=== PATIENT | female | born 1945 | race Caucasian/White ===

== ENCOUNTER 2016-12-27 00:30 | Inpatient (IN) | payer MEDICARE ==
[2016-12-27] MEDS ORDERED: DILTIAZEM HCL/D5W 125 MG/125 ML RTUINJ IV ONE (01:09)
[2016-12-27] MEDS ORDERED: DILTIAZEM HCL/D5W 125 ML IV PRN ×2 (01:09→09:03)
[2016-12-27] MEDS ORDERED: DILTIAZEM HCL INJ 25 MG/5 ML VIAL IV ONE (01:09)
--- NOTE | 2016-12-27 01:09 | ER Document Report ---
ED Cardiac - General Chief Complaint: Chest Pain Stated Complaint: CHEST PAIN Notes: The patient is a 71-year-old female, past medical history A. fib (not on any meds or blood thinners), presents with substernal chest pressure that started 2 hours ago. She has had this in the past and says that it is when she goes into rapid A. fib. She denies shortness of breath, syncope, nausea, vomiting, back pain, fevers, urinary symptoms, leg swelling or cough. TRAVEL OUTSIDE OF THE [place] IN LAST 30 DAYS: No - Related Data Allergies/Adverse Reactions: Penicillins Allergy (Verified 09/09/16 03:37) Past Medical History - General Information source: Patient - Social History Smoking Status: Unknown if Ever Smoked Family History: Reviewed & Not Pertinent - Past Medical History Cardiac Medical History: Reports: Hx Atrial Fibrillation Denies: Hx Congestive Heart Failure, Hx DVT, Hx Heart Attack, Hx Hypercholesterolemia, Hx Pulmonary Embolism Pulmonary Medical History: Denies: Hx Asthma, Hx COPD Neurological Medical History: Denies: Hx Seizures Endocrine Medical History: Denies: Hx Diabetes Mellitus Type 1, Hx Diabetes Mellitus Type 2, Hx Hyperthyroidism, Hx Hypothyroidism GI Medical History: Denies: Hx Cirrhosis, Hx Hepatitis Musculoskeltal Medical History: Reports Hx Arthritis - Probable arthritis. Chronic back pain. Psychiatric Medical History: Denies: Hx Depression Infectious Medical History: Denies: Hx Hepatitis Review of Systems - Review of Systems Notes: REVIEW OF SYSTEMS: CONSTITUTIONAL: -fevers, -chills EENT: -eye pain, -difficulty swallowing, -nasal congestion CARDIOVASCULAR: +chest pain, -syncope. RESPIRATORY: -cough, -SOB GASTROINTESTINAL: -abdominal pain, -nausea, -vomiting, -diarrhea GENITOURINARY: -dysuria, -hematuria MUSCULOSKELETAL: -back pain, -neck pain SKIN: -rash or skin lesions. HEMATOLOGIC: -easy bruising or bleeding. LYMPHATIC: -swollen, enlarged glands. NEUROLOGICAL: -altered mental status or loss of consciousness, -headache, - neurologic symptoms PSYCHIATRIC: -anxiety, -depression. ALL OTHER SYSTEMS REVIEWED AND NEGATIVE. Physical Exam - Vital signs Vitals: Resp 29 H 12/27/16 00:46 - Notes Notes: PHYSICAL EXAMINATION: GENERAL: Well-appearing, well-nourished and in no acute distress. HEAD: Atraumatic, normocephalic. EYES: Pupils equal round and reactive to light, extraocular movements intact, sclera anicteric, conjunctiva are normal. ENT: nares patent, oropharynx clear without exudates. Moist mucous membranes. NECK: Normal range of motion, supple without lymphadenopathy LUNGS: Breath sounds clear to auscultation bilaterally and equal. No wheezes rales or rhonchi. HEART: Irregularly irregular rate. ABDOMEN: Soft, nontender, normoactive bowel sounds. No guarding, no rebound. No masses appreciated. EXTREMITIES: Normal range of motion, no pitting or edema. No cyanosis. NEUROLOGICAL: Cranial nerves grossly intact. Normal speech, normal gait. Normal sensory, motor, and reflex exams. PSYCH: Normal mood, normal affect. SKIN: Warm, Dry, normal turgor, no rashes or lesions noted. Course - Re-evaluation Re-evalutation: 12/27/16 03:04 71 yo female with A fib w/ RVR. Chest pain improved after rate controlled. Heart rate controlled in the 90s after 15 mg diltiazem and on a 5 mg/hour drip. Chest x-ray does not show any evidence of fluid overload. She is not taking any of her home medications prescribed to her and not on any blood thinners. Will admit patient for further evaluation and treatment of her A. fib with RVR and chest pain. Dr. Banegas is not accepting any patients at this time. - Vital Signs Vital signs: Temp Pulse Resp BP Pulse Ox 20 142/110 H 97 12/27/16 03:01 12/27/16 03:01 12/27/16 03:01 - Laboratory Result Diagrams: 12/27/16 01:20 12/27/16 01:20 Laboratory results interpreted by me: 12/27/16 12/27/16 12/27/16 01:20 01:20 01:20 MCV 98 H RDW 14.5 H Seg Neutrophils % 82.0 H Lymphocytes % 8.7 L PT 16.5 H BUN 25 H Est GFR ( Amer) 54 L Est GFR (Non-Af Amer) 45 L Glucose 121 H Calcium 10.3 H NT-Pro-B Natriuret Pep 12/27/16 01:20 MCV RDW Seg Neutrophils % Lymphocytes % PT BUN Est GFR ( Amer) Est GFR (Non-Af Amer) Glucose Calcium NT-Pro-B Natriuret Pep 7970 H - Diagnostic Test Radiology reviewed: Image reviewed, Reports reviewed Radiology results interpreted by me: CXR: NAD - EKG Interpretation by Me EKG shows normal: QRS Complexes, ST-T Waves Rate: Tachycardia Rhythm: A.Fib Critical Care Note - Critical Care Note Total time excluding time spent on procedures (mins): 45 Discharge - Discharge Clinical Impression: Atrial fibrillation with RVR Chest pain Qualifiers: Chest pain type: unspecified Qualified Code(s): R07.9 - Chest pain, unspecified Condition: Good Disposition: ADMITTED INPATIENT
[2016-12-27] MEDS ORDERED: DILTIAZEM HCL INJ 25 MG/5 ML VIAL ONE (01:10)
[2016-12-27] MEDS ORDERED: ASPIRIN 325 MG TABLET PO ONE (01:10)
[2016-12-27 01:27] LABS: ABSOLUTE BASOPHILS # (AUTO) 0.1 10^3/uL (0.0-0.2); ABSOLUTE EOSINOPHILS # (AUTO) 0.1 10^3/uL (0.0-0.6); ABSOLUTE LYMPHOCYTES (AUTO) 0.8 10^3/uL (0.5-4.7); ABSOLUTE MONOCYTES (AUTO) 0.7 10^3/uL (0.1-1.4); ABSOLUTE NEUT (AUTO) 7.6 10^3/uL (1.7-8.2); BASOPHILS % (AUTO) 0.6 % (0-2); EOSINOPHILS % (AUTO) 0.7 % (0-6); HEMATOCRIT 38.3 % (36.0-47.0); HEMOGLOBIN 12.9 g/dL (12.0-15.5); HGB HCT DIFFERENCE 0.4; LYMPHOCYTES % (AUTO) 8.7 % (13-45); MEAN CORPUSCULAR HGB CONC 33.6 g/dL (32.0-36.0); MEAN CORPUSCULAR VOLUME 98 fl (80-97); RED CELL DISTRIBUTION WIDTH 14.5 % (11.5-14.0); WHITE BLOOD COUNT 9.3 10^3/uL (4.0-10.5)
[2016-12-27 01:38] LABS: PROTHROMBIN TIME 16.5 SEC (11.4-15.4)
[2016-12-27 01:39] LABS: PARTIAL THROMBOPLASTIN TIME 29.3 SEC (23.5-35.8)
[2016-12-27 01:45] LABS: ANION GAP 14 (5-19); BLOOD UREA NITROGEN 25 mg/dL (7-20); CALCIUM 10.3 mg/dL (8.4-10.2); CARBON DIOXIDE 22 mmol/L (22-30); CHLORIDE 107 mmol/L (98-107); CREATINE KINASE 98 U/L (30-135); CREATININE RESULT 1.19 mg/dL (0.52-1.25); GLUCOSE 121 mg/dL (75-110); POTASSIUM 4.6 mmol/L (3.6-5.0); SODIUM 143.3 mmol/L (137-145)
[2016-12-27 01:58] LABS: TROPONIN I 0.024 ng/mL
[2016-12-27] MEDS ORDERED: APIXABAN 5 MG TABLET PO ONE (05:24)
--- NOTE | 2016-12-27 08:05 | ER Document Report ---
ED General - General Chief Complaint: Chest Pain Stated Complaint: CHEST PAIN TRAVEL OUTSIDE OF THE [place] IN LAST 30 DAYS: No - Related Data Allergies/Adverse Reactions: Penicillins Allergy (Verified 09/09/16 03:37) Past Medical History - General Information source: Patient - Social History Smoking Status: Unknown if Ever Smoked Family History: Reviewed & Not Pertinent - Past Medical History Cardiac Medical History: Reports: Hx Atrial Fibrillation Denies: Hx Congestive Heart Failure, Hx DVT, Hx Heart Attack, Hx Hypercholesterolemia, Hx Pulmonary Embolism Pulmonary Medical History: Denies: Hx Asthma, Hx COPD Neurological Medical History: Denies: Hx Seizures Endocrine Medical History: Denies: Hx Diabetes Mellitus Type 1, Hx Diabetes Mellitus Type 2, Hx Hyperthyroidism, Hx Hypothyroidism GI Medical History: Denies: Hx Cirrhosis, Hx Hepatitis Musculoskeltal Medical History: Reports Hx Arthritis - Probable arthritis. Chronic back pain. Psychiatric Medical History: Denies: Hx Depression Infectious Medical History: Denies: Hx Hepatitis Physical Exam - Vital signs Vitals: Resp 29 H 12/27/16 00:46 Course - Re-evaluation Re-evalutation: 12/27/16 08:[address] Napoles on of the hospitalist team. Patient otherwise stable will be admitted to the [facility] for further evaluation of her A. fib RVR and chest pain. - Vital Signs Vital signs: Temp Pulse Resp BP Pulse Ox 97.6 F 15 133/97 H 95 12/27/16 07:06 12/27/16 07:01 12/27/16 06:09 12/27/16 07:01 - Laboratory Result Diagrams: 12/27/16 01:20 12/27/16 01:20 Laboratory results interpreted by me: 12/27/16 12/27/16 12/27/16 01:20 01:20 01:20 MCV 98 H RDW 14.5 H Seg Neutrophils % 82.0 H Lymphocytes % 8.7 L PT 16.5 H BUN 25 H Est GFR ( Amer) 54 L Est GFR (Non-Af Amer) 45 L Glucose 121 H Calcium 10.3 H NT-Pro-B Natriuret Pep 12/27/16 01:20 MCV RDW Seg Neutrophils % Lymphocytes % PT BUN Est GFR ( Amer) Est GFR (Non-Af Amer) Glucose Calcium NT-Pro-B Natriuret Pep 7970 H Discharge - Discharge Clinical Impression: Atrial fibrillation with RVR Chest pain Qualifiers: Chest pain type: unspecified Qualified Code(s): R07.9 - Chest pain, unspecified Condition: Good Disposition: ADMITTED INPATIENT Admitting Provider: Divian napoles Unit Admitted: [facility]
[2016-12-27] MEDS ORDERED: ACETAMINOPHEN 325 MG TABLET PO PRN (08:53)
[2016-12-27] MEDS ORDERED: ONDANSETRON HCL INJ/PF 4 MG/2 ML SDV IV PRN (08:59)
--- NOTE | 2016-12-27 09:20 | PDOC H&P ---
History of Present Illness Admission Date/PCP: 12/27/16 08:25 Patient complains of: Palpitation History of Present Illness: RENEE BONNER is a 71 year old female, with history of cardiomyopathy, congestive heart failure, ejection fraction of 40%, atrial fibrillation ran out of her medications for quite a while, started to develop palpitations last night subsequently followed by lightheadedness and generalized weakness with chest pain and mild shortness of breath. Denies diarrhea. Patient feels a little nauseated. No vomiting however. No chills or fever. No cough or sinus congestion. Patient denies intake of [id number]-[id number] decongestants, nor a lot of caffeine. Patient was admitted late last year for similar symptoms. Patient was discharged home on Coreg, digoxin, eliquis. Patient took the medication and subsequently was lost to follow-up. She denies having any local doctor. In the emergency room she was found to be in rapid atrial fibrillation , intravenous Cardizem was given, eventually she was placed on a drip and a heart rate was controlled. She was then referred for admission. Past Medical History Past Medical History: Medication reconciliation, patient currently has no medications as she has not been taking any for quite a while. Cardiac Medical History: Reports: Atrial Fibrillation, Congestive Heart Failure , Hypertension, Other - Cardiomyopathy ejection fraction of 40% Denies: DVT, Myocardial Infarction, Hyperlipidema, Pulmonary Embolism Pulmonary Medical History: Denies: Asthma, Chronic Obstructive Pulmonary Disease (COPD) Neurological Medical History: Denies: Seizures Endocrine Medical History: Denies: Diabetes Mellitus Type 1, Diabetes Mellitus Type 2, Hyperthyroidism, Hypothyroidism GI Medical History: Denies: Cirrhosis, Hepatitis Musculoskeltal Medical History: Reports: Arthritis - Probable arthritis. Chronic back pain., Other - Chronic back pain Psychiatric Medical History: Denies: Depression Past Surgical History Past Surgical History: Reports: None - Denies any surgery recently Social History Information Source: Patient Smoking Status: Never Smoker Frequency of Alcohol Use: None Hx Recreational Drug Use: No Drugs: None Family History Family History: None - Reported Parental Family History Reviewed: Yes Children Family History Reviewed: Yes Sibling(s) Family History Reviewed.: Yes Medication/Allergy Home Medications: Apixaban [Eliquis 2.5 mg Tablet] 5 mg PO BID #120 tablet 09/11/16 Aspirin [Ecotrin 81 mg EC Tablet] 81 mg PO DAILY tabec 09/11/16 Carvedilol [Coreg 6.25 mg Tablet] 6.25 mg PO Q12 #60 tablet 09/11/16 Digoxin [Lanoxin 0.125 mg Tablet] 0.125 mg PO DAILY #30 tablet 09/11/16 Furosemide [Lasix 40 mg Tablet] 20 mg PO DAILY #30 tablet 09/11/16 Lisinopril [Prinivil 5 mg Tablet] 5 mg PO Q12 #60 tablet 09/11/16 Allergies/Adverse Reactions: Penicillins Allergy (Verified 09/09/16 03:37) Review of Systems Constitutional: PRESENT: weakness - Generalized. ABSENT: chills, fever(s), headache(s), weight gain, weight loss Eyes: ABSENT: visual disturbances Ears: ABSENT: hearing changes Nose, Mouth, and Throat: ABSENT: headache(s), mouth pain, sore throat, vertigo Cardiovascular: PRESENT: chest pain, dyspnea on exertion, palpitations. ABSENT : edema, orthropnea Respiratory: PRESENT: dyspnea. ABSENT: cough, hemoptysis, sputum Gastrointestinal: ABSENT: abdominal pain, constipation, diarrhea, hematemesis, hematochezia, melena, nausea, vomiting Genitourinary: PRESENT: dysuria. ABSENT: hematuria, nocturia Musculoskeletal: ABSENT: joint swelling Integumentary: ABSENT: pruritus, rash, wounds Neurological: ABSENT: abnormal gait, abnormal speech, confusion, dizziness, focal weakness, syncope Psychiatric: ABSENT: anxiety, depression, homidical ideation, suicidal ideation Endocrine: ABSENT: cold intolerance, heat intolerance, polydipsia, polyphagia, polyuria Hematologic/Lymphatic: ABSENT: easy bleeding, easy bruising Physical Exam Vital Signs: Temp Pulse Resp BP Pulse Ox 97.6 F 15 133/97 H 95 12/27/16 07:06 12/27/16 07:01 12/27/16 06:09 12/27/16 07:01 General appearance: PRESENT: no acute distress, cooperative, well-developed, well-nourished Head exam: PRESENT: atraumatic, normocephalic Eye exam: PRESENT: conjunctiva pink, EOMI, PERRLA. ABSENT: scleral icterus Ear exam: PRESENT: normal external ear exam Mouth exam: PRESENT: moist, neck supple, tongue midline Throat exam: ABSENT: post pharyngeal erythema, tonsillar erythema Neck exam: ABSENT: carotid bruit, JVD, lymphadenopathy, thyromegaly Respiratory exam: PRESENT: clear to auscultation susan, unlabored. ABSENT: rales , rhonchi, wheezes Cardiovascular exam: PRESENT: irregular rhythm, +S1, +S2. ABSENT: diastolic murmur, rubs, systolic murmur Pulses: PRESENT: normal dorsalis pedis pul Vascular exam: PRESENT: normal capillary refill GI/Abdominal exam: PRESENT: normal bowel sounds, soft. ABSENT: distended, guarding, mass, organolmegaly, rebound, tenderness Rectal exam: PRESENT: deferred Extremities exam: PRESENT: full ROM. ABSENT: calf tenderness, clubbing, pedal edema Neurological exam: PRESENT: alert, awake, oriented to person, oriented to place , oriented to time, oriented to situation Psychiatric exam: PRESENT: appropriate affect, normal mood. ABSENT: homicidal ideation, suicidal ideation Skin exam: PRESENT: dry, intact, warm. ABSENT: cyanosis, rash Results Impressions: Chest X-Ray 12/27/16 01:05 IMPRESSION: HEART ENLARGED WITHOUT FAILURE. NO OTHER SIGNIFICANT RADIOGRAPHIC FINDING IN THE CHEST. Assessment & Plan - Diagnosis (1) Atrial fibrillation with RVR Is this a current diagnosis for this admission?: Yes (2) Chest pain Qualifiers: Chest pain type: unspecified Qualified Code(s): R07.9 - Chest pain, unspecified Is this a current diagnosis for this admission?: Yes (3) Hypercalcemia Is this a current diagnosis for this admission?: Yes (4) Dysuria Is this a current diagnosis for this admission?: Yes (5) Hypertension Qualifiers: Hypertension type: essential hypertension Qualified Code(s): I10 - Essential (primary) hypertension Is this a current diagnosis for this admission?: Yes (6) Cardiomyopathy Qualifiers: Cardiomyopathy type: unspecified Qualified Code(s): I42.9 - Cardiomyopathy, unspecified Is this a current diagnosis for this admission?: Yes (7) Chronic back pain Qualifiers: Back pain location: low back pain Back pain laterality: unspecified Sciatica presence: without sciatica Qualified Code(s): M54.5 - Low back pain; G89.29 - Other chronic pain Is this a current diagnosis for this admission?: Yes (8) Congestive heart failure Qualifiers: Congestive heart failure type: systolic Congestive heart failure chronicity: chronic Qualified Code(s): I50.22 - Chronic systolic ( congestive) heart failure Is this a current diagnosis for this admission?: Yes - Time Time Spent: 50 to 70 Minutes Within: within 72 hours - Inpatient Certification Based on my medical assessment, after consideration of the patient's comorbidities, presenting symptoms, or acuity I expect that the services needed warrant INPATIENT care.: Yes I certify that my determination is in accordance with my understanding of Medicare's requirements for reasonable and necessary INPATIENT services [42 CFR 412.3e].: Yes Medical Necessity: Significant Comorbidiites Make Outpatient Treatment Too Risky , Need Close Monitoring Due to Risk of Patient Decompensation, Need For IV Fluids, Risk of Complication if Not Cared For in Hospital 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 We will continue the Cardizem drip and wean. We will begin oral Cardizem. I will resume the patient's Coreg as well as eliquis. We will consult cardiology for further evaluation. We will obtain cardiac enzymes 3. We will do a urinalysis and gently hydrate the patient and monitor calcium level. Patient has been educated about compliance and importance of outpatient follow-up and she understood. Further testing depends on the initial evaluation as outlined above.
[2016-12-27] MEDS: NORMAL SALINE 1000 ML 1,000 ML IV PRN ×2 (09:46→23:55)
[2016-12-27] MEDS ORDERED: APIXABAN 2.5 MG TABLET PO SCH (10:00)
[2016-12-27] MEDS: APIXABAN 5 MG TABLET PO SCH ×2 (11:35→17:46)
[2016-12-27] MEDS: ASPIRIN 81 MG TABLET, ENT COATED PO SCH (11:36)
[2016-12-27] MEDS: CARVEDILOL 6.25 MG TABLET PO SCH ×2 (11:36→21:28)
[2016-12-27] MEDS: DOCUSATE SODIUM 100 MG CAPSULE PO SCH ×2 (11:37→17:48)
[2016-12-27 12:18] LABS: APPEARANCE,URINE CLEAR; BILIRUBIN,URINE NEGATIVE (NEGATIVE); GLUCOSE, URINE NEGATIVE (NEGATIVE); KETONES,URINE NEGATIVE (NEGATIVE); LEUKOCYTE ESTERASE,URINE NEGATIVE (NEGATIVE); NITRITE,URINE NEGATIVE (NEGATIVE); PROTEIN,URINE 30 mg/dL (NEGATIVE); URINE SPECIFIC GRAVITY 1.019
--- NOTE | 2016-12-27 13:13 | PDOC CONSULTATION ---
Consultation Consult Date: 12/27/16 Attending physician:: ALLYN MARTINEZ Consult reason:: Atrial fibrillation, CHF History of Present Illness Admission Date/PCP: 12/27/16 08:53 Patient complains of: Shortness of breath History of Present Illness: RENEE BONNER is a 71 year old female, with history of cardiomyopathy, congestive heart failure, ejection fraction of 40%, atrial fibrillation ran out of her medications for quite a while, started to develop palpitations last night subsequently followed by lightheadedness and generalized weakness with chest pain and mild shortness of breath. Denies diarrhea. Patient feels a little nauseated. No vomiting however. No chills or fever. No cough or sinus congestion. Patient denies intake of dhze-ygy-xgcrzur decongestants, nor a lot of caffeine. Patient was admitted late last year for similar symptoms. Patient was discharged home on Coreg, digoxin, eliquis. Patient took the medication and subsequently was lost to follow-up. She denies having any local doctor. In the emergency room she was found to be in rapid atrial fibrillation , intravenous Cardizem was given, eventually she was placed on a drip and a heart rate was controlled. I was asked to evaluate patient and help with management in view of CHF, atrial fibrillation, depressed LVEF Past Medical History Cardiac Medical History: Reports: Atrial Fibrillation, Congestive Heart Failure , Hypertension, Other - Cardiomyopathy ejection fraction of 40% Denies: DVT, Myocardial Infarction, Hyperlipidema, Pulmonary Embolism Pulmonary Medical History: Denies: Asthma, Chronic Obstructive Pulmonary Disease (COPD) Neurological Medical History: Denies: Seizures Endocrine Medical History: Denies: Diabetes Mellitus Type 1, Diabetes Mellitus Type 2, Hyperthyroidism, Hypothyroidism GI Medical History: Denies: Cirrhosis, Hepatitis Musculoskeltal Medical History: Reports: Arthritis - Probable arthritis. Chronic back pain., Other - Chronic back pain Psychiatric Medical History: Denies: Depression Past Surgical History Past Surgical History: Reports: None - Denies any surgery recently Social History Information Source: Patient Smoking Status: Never Smoker Frequency of Alcohol Use: None Hx Recreational Drug Use: No Drugs: None - Advance Directive Resuscitation Status: Full Code Family History Family History: None - Reported Parental Family History Reviewed: Yes Children Family History Reviewed: Yes Sibling(s) Family History Reviewed.: Yes - Negative for premature coronary artery disease or sudden cardiac in the family amongst first degree relatives. Medication/Allergy Home Medications: No Home Medications 12/27/16 Allergies/Adverse Reactions: Penicillins Allergy (Verified 09/09/16 03:37) Review of Systems Review of Systems: Please see history of present illness and past medical history as wall. Constitutional: No fever or chills reported. Head : No recent chronic headaches, recent head injury. Eyes: No recent eye pain, diplopia, redness, discharge, acute visual changes. Ears: No recent chronic ear pain, acute hearing loss, ear discharge. Oral cavity: No recent ulcerations, bleeding, oral cavity discomfort. Neck: No recent acute neck pain reported. Hematologic: No recent easy bruising or bleeding or hematologic malignancy reported. Lymphatic: No recent lymphatic malignancy, chronic lymphadenopathy reported yet Cardiovascular system review: See history of present illness. Respiratory system review: No recent chronic cough, hemoptysis, blood clots in the lungs reported. Shortness of breath on exertion Gastrointestinal system review: Negative for any recent acute or chronic abdominal pain, hematemesis, melena, recent change in bowel habits. Genitourinary system review: No recent acute or chronic hematuria, flank pain, UTI etc. reported. Skin system review: Negative for any recent abnormal bruising, no rash, no pruritus reported. Neurologic: No prior history of strokes, mini strokes, seizure disorder. Psychologic: No history of major psychosis or depression reported. Musculoskeletal: Minor aches and pains reported. No acute joint swelling reported. Endocrine: No recent polyuria, polydipsia, recent heat or cold intolerance. Physical Exam Vital Signs: Temp Pulse Resp BP Pulse Ox 97.6 F 25 H 134/92 H 93 12/27/16 07:06 12/27/16 10:01 12/27/16 10:01 12/27/16 10:01 Intake & Output 12/26/16 12/27/16 12/28/16 06:59 06:59 06:59 Weight 58.967 kg Exam: GENERAL: well-nourished and in no acute distress. Alert and oriented x3 HEAD: Atraumatic, normocephalic. EYES: Pupils equal round and reactive to light, extraocular movements intact, sclera anicteric, conjunctiva are normal. ENT: TMs normal, nares patent, oropharynx clear without exudates. Moist mucous membranes. No oral ulcerations or bleeding gums noted NECK: supple without lymphadenopathy. Trachea is central. No cervical or axillary lymphadenopathy noted. Carotids are 2+, JVD 12 CM LUNGS: Respiration seems nonlabored, no significant accessory muscle action noted. Bibasal a fine crackles are noted at both bases No significant dullness noted on percussion. CHEST: Palpation of the chest wall shows no significant chest wall tenderness. No other significant abnormalities noted. 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 ABDOMEN: Soft, no significant tenderness appreciated, normoactive bowel sounds. No guarding, no rebound. No rigidity noted . No masses appreciated. EXTREMITIES: Pedal pulses are 1-2+, no calf tenderness noted. No clubbing or cyanosis.1+ pedal edema noted NEUROLOGICAL: Focused neurological exam showed no significant neurologic deficit. Normal speech, no focal weakness appreciated. PSYCH: Normal mood, normal affect. Judgment and insight within normal limits. SKIN: No significant ecchymosis, rash, ulcerations or signs of pruritus noted. MUSCULOSKELETAL EXAM: No significant joint swelling noted. Results Laboratory Results: 12/27/16 11:55 Urine Color YELLOW Urine Appearance CLEAR Urine pH 6.0 Ur Specific [place] 1.019 Urine Protein 30 H Urine Glucose (UA) NEGATIVE Urine Ketones NEGATIVE Urine Blood NEGATIVE Urine Nitrite NEGATIVE Ur Leukocyte Esterase NEGATIVE Urine WBC (Auto) 0 EKG Comments: Atrial fibrillation with rapid ventricular response. No acute ST-T wave changes are noted. Impressions: Chest X-Ray 12/27/16 01:05 IMPRESSION: HEART ENLARGED WITHOUT FAILURE. NO OTHER SIGNIFICANT RADIOGRAPHIC FINDING IN THE CHEST. Assessment & Plan - Diagnosis (1) Atrial fibrillation with RVR Is this a current diagnosis for this admission?: Yes (2) Chest pain Qualifiers: Chest pain type: unspecified Qualified Code(s): R07.9 - Chest pain, unspecified Is this a current diagnosis for this admission?: Yes (3) Hypertension Qualifiers: Hypertension type: essential hypertension Qualified Code(s): I10 - Essential (primary) hypertension Is this a current diagnosis for this admission?: Yes (4) Cardiomyopathy Qualifiers: Cardiomyopathy type: unspecified Qualified Code(s): I42.9 - Cardiomyopathy, unspecified Is this a current diagnosis for this admission?: Yes (5) Noncompliance Is this a current diagnosis for this admission?: Yes - Notes Notes: Atrial fibrillation with rapid ventricular response: Currently on Cardizem drip. Will recommend switching to beta brooks and digoxin for rate control in view of history of CHF and cardiomyopathy. Chest pain: Patient did have a recent nuclear stress test which was negative for pharmacologic stress-induced ischemia. At this point, will follow patient with medical management. Hypertension: Reasonably well controlled. Blood pressure goal in this patient is 135/85 or less. This was discussed with the patient. Currently blood pressure under reasonable control. Better medication for this patient are LINDA inhibitor/ARB/beta brooks etc. discussed side effects of uncontrolled hypertension and also severe hypotension. Cardiomyopathy: We will optimize medical therapy. Noncompliance: Patient will benefit from CHF pathway education, social support and strategic planner intervention. - Time Time Spent: 30 to 50 Minutes - CODE STATUS was discussed, patient remains full code. Surrogate decision-maker unchanged. Multiple medical problems were addressed.More than 50% of the time spent coordinating care, discussing management plans with involved caregivers. Management plans discussed with involved personnels. Medical decision making was of moderate complexity.
[2016-12-27] MEDS ORDERED: DIGOXIN 0.25 MG TABLET PO ONE (14:30)
[2016-12-27] MEDS: DILTIAZEM HCL 30 MG TABLET PO SCH ×3 (14:50→23:41)
[2016-12-27 15:31] LABS: CREATINE KINASE MB 2.24 ng/mL (<4.55); TROPONIN I 0.025 ng/mL
[2016-12-27] MEDS ORDERED: INFLUENZA ADLT QUAD (36MOS+) 2016-17 VAC 0.5 ML SYR IM PRN (16:31)
[2016-12-27 21:04] LABS: CREATINE KINASE MB 2.34 ng/mL (<4.55); TROPONIN I 0.026 ng/mL
[2016-12-27] MEDS: FUROSEMIDE INJ/PF 40 MG/4 ML SDV IV SCH (21:28)
[2016-12-28] MEDS: DILTIAZEM HCL 30 MG TABLET PO SCH ×2 (06:38→11:56)
[2016-12-28] MEDS: LANSOPRAZOLE 30 MG TAB.RAP.DR PO SCH (06:38)
[2016-12-28 07:36] LABS: ANION GAP 10 (5-19); BLOOD UREA NITROGEN 23 mg/dL (7-20); CALCIUM 9.8 mg/dL (8.4-10.2); CARBON DIOXIDE 26 mmol/L (22-30); CHLORIDE 106 mmol/L (98-107); CREATININE RESULT 1.24 mg/dL (0.52-1.25); GLUCOSE 89 mg/dL (75-110); POTASSIUM 3.8 mmol/L (3.6-5.0); SODIUM 141.9 mmol/L (137-145)
--- NOTE | 2016-12-28 08:12 | EKG REPORT ---
SEVERITY:- ABNORMAL ECG - ATRIAL FIBRILLATION, V-RATE [id number] ABNRM R PROG, CONSIDER ASMI OR LEAD PLACEMENT BORDERLINE T WAVE ABNORMALITIES : Confirmed by: Sury Salinas MD 28-Dec-2016 08:11:55
[2016-12-28] MEDS: ASPIRIN 81 MG TABLET, ENT COATED PO SCH (10:27)
[2016-12-28] MEDS: CARVEDILOL 6.25 MG TABLET PO SCH ×2 (10:27→21:08)
[2016-12-28] MEDS: FUROSEMIDE INJ/PF 40 MG/4 ML SDV IV SCH (10:28)
[2016-12-28] MEDS: DIGOXIN 0.125 MG TABLET PO SCH (10:28)
[2016-12-28] MEDS: APIXABAN 5 MG TABLET PO SCH ×2 (10:29→17:17)
[2016-12-28] MEDS: DOCUSATE SODIUM 100 MG CAPSULE PO SCH ×2 (10:42→17:24)
--- NOTE | 2016-12-28 15:09 | PDOC PROGRESS REPORT ---
Subjective Progress Note for:: 12/28/16 Subjective:: Patient improved. Palpitation is less. Patient started on digoxin by cardiology service. She is off Cardizem drip. Patient denies any chest pain, shortness of breath, nausea or vomiting, dizziness. Able to ambulate around. shelter monitor showing episodes of bradycardia briefly Physical Exam Vital Signs: Temp Pulse Resp BP Pulse Ox 97.2 F 100 18 122/79 98 12/28/16 12:06 12/28/16 12:06 12/28/16 12:06 12/28/16 12:06 12/28/16 12:06 Intake & Output 12/27/16 12/28/16 12/29/16 06:59 06:59 06:59 Intake Total 1960 520 Output Total 800 Balance 1160 520 Weight 81.1 kg General appearance: PRESENT: no acute distress, cooperative Head exam: PRESENT: normocephalic Eye exam: PRESENT: EOMI Mouth exam: PRESENT: moist, neck supple Neck exam: ABSENT: JVD Respiratory exam: PRESENT: clear to auscultation susan. ABSENT: rhonchi, wheezes Cardiovascular exam: PRESENT: irregular rhythm. ABSENT: gallop GI/Abdominal exam: PRESENT: normal bowel sounds, soft. ABSENT: distended, tenderness Extremities exam: PRESENT: other - Trace lower extremity edema Neurological exam: PRESENT: alert, awake, oriented to situation Psychiatric exam: ABSENT: agitated Focused psych exam: ABSENT: restlessness Skin exam: PRESENT: dry, warm. ABSENT: cyanosis Results Laboratory Results: 12/28/16 06:47 12/28/16 06:47 Sodium 141.9 Potassium 3.8 Chloride 106 Carbon Dioxide 26 Anion Gap 10 BUN 23 H Creatinine 1.24 Est GFR ( Amer) 52 L Est GFR (Non-Af Amer) 43 L Glucose 89 Calcium 9.8 12/27/16 12/27/16 12/27/16 14:24 14:25 20:31 Creatine Kinase 71 75 CK-MB (CK-2) 2.24 Troponin I 0.025 12/27/16 20:31 Creatine Kinase CK-MB (CK-2) 2.34 Troponin I 0.026 Impressions: Chest X-Ray 12/27/16 01:05 IMPRESSION: HEART ENLARGED WITHOUT FAILURE. NO OTHER SIGNIFICANT RADIOGRAPHIC FINDING IN THE CHEST. Assessment & Plan - Diagnosis (1) Atrial fibrillation with RVR Is this a current diagnosis for this admission?: Yes (2) Chest pain Qualifiers: Chest pain type: unspecified Qualified Code(s): R07.9 - Chest pain, unspecified Is this a current diagnosis for this admission?: Yes (3) Hypercalcemia Is this a current diagnosis for this admission?: Yes (4) Dysuria Is this a current diagnosis for this admission?: Yes (5) Hypertension Qualifiers: Hypertension type: essential hypertension Qualified Code(s): I10 - Essential (primary) hypertension Is this a current diagnosis for this admission?: Yes (6) Cardiomyopathy Qualifiers: Cardiomyopathy type: unspecified Qualified Code(s): I42.9 - Cardiomyopathy, unspecified Is this a current diagnosis for this admission?: Yes (7) Chronic back pain Qualifiers: Back pain location: low back pain Back pain laterality: unspecified Sciatica presence: without sciatica Qualified Code(s): M54.5 - Low back pain; G89.29 - Other chronic pain Is this a current diagnosis for this admission?: Yes (8) Congestive heart failure Qualifiers: Congestive heart failure type: systolic Congestive heart failure chronicity: chronic Qualified Code(s): I50.22 - Chronic systolic ( congestive) heart failure Is this a current diagnosis for this admission?: Yes - Time Time Spent with patient: 15-24 minutes - Plan Summary Plan Summary: Discontinue Cardizem. Increase activity and ambulate around. Continue digoxin and Coreg. Monitor for bradycardia. It is stable , may be able to be discharged in the morning.
--- NOTE | 2016-12-28 15:58 | PDOC PROGRESS REPORT ---
Subjective Progress Note for:: 12/28/16 Subjective:: Patient seems to be doing better with gradual improvement. Pt is denying any chest arm or neck discomfort. Patient denying any PND, orthopnea. Patient denied any sustained palpitations, dizziness, syncope, near syncope. Patient denying any fever chills. Patient denying any other significant discomfort. Patient is maintaining atrial fibrillation with controlled ventricular response. Review of systems: Rest review of systems negative. Medications: Medications have been reviewed. Physical Exam Vital Signs: Temp Pulse Resp BP Pulse Ox 97.2 F 100 18 122/79 98 12/28/16 12:06 12/28/16 12:06 12/28/16 12:06 12/28/16 12:06 12/28/16 12:06 Intake & Output 12/27/16 12/28/16 12/29/16 06:59 06:59 06:59 Intake Total 1960 520 Output Total 800 Balance 1160 520 Weight 81.1 kg Exam: GENERAL: well-nourished and in no acute distress. Alert and oriented x3 HEAD: Atraumatic, normocephalic. EYES: Pupils equal round and reactive to light, extraocular movements intact, sclera anicteric, conjunctiva are normal. ENT: TMs normal, nares patent, oropharynx clear without exudates. Moist mucous membranes. No oral ulcerations or bleeding gums noted NECK: supple without lymphadenopathy. Trachea is central. No cervical or axillary lymphadenopathy noted. Carotids are 2+, JVD 10 CM LUNGS: Respiration seems nonlabored, no significant accessory muscle action noted. Bibasal a fine crackles noted at extreme base. No wheezes rales or rhonchi noted. No significant dullness noted on percussion. CHEST: Palpation of the chest wall shows no significant chest wall tenderness. No other significant abnormalities noted. 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 ABDOMEN: Soft, no significant tenderness appreciated, normoactive bowel sounds. No guarding, no rebound. No rigidity noted . No masses appreciated. EXTREMITIES: Pedal pulses are 1-2+, no calf tenderness noted. No clubbing or cyanosis.1+ pedal edema noted NEUROLOGICAL: Focused neurological exam showed no significant neurologic deficit. Normal speech, no focal weakness appreciated. PSYCH: Normal mood, normal affect. Judgment and insight within normal limits. SKIN: No significant ecchymosis, rash, ulcerations or signs of pruritus noted. MUSCULOSKELETAL EXAM: No significant joint swelling noted. Results Laboratory Results: 12/28/16 06:47 12/28/16 06:47 Sodium 141.9 Potassium 3.8 Chloride 106 Carbon Dioxide 26 Anion Gap 10 BUN 23 H Creatinine 1.24 Est GFR ( Amer) 52 L Est GFR (Non-Af Amer) 43 L Glucose 89 Calcium 9.8 12/27/16 12/27/16 12/27/16 14:24 14:25 20:31 Creatine Kinase 71 75 CK-MB (CK-2) 2.24 Troponin I 0.025 12/27/16 20:31 Creatine Kinase CK-MB (CK-2) 2.34 Troponin I 0.026 Impressions: Chest X-Ray 12/27/16 01:05 IMPRESSION: HEART ENLARGED WITHOUT FAILURE. NO OTHER SIGNIFICANT RADIOGRAPHIC FINDING IN THE CHEST. Assessment & Plan - Diagnosis (1) Atrial fibrillation with RVR Is this a current diagnosis for this admission?: Yes (2) Chest pain Qualifiers: Chest pain type: unspecified Qualified Code(s): R07.9 - Chest pain, unspecified Is this a current diagnosis for this admission?: Yes (3) Hypertension Qualifiers: Hypertension type: essential hypertension Qualified Code(s): I10 - Essential (primary) hypertension Is this a current diagnosis for this admission?: Yes (4) Cardiomyopathy Qualifiers: Cardiomyopathy type: unspecified Qualified Code(s): I42.9 - Cardiomyopathy, unspecified Is this a current diagnosis for this admission?: Yes (5) Noncompliance Is this a current diagnosis for this admission?: Yes (6) Congestive heart failure Qualifiers: Congestive heart failure type: combined Congestive heart failure chronicity: acute on chronic Qualified Code(s): I50.43 - Acute on chronic combined systolic (congestive) and diastolic (congestive) heart failure Is this a current diagnosis for this admission?: YesPlan: Most likely precipitated by noncompliance both dietary and medications. Continue IV diuretics. Have optimized medical therapy for underlying CHF. Patient will benefit from CHF education prior to discharge. - Notes Notes: Atrial fibrillation with rapid ventricular response: Heart rate under good control. Elevation placed on carvedilol and digoxin for rate control in view of history of CHF and cardiomyopathy. Chest pain: Today patient no longer complained of chest discomfort. Patient did have a recent nuclear stress test which was negative for pharmacologic stress-induced ischemia. At this point, will follow patient with medical management. Cardiac enzymes so far has been negative. Hypertension: Reasonably well controlled. Blood pressure goal in this patient is 135/85 or less. This was discussed with the patient. Currently blood pressure under reasonable control. Better medication for this patient are LINDA inhibitor/ARB/beta brooks etc. discussed side effects of uncontrolled hypertension and also severe hypotension. Cardiomyopathy: We will optimize medical therapy. Noncompliance: Patient will benefit from CHF pathway education, social support and management planner intervention. CHF: This seems compensated on clinical exam. Continue baseline diuretic therapy. Patient should be educated in CHF pathway. This should include salt and fluid restriction, daily weighing, adjustment of diuretic therapy based on weight gain et cetera. Patient to be educated that if there is gain of more than 2 pounds in a day or more than 5 pounds in a week, this indicates fluid retention and patient may need to adjust the diuretic therapy. Symptoms associated with CHF exacerbation to be discussed with the patient. This could include rapid weight gain, abdominal bloating, increased shortness of breath, fatigue, tiredness, cardiac arrhythmias et cetera. - Time Time with patient: Greater than 35 minutes - CODE STATUS was discussed, patient remains full code. Surrogate decision-maker unchanged. Multiple medical problems were addressed.More than 50% of the time spent coordinating care, discussing management plans with involved caregivers. Management plans discussed with involved personnels. Medical decision making was of moderate complexity. CHF education performed. Patient instructed in salt and fluid restriction.
[2016-12-28] MEDS: FUROSEMIDE INJ/PF 20 MG/2 ML SDV IV SCH (21:07)
[2016-12-29] MEDS ORDERED: LORAZEPAM INJ 2 MG/1 ML VIAL ONE (01:00)
[2016-12-29] MEDS ORDERED: LORAZEPAM INJ 2 MG/1 ML VIAL IV ONE (01:15)
[2016-12-29] MEDS: LANSOPRAZOLE 30 MG TAB.RAP.DR PO SCH (07:36)
[2016-12-29] MEDS ORDERED: LISINOPRIL 5 MG TABLET PO SCH (10:00)
[2016-12-29] MEDS: FUROSEMIDE INJ/PF 20 MG/2 ML SDV IV SCH (10:24)
[2016-12-29] MEDS: DOCUSATE SODIUM 100 MG CAPSULE PO SCH (10:24)
[2016-12-29] MEDS: APIXABAN 5 MG TABLET PO SCH (10:34)
[2016-12-29] MEDS: ASPIRIN 81 MG TABLET, ENT COATED PO SCH (10:35)
[2016-12-29] MEDS: DIGOXIN 0.125 MG TABLET PO SCH (10:35)
[2016-12-29] MEDS: CARVEDILOL 6.25 MG TABLET PO SCH (10:35)
--- NOTE | 2016-12-29 16:08 | PDOC DISCHARGE SUMMARY ---
General - Admit/Disc Date/PCP Admission Date/Primary Care Provider: 12/27/16 08:53 Discharge Date: 12/29/16 - Discharge Diagnosis (1) Atrial fibrillation with RVR Is this a current diagnosis for this admission?: Yes (2) Chest pain Is this a current diagnosis for this admission?: Yes (3) Hypercalcemia Is this a current diagnosis for this admission?: Yes (4) Dysuria Is this a current diagnosis for this admission?: Yes (5) Hypertension Is this a current diagnosis for this admission?: Yes (6) Cardiomyopathy Is this a current diagnosis for this admission?: Yes (7) Chronic back pain Is this a current diagnosis for this admission?: Yes (8) Congestive heart failure Is this a current diagnosis for this admission?: Yes - Additional Information Resuscitation Status: Full Code Discharge Diet: Cardiac - low-fat low-salt Discharge Activity: Activity As Tolerated, Balance Activity w/Rest Home Medications: Apixaban [Eliquis 5 mg Tablet] 5 mg PO BID #60 tablet 12/29/16 Aspirin [Ecotrin 81 mg EC Tablet] 81 mg PO DAILY #30 tabec 12/29/16 Carvedilol [Coreg 6.25 mg Tablet] 6.25 mg PO Q12 #60 tablet 12/29/16 Digoxin [Lanoxin 0.125 mg Tablet] 0.125 mg PO DAILY #30 tablet 12/29/16 Lansoprazole [Prevacid 30 mg Odt Tablet] 30 mg PO Q6AM #30 tab.rap 12/29/16 Lisinopril [Prinivil 5 mg Tablet] 2.5 mg PO DAILY #30 tablet 12/29/16 Additional Information: Patient to follow-up with primary care physician for refill of medications. History of Present Illness Patient complains of: Palpitations History of Present Illness: RENEE BONNER is a 71 year old female, with history of cardiomyopathy, congestive heart failure, ejection fraction of 40%, atrial fibrillation ran out of her medications for quite a while, started to develop palpitations last night subsequently followed by lightheadedness and generalized weakness with chest pain and mild shortness of breath. Denies diarrhea. Patient feels a little nauseated. No vomiting however. No chills or fever. No cough or sinus congestion. Patient denies intake of [id number] decongestants, nor a lot of caffeine. Patient was admitted late last year for similar symptoms. Patient was discharged home on Coreg, digoxin, eliquis. Patient took the medication and subsequently was lost to follow-up. She denies having any local doctor. In the emergency room she was found to be in rapid atrial fibrillation , intravenous Cardizem was given, eventually she was placed on a drip and a heart rate was controlled. She was then referred for admission. Hospital Course Hospital Course: The patient was admitted to [facility]. The patient was resumed back on eliquis for anticoagulation. The patient was maintained on Cardizem drip. Cardiology was consulted. He was resumed back on her Coreg, as well as digoxin, and Cardizem drip was discontinued. Patient likewise was placed on low-dose LINDA inhibitor. The patient significantly improved. Patient did not have heart failure at this time. Patient improved and she was educated about compliance and medication refill and she understood. Cardiac enzymes were obtained and they were negative. The rest of the hospital station unremarkable. Was cleared by cardiology service to be discharged. Patient agreed to follow-up with cardiology as well. Physical Exam Vital Signs: Temp Pulse Resp BP Pulse Ox 97.3 F 62 16 118/67 97 12/29/16 15:37 12/29/16 15:37 12/29/16 07:19 12/29/16 15:37 12/29/16 15:37 Intake & Output 12/28/16 12/29/16 12/30/16 06:59 06:59 06:59 Intake Total 1960 1655 Output Total 800 100 Balance 1160 1555 Weight 81.1 kg 80 kg General appearance: PRESENT: no acute distress, cooperative Head exam: PRESENT: normocephalic Eye exam: PRESENT: EOMI Mouth exam: PRESENT: moist, neck supple Neck exam: ABSENT: JVD Respiratory exam: PRESENT: clear to auscultation susan Cardiovascular exam: PRESENT: irregular rhythm. ABSENT: gallop GI/Abdominal exam: PRESENT: soft. ABSENT: distended, tenderness Extremities exam: ABSENT: pedal edema Neurological exam: PRESENT: alert, awake, oriented to situation Skin exam: PRESENT: dry, warm. ABSENT: cyanosis Results Laboratory Results: 12/28/16 06:47 12/27/16 12/27/16 12/27/16 14:24 14:25 20:31 Creatine Kinase 71 75 CK-MB (CK-2) 2.24 Troponin I 0.025 12/27/16 20:31 Creatine Kinase CK-MB (CK-2) 2.34 Troponin I 0.026 Impressions: Chest X-Ray 12/27/16 01:05 IMPRESSION: HEART ENLARGED WITHOUT FAILURE. NO OTHER SIGNIFICANT RADIOGRAPHIC FINDING IN THE CHEST. Qualifiers PATEINT BEING DISCHARGED WITH ANY OF THE FOLLOWING DIAGNOSIS?: No Plan Discharge Plan: Follow-up with primary care physician in one week. Follow-up with cardiology, Dr. Guerrier in 1-2 weeks. Time Spent: Less than 30 Minutes
[2016-12-29 16:13] VITALS: BP 151/79
--- NOTE | 2016-12-29 19:54 | PDOC PROGRESS REPORT ---
Subjective Progress Note for:: 12/29/16 Subjective:: Patient seems to be doing better with gradual improvement. Pt is denying any chest arm or neck discomfort. Patient denying any PND, orthopnea. Patient denied any sustained palpitations, dizziness, syncope, near syncope. Patient denying any fever chills. Patient denying any other significant discomfort. Patient is maintaining atrial fibrillation with controlled ventricular response. Patient still has some pedal edema but has been walking around without any difficulty. Review of systems: Rest review of systems negative. Medications: Medications have been reviewed. Physical Exam Vital Signs: Temp Pulse Resp BP Pulse Ox 97.3 F 62 20 151/79 H 97 12/29/16 16:13 12/29/16 16:13 12/29/16 16:13 12/29/16 16:13 12/29/16 16:13 Intake & Output 12/28/16 12/29/16 12/30/16 06:59 06:59 06:59 Intake Total 1960 1655 Output Total 800 100 Balance 1160 1555 Weight 81.1 kg 80 kg Exam: GENERAL: well-nourished and in no acute distress. Alert and oriented x3 HEAD: Atraumatic, normocephalic. EYES: Pupils equal round and reactive to light, extraocular movements intact, sclera anicteric, conjunctiva are normal. ENT: TMs normal, nares patent, oropharynx clear without exudates. Moist mucous membranes. No oral ulcerations or bleeding gums noted NECK: supple without lymphadenopathy. Trachea is central. No cervical or axillary lymphadenopathy noted. Carotids are 2+, JVD WNL LUNGS: Respiration seems nonlabored, no significant accessory muscle action noted. Breath sounds clear to auscultation bilaterally and equal noted. No wheezes rales or rhonchi noted. No significant dullness noted on percussion. CHEST: Palpation of the chest wall shows no significant chest wall tenderness. No other significant abnormalities noted. 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 ABDOMEN: Soft, no significant tenderness appreciated, normoactive bowel sounds. No guarding, no rebound. No rigidity noted . No masses appreciated. EXTREMITIES: Pedal pulses are 1-2+, no calf tenderness noted. No clubbing or cyanosis.1+ pedal edema noted NEUROLOGICAL: Focused neurological exam showed no significant neurologic deficit. Normal speech, no focal weakness appreciated. PSYCH: Normal mood, normal affect. Judgment and insight within normal limits. SKIN: No significant ecchymosis, rash, ulcerations or signs of pruritus noted. MUSCULOSKELETAL EXAM: No significant joint swelling noted. Results Laboratory Results: 12/28/16 06:47 12/27/16 12/27/16 12/27/16 14:24 14:25 20:31 Creatine Kinase 71 75 CK-MB (CK-2) 2.24 Troponin I 0.025 12/27/16 20:31 Creatine Kinase CK-MB (CK-2) 2.34 Troponin I 0.026 Impressions: Chest X-Ray 12/27/16 01:05 IMPRESSION: HEART ENLARGED WITHOUT FAILURE. NO OTHER SIGNIFICANT RADIOGRAPHIC FINDING IN THE CHEST. Assessment & Plan - Diagnosis (1) Atrial fibrillation with RVR Is this a current diagnosis for this admission?: Yes (2) Chest pain Qualifiers: Chest pain type: unspecified Qualified Code(s): R07.9 - Chest pain, unspecified Is this a current diagnosis for this admission?: Yes (3) Hypertension Qualifiers: Hypertension type: essential hypertension Qualified Code(s): I10 - Essential (primary) hypertension Is this a current diagnosis for this admission?: Yes (4) Cardiomyopathy Qualifiers: Cardiomyopathy type: unspecified Qualified Code(s): I42.9 - Cardiomyopathy, unspecified Is this a current diagnosis for this admission?: Yes (5) Noncompliance Is this a current diagnosis for this admission?: Yes (6) Congestive heart failure Qualifiers: Congestive heart failure type: combined Congestive heart failure chronicity: acute on chronic Qualified Code(s): I50.43 - Acute on chronic combined systolic (congestive) and diastolic (congestive) heart failure Is this a current diagnosis for this admission?: Yes - Notes Notes: Atrial fibrillation with now controlled ventricular response. Atrial fibrillation is chronic, Heart rate under good control. Currently on carvedilol and digoxin for rate control in view of history of CHF and cardiomyopathy. Chest pain: Today patient no longer complained of any recurrence of chest discomfort. Patient did have a recent nuclear stress test which was negative for pharmacologic stress-induced ischemia. At this point, will follow patient with medical management. Cardiac enzymes so far has been negative. Hypertension: Reasonably well controlled. Blood pressure goal in this patient is 135/85 or less. This was discussed with the patient. Currently blood pressure under reasonable control. Better medication for this patient are LINDA inhibitor/ARB/beta brooks etc. discussed side effects of uncontrolled hypertension and also severe hypotension. Cardiomyopathy: We will optimize medical therapy. Noncompliance: Patient will benefit from CHF pathway education, social support and event planner intervention. CHF: This seems compensated on clinical exam. Patient today again advised on salt and fluid restriction and daily weighing etc. - Time Time with patient: 15-25 minutes - CODE STATUS was discussed, patient remains full code. Surrogate decision-maker unchanged. Multiple medical problems were addressed.More than 50% of the time spent coordinating care, discussing management plans with involved caregivers. Management plans discussed with involved personnels. Medical decision making was of moderate complexity.
== END 2016-12-29 16:45 | disposition home or self-care (01) | DRG 309 ==
LOC: ER 00:30 → UNDOADMIN 08:25 → EH 08:25 → 3W 15:09
DX: I48.2 Chronic atrial fibrillation (principal); I50.22 Chronic systolic (congestive) heart failure; I10 Essential (primary) hypertension; I42.9 Cardiomyopathy, unspecified; E83.52 Hypercalcemia; R07.9 Chest pain, unspecified; R30.0 Dysuria; G89.29 Other chronic pain; M54.9 Dorsalgia, unspecified; M19.90 Unspecified osteoarthritis, unspecified site; Z91.19 Patient's noncompliance with other medical treatment and regimen
CPT/HCPCS: 36415; 71010; 80048; 81001; 82550; 82553; 83880; 84443; 84484; 85025; 85610; 85730; 93005; 93010; 99285; J1940; J2060; J3490; J7030

== ENCOUNTER 2017-06-10 02:30 | Inpatient (IN) | payer MEDICARE ==
[2017-06-10] MEDS ORDERED: ASPIRIN 81 MG TABLET, CHEWABLE PO ONE (02:55)
[2017-06-10] MEDS ORDERED: NORMAL SALINE 1000 ML 500 ML IV ONE (03:13)
[2017-06-10] MEDS ORDERED: DILTIAZEM HCL INJ 25 MG/5 ML VIAL IV ONE (03:24)
[2017-06-10] MEDS ORDERED: DILTIAZEM HCL/D5W 125 ML IV PRN ×2 (03:24→05:58)
--- NOTE | 2017-06-10 03:25 | ER Document Report ---
ED Cardiac - General Chief Complaint: Chest Pain Stated Complaint: CHEST PAIN WITH PAIN ALL OVER Time Seen by Provider: 06/10/17 03:06 Notes: Patient is a 71-year-old female that comes emergency department for chief complaint of chest pain that began about 2 hours prior to arrival. She states she feels a discomfort occasionally in her chest, she states she still has a small feeling of discomfort in her chest. She denies shortness of breath. She reports that she has a past medical history of atrial fibrillation, she states she does not see any physicians, she does not take any medications. She denies history of OR, denies smoking or alcohol, denies recreational drugs. She cannot recall any other medical history at this time. TRAVEL OUTSIDE OF THE [place] IN LAST 30 DAYS: No - Related Data Allergies/Adverse Reactions: Penicillins Allergy (Verified 06/10/17 02:43) Past Medical History - General Information source: Patient - Social History Smoking Status: Never Smoker Frequency of alcohol use: None Drug Abuse: None Lives with: Family Family History: None - Reported - Past Medical History Cardiac Medical History: Reports: Hx Atrial Fibrillation, Hx Congestive Heart Failure, Hx Hypertension Denies: Hx DVT, Hx Heart Attack, Hx Hypercholesterolemia, Hx Pulmonary Embolism Pulmonary Medical History: Denies: Hx Asthma, Hx COPD Neurological Medical History: Denies: Hx Seizures Endocrine Medical History: Denies: Hx Diabetes Mellitus Type 1, Hx Diabetes Mellitus Type 2, Hx Hyperthyroidism, Hx Hypothyroidism Renal/ Medical History: Denies: Hx Peritoneal Dialysis GI Medical History: Denies: Hx Cirrhosis, Hx Hepatitis Musculoskeltal Medical History: Reports Hx Arthritis - Probable arthritis. Chronic back pain. Psychiatric Medical History: Denies: Hx Depression Infectious Medical History: Denies: Hx Hepatitis Review of Systems - Review of Systems Constitutional: No symptoms reported EENT: No symptoms reported Cardiovascular: See HPI Respiratory: No symptoms reported Gastrointestinal: No symptoms reported Genitourinary: No symptoms reported Female Genitourinary: No symptoms reported Musculoskeletal: No symptoms reported Skin: No symptoms reported Hematologic/Lymphatic: No symptoms reported Neurological/Psychological: No symptoms reported Physical Exam - Vital signs Vitals: Temp Pulse Resp BP Pulse Ox 97.7 F 152 H 16 118/105 H 95 06/10/17 02:45 06/10/17 02:45 06/10/17 02:45 06/10/17 02:45 06/10/17 02:45 Interpretation: Normal - General General appearance: Appears well In distress: None - HEENT Head: Normocephalic, Atraumatic Eyes: Normal Pupils: PERRL - Respiratory Respiratory status: No respiratory distress Chest status: Nontender Breath sounds: Normal. No: Decreased air movement, Wheezing Chest palpation: Normal - Cardiovascular Rhythm: Irregularly irregular, Tachycardia Murmur: No - Abdominal Inspection: Normal Distension: No distension Bowel sounds: Normal Tenderness: Nontender. No: Tender, Guarding Organomegaly: No organomegaly - Back Back: Normal, Nontender. No: Tender, CVA tenderness - Extremities General upper extremity: Normal inspection, Nontender, Normal color, Normal ROM , Normal temperature General lower extremity: Normal inspection, Nontender, Normal color, Normal ROM , Normal temperature, Normal weight bearing. No: Danii's sign - Neurological Neuro grossly intact: Yes Cognition: Normal Orientation: AAOx4 [place] Coma Scale Eye Opening: Spontaneous [place] Coma Scale Verbal: Oriented [place] Coma Scale Motor: Obeys Commands Fausto Coma Scale Total: 15 Speech: Normal Motor strength normal: LUE, RUE, LLE, RLE Sensory: Normal - Psychological Associated symptoms: Normal affect, Normal mood - Skin Skin Temperature: Warm Skin Moisture: Dry Skin Color: Normal Course - Re-evaluation Re-evalutation: Patient initially given aspirin, noted to be in atrial fibrillation with RVR, complaining of chest discomfort. Reviewing her medical record here shows that she has a history of A. fib, CHF, hypertension, cardiomyopathy with low ejection fraction. Atrial fibrillation with rapid ventricular response persisted, patient was given a dose of Cardizem at 15 mg, she was placed on a Cardizem drip. After this patient remained in atrial fibrillation however her rate improved into the 80s and 90s. Patient now denies any chest pain. CBC, chemistry generally unremarkable. CK, CK-MB, and troponin are slightly elevated, most likely related to the rapid heart rate, patient is no longer complaining of any discomfort, she tells me she was not actually having "pain", she states she just can feel the heart beating rapidly. Chest x-ray shows cardiomegaly with no overt failure. Discussed with Dr. Mckay, recommends admission to hospitalist now. Discussed with Dr. Stephenson, internal medicine, patient will be admitted to the [facility]. Patient states agreement with plan. - Vital Signs Vital signs: Temp Pulse Resp BP Pulse Ox 98.0 F 126 H 19 126/100 H 98 06/10/17 07:00 06/10/17 02:48 06/10/17 07:00 06/10/17 07:00 06/10/17 07:00 - Laboratory Result Diagrams: 06/10/17 03:15 06/10/17 03:15 Laboratory results interpreted by me: 06/10/17 06/10/17 06/10/17 03:15 03:15 03:15 RDW 14.2 H Potassium 3.4 L Est GFR ( Amer) 57 L Est GFR (Non-Af Amer) 47 L Glucose 124 H Total Bilirubin 2.2 H Direct Bilirubin 0.8 H AST 37 H Creatine Kinase 385 H CK-MB (CK-2) 9.98 H Urine Protein Urine Ketones Urine Blood 06/10/17 05:25 RDW Potassium Est GFR ( Amer) Est GFR (Non-Af Amer) Glucose Total Bilirubin Direct Bilirubin AST Creatine Kinase CK-MB (CK-2) Urine Protein 100 H Urine Ketones TRACE H Urine Blood LARGE H Discharge - Discharge Clinical Impression: Atrial fibrillation with rapid ventricular response, Non compliance w medication regimen Condition: Stable Disposition: ADMITTED INPATIENT Admitting Provider: Hospitalist Unit Admitted: [facility]
[2017-06-10 03:26] LABS: ABSOLUTE BASOPHILS # (AUTO) 0.1 10^3/uL (0.0-0.2); ABSOLUTE EOSINOPHILS # (AUTO) 0.1 10^3/uL (0.0-0.6); ABSOLUTE LYMPHOCYTES (AUTO) 0.9 10^3/uL (0.5-4.7); ABSOLUTE MONOCYTES (AUTO) 0.5 10^3/uL (0.1-1.4); BASOPHILS % (AUTO) 1.3 % (0-2); HEMOGLOBIN 13.5 g/dL (12.0-15.5); HGB HCT DIFFERENCE 0.5; LYMPHOCYTES % (AUTO) 16.6 % (13-45); MEAN CORPUSCULAR HEMOGLOBIN 32.8 pg (27.0-33.4); MEAN CORPUSCULAR HGB CONC 33.8 g/dL (32.0-36.0); MEAN CORPUSCULAR VOLUME 97 fl (80-97); MONOCYTES % (AUTO) 9.2 % (3-13); RED BLOOD COUNT 4.12 10^6/uL (3.72-5.28); RED CELL DISTRIBUTION WIDTH 14.2 % (11.5-14.0); SEGMENTED NEUTROPHILS % (AUTO) 71.9 % (42-78); WHITE BLOOD COUNT 5.5 10^3/uL (4.0-10.5)
[2017-06-10 03:34] LABS: PROTHROMBIN TIME 15.2 SEC (11.4-15.4)
[2017-06-10 03:40] LABS: ALANINE AMINOTRANSFERASE 16 U/L (9-52); ALBUMIN 4.5 g/dL (3.5-5.0); ALKALINE PHOSPHATASE 109 U/L (38-126); ANION GAP 14 (5-19); ASPARTATE AMINO TRANSFERASE 37 U/L (14-36); BILIRUBIN,DIRECT 0.8 mg/dL (0.0-0.4); BILIRUBIN,TOTAL 2.2 mg/dL (0.2-1.3); BLOOD UREA NITROGEN 17 mg/dL (7-20); CALCIUM 10.1 mg/dL (8.4-10.2); CARBON DIOXIDE 26 mmol/L (22-30); CHLORIDE 103 mmol/L (98-107); CREATINE KINASE 385 U/L (30-135); CREATININE RESULT 1.14 mg/dL (0.52-1.25); GLUCOSE 124 mg/dL (75-110); POTASSIUM 3.4 mmol/L (3.6-5.0); SODIUM 142.6 mmol/L (137-145); TOTAL PROTEIN 7.8 g/dL (6.3-8.2)
[2017-06-10 03:53] LABS: CREATINE KINASE MB 9.98 ng/mL (<4.55)
[2017-06-10 03:55] LABS: TROPONIN I 0.053 ng/mL
--- NOTE | 2017-06-10 04:01 | RADIOLOGY REPORT (SQ) ---
EXAM DESCRIPTION: CHEST SINGLE VIEW COMPLETED DATE/TIME: 06/10/2017 3:35 am REASON FOR STUDY: cp COMPARISON: Chest x-ray 12/27/2016. EXAM PARAMETERS: NUMBER OF VIEWS: One view. TECHNIQUE: Single frontal radiographic view of the chest acquired. RADIATION DOSE: NA LIMITATIONS: None. FINDINGS: LUNGS AND PLEURA: No consolidation, pneumothorax or pleural effusion. MEDIASTINUM AND HILAR STRUCTURES: No masses. Contour normal. HEART AND VASCULAR STRUCTURES: The heart remains enlarged. No overt vascular congestion. BONES: Healed right-sided rib fractures. HARDWARE: None in the chest. IMPRESSION: Cardiomegaly. Otherwise, no acute radiographic finding in the chest. TECHNICAL DOCUMENTATION: JOB ID: [id number]
[2017-06-10 05:48] LABS: APPEARANCE,URINE SLIGHTLY-CLOUDY; BILIRUBIN,URINE NEGATIVE (NEGATIVE); CALCIUM OXALATE CRYSTALS,URINE RARE /HPF; GLUCOSE, URINE NEGATIVE (NEGATIVE); KETONES,URINE TRACE mg/dL (NEGATIVE); LEUKOCYTE ESTERASE,URINE NEGATIVE (NEGATIVE); NITRITE,URINE NEGATIVE (NEGATIVE); PROTEIN,URINE 100 mg/dL (NEGATIVE); URINE SPECIFIC GRAVITY 1.012; UROBILINOGEN,URINE NEGATIVE mg/dL (<2.0)
[2017-06-10 05:54] LABS: URINE BARBITURATES SCREEN NEGATIVE; URINE METHADONE SCREEN NEGATIVE; URINE OPIATES LOW NEGATIVE
[2017-06-10] MEDS ORDERED: ENOXAPARIN SODIUM INJ 60 MG/0.6 ML DISP.SYRIN SUBCUT SCH ×2 (06:00)
[2017-06-10] MEDS ORDERED: LANSOPRAZOLE 30 MG TAB.RAP.DR PO SCH (06:00)
[2017-06-10 06:09] LABS: URINE PHENCYCLIDINE SCREEN NEGATIVE
--- NOTE | 2017-06-10 06:14 | PDOC H&P ---
History of Present Illness Patient complains of: Palpitations History of Present Illness: RENEE BONNER is a 71 year old female with a past medical history of congestive heart failure with severe tricuspid and moderate mitral regurgitation, atrial fibrillation and noncompliance who would been her usual state of health until approximately 6 hours prior to presentation developing palpitations and chest pain prompting her to seek evaluation emergency room where she was found to have uncontrolled A. fib in the 140s placed on IV Cardizem and currently pain- free. She is referred to the hospitalist for admission patient denies shortness of breath nausea vomiting or diaphoresis. Patient discontinued previous medications several months prior stating she does not have a doctor and does not intend to get one. She does understand the need for today's intervention and hospitalization. Patient denies taking any medications whatsoever. Past Medical History Cardiac Medical History: Reports: Atrial Fibrillation, Congestive Heart Failure , Hypertension Denies: DVT, Myocardial Infarction, Hyperlipidema, Pulmonary Embolism Pulmonary Medical History: Denies: Asthma, Chronic Obstructive Pulmonary Disease (COPD) Neurological Medical History: Denies: Seizures Endocrine Medical History: Denies: Diabetes Mellitus Type 1, Diabetes Mellitus Type 2, Hyperthyroidism, Hypothyroidism GI Medical History: Denies: Cirrhosis, Hepatitis Musculoskeltal Medical History: Reports: Arthritis - Probable arthritis. Chronic back pain. Psychiatric Medical History: Denies: Depression Social History Information Source: Patient, [facility] Records Lives with: Spouse/Significant other Smoking Status: Never Smoker Frequency of Alcohol Use: None Hx Recreational Drug Use: No Drugs: None Hx Prescription Drug Abuse: No - Advance Directive Resuscitation Status: Full Code Family History Family History: None - Reported, Other - Unknown to the patient Parental Family History Reviewed: Yes Children Family History Reviewed: Yes Sibling(s) Family History Reviewed.: Yes Medication/Allergy Home Medications: Apixaban [Eliquis 5 mg Tablet] 5 mg PO BID #60 tablet 12/29/16 Aspirin [Ecotrin 81 mg EC Tablet] 81 mg PO DAILY #30 tabec 12/29/16 Carvedilol [Coreg 6.25 mg Tablet] 6.25 mg PO Q12 #60 tablet 12/29/16 Digoxin [Lanoxin 0.125 mg Tablet] 0.125 mg PO DAILY #30 tablet 12/29/16 Lansoprazole [Prevacid 30 mg Odt Tablet] 30 mg PO Q6AM #30 tab. 12/29/16 Lisinopril [Prinivil 5 mg Tablet] 2.5 mg PO DAILY #30 tablet 12/29/16 Allergies/Adverse Reactions: Penicillins Allergy (Verified 06/10/17 02:43) Review of Systems Constitutional: PRESENT: weight loss - Unintentional 50 pound weight loss in the last 6 months per patient with early satiety.. ABSENT: chills, fatigue Eyes: ABSENT: visual disturbances Ears: ABSENT: hearing changes Cardiovascular: PRESENT: dyspnea on exertion. ABSENT: chest pain, edema, orthropnea, palpitations Respiratory: ABSENT: cough, hemoptysis Gastrointestinal: PRESENT: bloating. ABSENT: abdominal pain, constipation, diarrhea, hematemesis, hematochezia, nausea, vomiting Genitourinary: ABSENT: dysuria, hematuria Musculoskeletal: ABSENT: joint swelling Integumentary: ABSENT: rash, wounds Neurological: ABSENT: abnormal gait, abnormal speech, confusion, dizziness, focal weakness, syncope Psychiatric: ABSENT: anxiety, depression, homidical ideation, suicidal ideation Endocrine: ABSENT: cold intolerance, heat intolerance, polydipsia, polyuria Hematologic/Lymphatic: ABSENT: easy bleeding, easy bruising Physical Exam Vital Signs: Temp Pulse Resp BP Pulse Ox 97.7 F 126 H 25 H 136/97 H 91 L 06/10/17 02:45 06/10/17 02:48 06/10/17 04:01 06/10/17 04:01 06/10/17 04:01 Intake & Output 06/08/17 06/09/17 06/10/17 11:59 11:59 11:59 Weight 61.6 kg General appearance: PRESENT: no acute distress, well-developed, well-nourished Head exam: PRESENT: atraumatic, normocephalic Eye exam: PRESENT: conjunctiva pink, EOMI, PERRLA. ABSENT: scleral icterus Ear exam: PRESENT: normal external ear exam Mouth exam: PRESENT: moist, tongue midline Neck exam: ABSENT: carotid bruit, JVD, lymphadenopathy, thyromegaly Respiratory exam: PRESENT: clear to auscultation susan. ABSENT: rales, rhonchi, wheezes Cardiovascular exam: PRESENT: irregular rhythm, +S1, +S2, systolic murmur, tachycardia. ABSENT: diastolic murmur, rubs Pulses: PRESENT: normal dorsalis pedis pul Vascular exam: PRESENT: normal capillary refill GI/Abdominal exam: PRESENT: normal bowel sounds, soft. ABSENT: distended, guarding, mass, organolmegaly, rebound, tenderness Rectal exam: PRESENT: deferred Extremities exam: PRESENT: full ROM. ABSENT: calf tenderness, clubbing, pedal edema Neurological exam: PRESENT: alert, awake, oriented to person, oriented to place , oriented to time, oriented to situation, CN II-XII grossly intact. ABSENT: motor sensory deficit Psychiatric exam: PRESENT: appropriate affect, normal mood. ABSENT: homicidal ideation, suicidal ideation Skin exam: PRESENT: dry, intact, warm. ABSENT: cyanosis, rash Results Laboratory Results: 06/10/17 03:15 06/10/17 03:15 06/10/17 06/10/17 06/10/17 03:15 03:15 03:15 WBC 5.5 RBC 4.12 Hgb 13.5 Hct 40.0 MCV 97 MCH 32.8 MCHC 33.8 RDW 14.2 H Plt Count 162 Seg Neutrophils % 71.9 Lymphocytes % 16.6 Monocytes % 9.2 Eosinophils % 1.0 Basophils % 1.3 Absolute Neutrophils 4.0 Absolute Lymphocytes 0.9 Absolute Monocytes 0.5 Absolute Eosinophils 0.1 Absolute Basophils 0.1 Sodium 142.6 Potassium 3.4 L Chloride 103 Carbon Dioxide 26 Anion Gap 14 BUN 17 Creatinine 1.14 Est GFR ( Amer) 57 L Est GFR (Non-Af Amer) 47 L Glucose 124 H Calcium 10.1 Magnesium 1.6 Total Bilirubin 2.2 H AST 37 H ALT 16 Alkaline Phosphatase 109 Total Protein 7.8 Albumin 4.5 TSH Urine Color Urine Appearance Urine pH Ur Specific [place] Urine Protein Urine Glucose (UA) Urine Ketones Urine Blood Urine Nitrite Ur Leukocyte Esterase Urine WBC (Auto) Urine RBC (Auto) 06/10/17 06/10/17 03:15 05:25 WBC RBC Hgb Hct MCV MCH MCHC RDW Plt Count Seg Neutrophils % Lymphocytes % Monocytes % Eosinophils % Basophils % Absolute Neutrophils Absolute Lymphocytes Absolute Monocytes Absolute Eosinophils Absolute Basophils Sodium Potassium Chloride Carbon Dioxide Anion Gap BUN Creatinine Est GFR ( Amer) Est GFR (Non-Af Amer) Glucose Calcium Magnesium Total Bilirubin AST ALT Alkaline Phosphatase Total Protein Albumin TSH 0.76 Urine Color YELLOW Urine Appearance SLIGHTLY-CLOUDY Urine pH 5.0 Ur Specific [place] 1.012 Urine Protein 100 H Urine Glucose (UA) NEGATIVE Urine Ketones TRACE H Urine Blood LARGE H Urine Nitrite NEGATIVE Ur Leukocyte Esterase NEGATIVE Urine WBC (Auto) 3 Urine RBC (Auto) 77 06/10/17 06/10/17 03:15 03:15 Creatine Kinase 385 H CK-MB (CK-2) 9.98 H Troponin I 0.053 Impressions: Chest X-Ray 06/10/17 02:55 IMPRESSION: Cardiomegaly. Otherwise, no acute radiographic finding in the chest. Assessment & Plan - Diagnosis (1) Atrial fibrillation with rapid ventricular response Is this a current diagnosis for this admission?: YesPlan: Patient with RVR secondary to noncompliance with medication. Patient started on IV Cardizem previously controlled on Coreg 6.25 twice daily and digoxin 0.125 twice daily. Coreg resumed. Given her history of severe tricuspid and moderate mitral regurgitation she is placed on full dose Lovenox. Patient will undoubtedly require extensive education she is to long-term medication and lifestyle compliance. (2) Congestive heart failure Qualifiers: Congestive heart failure type: combined Congestive heart failure chronicity: acute on chronic Qualified Code(s): I50.43 - Acute on chronic combined systolic (congestive) and diastolic (congestive) heart failure Is this a current diagnosis for this admission?: YesPlan: Patient appears compensated resumption of Coreg and low-dose Altace consider diuretic. And education (3) Non compliance w medication regimen Is this a current diagnosis for this admission?: YesPlan: Education (4) Weight loss Is this a current diagnosis for this admission?: YesPlan: We will evaluate with TSH patient is unwilling to undergo any cancer screening. - Time Time Spent: 50 to 70 Minutes - Inpatient Certification Medical Necessity: Need Close Monitoring Due to Risk of Patient Decompensation
[2017-06-10] MEDS ORDERED: POTASSIUM CHLORIDE 10 MEQ TABLET.SA PO ONE (07:17)
--- NOTE | 2017-06-10 08:02 | EKG REPORT ---
SEVERITY:- ABNORMAL ECG - ATRIAL FIBRILLATION, V-RATE 61-[address]-T CHANGES : Confirmed by: Leon Alex MD 10-Jun-2017 08:01:28
--- NOTE | 2017-06-10 08:02 | EKG REPORT ---
SEVERITY:- ABNORMAL ECG - ATRIAL FIBRILLATION, V-RATE 85-140 PROBABLE LVH WITH SECONDARY REPOL ABNRM : Confirmed by: Leon Alex MD 10-Jun-2017 08:01:43
[2017-06-10 08:22] VITALS: BP 127/87
--- NOTE | 2017-06-10 09:58 | PDOC DISCHARGE SUMMARY ---
General - Admit/Disc Date/PCP Admission Date/Primary Care Provider: 06/10/17 05:58 Discharge Date: 06/10/17 - Against Medical Advice - Additional Information Resuscitation Status: Full Code History of Present Illness Patient complains of: Palpitations and shortness of breath History of Present Illness: RENEE BONNER is a 71 year old female with a past medical history of congestive heart failure with severe tricuspid and moderate mitral regurgitation, atrial fibrillation and noncompliance who would been her usual state of health until approximately 6 hours prior to presentation developing palpitations and chest pain prompting her to seek evaluation emergency room where she was found to have uncontrolled A. fib in the 140s placed on IV Cardizem and currently pain- free. She is referred to the hospitalist for admission patient denies shortness of breath nausea vomiting or diaphoresis. Patient discontinued previous medications several months prior stating she does not have a doctor and does not intend to get one. She does understand the need for today's intervention and hospitalization. Patient denies taking any medications whatsoever. Hospital Course Hospital Course: Patient was seen by Dr Stephenson and admitted for atrial fibrillation with RVR. She states she wants to go home. She has not been taking her heart medications and has no intentions of doing so in the future. She is oriented x 3. Her is at her bedside and states it is up to her. Explained her diagnosis , risk of stroke, acute heart failure and sudden . She verbalizes understanding and signed AMA form. Physical Exam Vital Signs: Temp Pulse Resp BP Pulse Ox 98.0 F 126 H 18 127/87 H 96 06/10/17 07:00 06/10/17 02:48 06/10/17 08:01 06/10/17 08:01 06/10/17 08:01 General appearance: PRESENT: no acute distress, well-developed, well-nourished Head exam: PRESENT: atraumatic, normocephalic Eye exam: PRESENT: conjunctiva pink, EOMI, PERRLA. ABSENT: scleral icterus Ear exam: PRESENT: normal external ear exam Mouth exam: PRESENT: moist, tongue midline Neck exam: ABSENT: carotid bruit, JVD, lymphadenopathy, thyromegaly Respiratory exam: PRESENT: clear to auscultation susan, symmetrical, unlabored Cardiovascular exam: PRESENT: irregular rhythm, +S1, +S2, systolic murmur - 3/6 mitral area Pulses: PRESENT: normal carotid pulses, normal radial pulses Vascular exam: PRESENT: normal capillary refill GI/Abdominal exam: PRESENT: normal bowel sounds, soft. ABSENT: distended, guarding, mass, organolmegaly, rebound, tenderness Rectal exam: PRESENT: deferred Extremities exam: PRESENT: full ROM. ABSENT: calf tenderness, clubbing, pedal edema Musculoskeletal exam: PRESENT: ambulatory Neurological exam: PRESENT: alert, awake, oriented to person, oriented to place , oriented to time, oriented to situation, CN II-XII grossly intact. ABSENT: motor sensory deficit Psychiatric exam: PRESENT: anxious Skin exam: PRESENT: dry, intact, warm. ABSENT: cyanosis, rash Results Impressions: Chest X-Ray 06/10/17 02:55 IMPRESSION: Cardiomegaly. Otherwise, no acute radiographic finding in the chest. Qualifiers P[place]INT BEING DISCHARGED WITH ANY OF THE FOLLOWING DIAGNOSIS?: No Plan Discharge Plan: Patient left against medical advice Time Spent: Less than 30 Minutes
[2017-06-10] MEDS ORDERED: CARVEDILOL 6.25 MG TABLET PO SCH (10:00)
[2017-06-10] MEDS ORDERED: RAMIPRIL 1.25 MG CAPSULE PO SCH (10:00)
[2017-06-10] MEDS ORDERED: ASPIRIN 81 MG TABLET, ENT COATED PO SCH ×2 (10:00)
[2017-06-10] MEDS ORDERED: DOCUSATE SODIUM 100 MG CAPSULE PO SCH (10:00)
[2017-06-10] MEDS ORDERED: DIGOXIN 0.125 MG TABLET PO SCH (10:00)
== END 2017-06-10 09:30 | disposition left against medical advice (07) | DRG 309 ==
LOC: ER 02:30 → EH 05:58 → UNDOADMIN 06:38
PROVIDERS: ADMIT Internal Medicine; ATTEND Internal Medicine
DX: I48.2 Chronic atrial fibrillation (principal); I50.42 Chronic combined systolic (congestive) and diastolic (congestive) heart failure; I11.0 Hypertensive heart disease with heart failure; G89.29 Other chronic pain; I08.1 Rheumatic disorders of both mitral and tricuspid valves; M19.90 Unspecified osteoarthritis, unspecified site; R63.4 Abnormal weight loss; Z91.19 Patient's noncompliance with other medical treatment and regimen; Z88.0 Allergy status to penicillin; Z79.02 Long term (current) use of antithrombotics/antiplatelets
CPT/HCPCS: 36415; 71010; 80053; 80307; 81001; 82550; 82553; 83735; 84443; 84484; 85025; 85610; 93005; 93010; 96365; 96366; 96376; 99285; J3490; J7030

== ENCOUNTER 2017-06-15 03:45 | Inpatient (IN) | payer MEDICARE ==
[2017-06-15] MEDS ORDERED: ASPIRIN 81 MG TABLET, CHEWABLE PO ONE (03:54)
--- NOTE | 2017-06-15 04:13 | ER Document Report ---
ED Cardiac - General Mode of Arrival: Wheelchair Information source: Patient, Relative - spouse TRAVEL OUTSIDE OF THE [place] IN LAST 30 DAYS: No - HPI Patient complains to provider of: Chest pain, Other - heart racing Similar symptoms previously: Yes Recently seen / treated by doctor: Yes - admit on 06/10/17 from the ED <AMAURY OCHOA - Last Filed: 06/15/17 04:39> <WES HAMILTON - Last Filed: 06/15/17 05:22> - General Chief Complaint: Chest Pain > 30 Stated Complaint: CHEST PAIN Time Seen by Provider: 06/15/17 04:07 - HPI Notes: Patient is a 71 year old female presenting to the emergency department for chest pain that was onset this evening around 17:30 after getting back from [facility]. Patient states she feels like her heart is racing intermittently. Patient states she has not been taking the medications prescribed by her last visit/admission on 06/10/17. Patient was seen at 3:30 am in the ED on 06/10/17 and admitted to the hospital for similar symptoms and complaints; patient signed out AMA on 06/10/17 around 9:45 am. Patient was also admitted to the hospital on and discharged on 12/29/16 for the same symptoms. Patient denies having a primary care physician. Patient is allergic to penicillin. (AMAURY OCHOA) - Related Data Allergies/Adverse Reactions: Penicillins Allergy (Verified 06/10/17 02:43) Past Medical History - General Information source: Patient - Social History Smoking Status: Never Smoker Cigarette use (# per day): No Chew tobacco use (# tins/day): No Smoking Education Provided: No Frequency of alcohol use: None Drug Abuse: None Family History: None - Reported Patient has suicidal ideation: No Patient has homicidal ideation: No - Past Medical History Cardiac Medical History: Reports: Hx Atrial Fibrillation, Hx Congestive Heart Failure, Hx Hypertension, Other - cardiomegaly Musculoskeltal Medical History: Reports Hx Arthritis - Probable arthritis. Chronic back pain. Surgical Hx: Negative <AMAURY OCHOA - Last Filed: 06/15/17 04:39> Review of Systems - Review of Systems Constitutional: No symptoms reported EENT: No symptoms reported Cardiovascular: See HPI, Chest pain, Heart racing Respiratory: No symptoms reported Gastrointestinal: No symptoms reported Genitourinary: No symptoms reported Female Genitourinary: No symptoms reported Musculoskeletal: No symptoms reported Skin: No symptoms reported Hematologic/Lymphatic: No symptoms reported Neurological/Psychological: No symptoms reported -: Yes All other systems reviewed and negative <AMAURY OCHOA - Last Filed: 06/15/17 04:39> Physical Exam - Vital signs Interpretation: Hypertensive, Tachycardic <AMAURY OCHOA - Last Filed: 06/15/17 04:39> <WES HAMILTON - Last Filed: 06/15/17 05:22> - Vital signs Vitals: Resp 16 06/15/17 04:02 Notes: Vitals: 06/15/17 4:11 Heartrate: 145 Blood Pressure: 149/110 Pulse Ox: 100 o2 Respiratory Rate: 23 (AMAURY OCHOA) - Notes Notes: GENERAL: Alert, interacts well, moderate distress. HEAD: Normocephalic, atraumatic. EYES: Appear normal. Pupils equal, round, and reactive to light. ENT: Moist mucus membranes, tongue midline. NECK: Full range of motion. Supple. Trachea midline. LUNGS: Clear to auscultation bilaterally, no wheezes, rales, or rhonchi. No respiratory distress. HEART: Tachycardia. Irregular irregularly. No murmurs, gallops, or rubs. ABDOMEN: Soft, non-tender. Non-distended. Normal bowel sounds. EXTREMITIES: Moves all 4 extremities spontaneously. Normal strength. Trace edema to the lower extremities bilaterally. NEUROLOGICAL: Alert and oriented x3. Normal speech. No focal neurological deficits. GSC 15. PSYCH: Normal affect, normal mood. SKIN: Warm, dry, normal turgor. No rashes or lesions noted. (AMAURY OCHOA) Course - Laboratory Result Diagrams: 06/15/17 04:11 06/15/17 04:11 <AMAURY OCHOA - Last Filed: 06/15/17 04:39> - Laboratory Result Diagrams: 06/15/17 04:11 06/15/17 04:11 - EKG Interpretation by Ms EKG shows normal: Camp, Intervals, QRS Complexes, ST-T Waves Rate: Tachycardia - 140 Rhythm: A.Fib Voltage: Consistant with LVH When compared to previous EKG there are: No significant change - Consults Dr. Banegas Time consulted: 05:20 Consulted provider: will come to ER - 23 hour observation to [facility] <WES HAMILTON - Last Filed: 06/15/17 05:22> - Vital Signs Vital signs: Temp Pulse Resp BP Pulse Ox 82.9 F L 91 32 H 135/96 H 98 06/15/17 04:46 06/15/17 04:46 06/15/17 05:01 06/15/17 05:01 06/15/17 05:01 - Laboratory Laboratory results interpreted by me: 06/15/17 06/15/17 06/15/17 04:11 04:11 04:11 RDW 14.3 H Potassium 3.5 L BUN 21 H Est GFR (Non-Af Amer) 49 L Glucose 120 H Calcium 10.4 H Total Bilirubin 1.6 H Direct Bilirubin 0.6 H AST 40 H Creatine Kinase 471 H CK-MB (CK-2) 10.20 H Digoxin < 0.40 L Discharge <AMAURY OCHOA - Last Filed: 06/15/17 04:39> - Discharge Admitting Provider: Hospitalist Unit Admitted: [facility] <WES HAMILTON - Last Filed: 06/15/17 05:22> - Discharge Clinical Impression: Atrial fibrillation with rapid ventricular response, Noncompliance with medication regimen Condition: Stable Disposition: ADMITTED OBSERVATION Scribe Attestation: 06/15/17 05:11 I personally performed the services described in the documentation, reviewed and edited the documentation which was dictated to the scribe in my presence, and it accurately records my words and actions. (WES HAMILTON) Scribe Documentation - Scribe Written by Sharadibthania:: Julia Bush 06/15/17 4:37 acting as scribe for :: Lucila <AMAURY OCHOA - Last Filed: 06/15/17 04:39>
[2017-06-15] MEDS ORDERED: DILTIAZEM HCL INJ 25 MG/5 ML VIAL IV ONE (04:16)
[2017-06-15] MEDS ORDERED: DIGOXIN 0.25 MG TABLET PO ONE (04:17)
[2017-06-15] MEDS ORDERED: DILTIAZEM HCL/D5W 125 ML IV PRN ×2 (04:17→06:18)
[2017-06-15 04:20] LABS: ABSOLUTE BASOPHILS # (AUTO) 0.1 10^3/uL (0.0-0.2); ABSOLUTE EOSINOPHILS # (AUTO) 0.1 10^3/uL (0.0-0.6); ABSOLUTE LYMPHOCYTES (AUTO) 1.2 10^3/uL (0.5-4.7); ABSOLUTE MONOCYTES (AUTO) 0.6 10^3/uL (0.1-1.4); BASOPHILS % (AUTO) 1.2 % (0-2); HEMATOCRIT 40.4 % (36.0-47.0); HEMOGLOBIN 13.5 g/dL (12.0-15.5); HGB HCT DIFFERENCE 0.1; LYMPHOCYTES % (AUTO) 19.8 % (13-45); MEAN CORPUSCULAR HEMOGLOBIN 32.4 pg (27.0-33.4); MEAN CORPUSCULAR HGB CONC 33.4 g/dL (32.0-36.0); MEAN CORPUSCULAR VOLUME 97 fl (80-97); MONOCYTES % (AUTO) 10.3 % (3-13); RED BLOOD COUNT 4.16 10^6/uL (3.72-5.28); RED CELL DISTRIBUTION WIDTH 14.3 % (11.5-14.0); SEGMENTED NEUTROPHILS % (AUTO) 66.7 % (42-78); WHITE BLOOD COUNT 5.9 10^3/uL (4.0-10.5)
[2017-06-15] MEDS ORDERED: ENOXAPARIN SODIUM INJ 60 MG/0.6 ML DISP.SYRIN SUBCUT ONE (04:20)
[2017-06-15 04:28] LABS: PROTHROMBIN TIME 15.3 SEC (11.4-15.4)
--- NOTE | 2017-06-15 04:32 | RADIOLOGY REPORT (SQ) ---
EXAM DESCRIPTION: CHEST SINGLE VIEW COMPLETED DATE/TIME: 06/15/2017 4:19 am REASON FOR STUDY: palpitations COMPARISON: None. EXAM PARAMETERS: NUMBER OF VIEWS: One view. TECHNIQUE: Single frontal radiographic view of the chest acquired. RADIATION DOSE: NA LIMITATIONS: None. FINDINGS: LUNGS AND PLEURA: No opacities, masses or pneumothorax. No pleural effusion. MEDIASTINUM AND HILAR STRUCTURES: No masses. Contour normal. HEART AND VASCULAR STRUCTURES: Moderate cardiac enlargement, stable. BONES: Right 7th and 8th the post true lateral rib deformity, chronic. HARDWARE: None in the chest. OTHER: No other significant finding. IMPRESSION: No acute cardiopulmonary findings. Moderate cardiac enlargement, stable. TECHNICAL DOCUMENTATION: JOB ID: [id number]
[2017-06-15 04:38] LABS: ALANINE AMINOTRANSFERASE 21 U/L (9-52); ALBUMIN 4.7 g/dL (3.5-5.0); ALKALINE PHOSPHATASE 100 U/L (38-126); ANION GAP 12 (5-19); ASPARTATE AMINO TRANSFERASE 40 U/L (14-36); BILIRUBIN,DIRECT 0.6 mg/dL (0.0-0.4); BILIRUBIN,TOTAL 1.6 mg/dL (0.2-1.3); BLOOD UREA NITROGEN 21 mg/dL (7-20); CALCIUM 10.4 mg/dL (8.4-10.2); CARBON DIOXIDE 26 mmol/L (22-30); CHLORIDE 102 mmol/L (98-107); CREATINE KINASE 471 U/L (30-135); GLUCOSE 120 mg/dL (75-110); POTASSIUM 3.5 mmol/L (3.6-5.0); SODIUM 140.4 mmol/L (137-145); TOTAL PROTEIN 7.8 g/dL (6.3-8.2)
[2017-06-15 04:39] LABS: DIGOXIN < 0.40 ng/mL (0.8-2.0)
[2017-06-15 04:47] LABS: CREATINE KINASE MB 10.2 ng/mL (<4.55)
[2017-06-15 04:49] LABS: TROPONIN I 0.061 ng/mL
--- NOTE | 2017-06-15 05:59 | RADIOLOGY REPORT (SQ) ---
EXAM DESCRIPTION: CHEST SINGLE VIEW COMPLETED DATE/TIME: 06/15/2017 5:36 am REASON FOR STUDY: AF-RVR COMPARISON: 06/15/2017. EXAM PARAMETERS: NUMBER OF VIEWS: One view. TECHNIQUE: Single frontal radiographic view of the chest acquired. RADIATION DOSE: NA LIMITATIONS: None. FINDINGS: LUNGS AND PLEURA: Mild chronic interstitial markings. MEDIASTINUM AND HILAR STRUCTURES: No masses. Contour normal. HEART AND VASCULAR STRUCTURES: Moderate enlargement of the cardiac silhouette. BONES: Small deformity of posterolateral right mid thoracic ribs, stable. HARDWARE: None in the chest. OTHER: No other significant finding. IMPRESSION: No significant interval change. TECHNICAL DOCUMENTATION: JOB ID: [id number]
[2017-06-15] MEDS ORDERED: PROMETHAZINE HCL 25 MG TABLET PO PRN (06:26)
[2017-06-15] MEDS ORDERED: ACETAMINOPHEN 325 MG TABLET PO PRN (06:26)
[2017-06-15] MEDS ORDERED: POTASSIUM CHLORIDE 20 MEQ/15 ML UDCUP PO SCH (06:30)
[2017-06-15 06:33] LABS: ADD ON TESTING BLD IN LAB ACKNOWLEDGE
[2017-06-15 06:49] LABS: MAGNESIUM 1.9 mg/dL (1.6-2.3)
--- NOTE | 2017-06-15 06:50 | PDOC H&P ---
History of Present Illness Admission Date/PCP: 06/15/17 05:52 None Patient complains of: Chest pain, rapid heart rate History of Present Illness: RENEE BONNER is a 71 year old female, with a several year history of atrial fibrillation, chronic noncompliance with medications and instructions, along with chronic underlying back pain, who presents to the emergency room for evaluation of above complaints. Patient has been discussed with emergency room physician who evaluated the patient. Patient has a rather odd affect, and seems to have poor insight at best into acute and chronic medical problems. is present at her side with her approval. Old inpatient records are reviewed. Approximately 5:30 PM the evening of the , after getting back from [facility], patient began experiencing pressure-like substernal discomfort, without radiation, along with intermittent "racing" of her heart. Some associated nausea but no vomiting. No fever or chills, diarrhea or dysuria. No abdominal pain. Was noted to be in atrial fibrillation with rapid ventricular response upon presentation to the emergency room. Rate is now well controlled on a Cardizem drip, having received both parenteral digoxin, along with Cardizem bolus. No chest discomfort at present. Was hospitalized on our service basically only for a few hours on the of this month with complaints of palpitations and shortness of breath. Was noted to be in atrial fibrillation with rapid ventricular response and was started on Cardizem drip. She left AGAINST MEDICAL ADVICE after only a few hours. Discharge summary has been reviewed. Was admitted to our service September 09 of last year for chest pain and rapid heart rate, noted to be in atrial fibrillation with rapid ventricular response. History and physical has been reviewed. . Dictation via voice recognition software. Laboratory results are listed in [employer] and are reviewed. X-ray summary results are listed below, with full report(s) reviewed. . EKG reviewed and compared to a tracing from the sixth of this month.. Social history/personal habits: . 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 No use of alcohol tobacco or illicit drugs. Allergies/adverse reactions are listed in [employer] and are reviewed. Home medications none REVIEW OF SYSTEMS: Constitutional: No fever or chills. Eyes: Wears glasses. ENT: No swallowing problems or complaints. Denies hearing loss. Pulmonary: No current complaints. Cardiovascular: See history and present illness. Gastrointestinal: See history and present illness. Skin: Chronic problems with dry skin. Hematologic: Easy bruising. Neurologic: No current complaints, including numbness or tingling. Musculoskeletal: Joint pain from arthritis. Psychiatric: Denies anxiety or depression. Endocrine: No current complaints, including polyuria. Genitourinary: No current complaints, including dysuria. PHYSICAL EXAMINATION: 5 feet 6 inches tall. 82.9 kg. BMI 29.5 kg/m. Blood pressure 133/92. Pulse 99 and slightly irregular. 98% saturation on room air. Respirations are 26 and unlabored. Temperature not recorded on chart; skin feels normothermic. Thin otherwise well-developed female appearing approximately her stated age. Pleasant awake alert and cooperative. Somewhat anxious. Rather talkative at times. is present at her side; patient approves. Female emergency room nurse Kari is present. Skin is warm and dry. No grossly obvious evidence of rash in areas of skin examined. No subcutaneous nodules palpated. ENT: Hearing grossly normal to normal conversation. Tongue midline on protrusion pink and slightly tacky. Eyes: No scleral icterus. Pupils equal and reactive to light at 4 mm. Braxton conjunctivae. Neck is supple and nontender to gentle active range of motion and palpation. Midline trachea. No palpable thyroid nodule mass enlargement or tenderness. Lymphatic: No palpable cervical or clavicular nodes. Neck and lymphatic exams limited by patient body habitus. Psychiatric: At best poor insight into acute and chronic medical issues. Rather odd affect at times. Lungs: Auscultation reveals clear and equal breath sounds bilaterally. No use of accessory respiratory muscles. Cardiovascular: Heart irregular rate and rhythm, without gallop murmur or rub. No carotid or abdominal aortic bruits. No ankle edema. Abdomen:soft slightly distended nontender with positive bowel sounds. Unable to adequately evaluate abdomen for masses or organomegaly due to distention. Extremities: Feet are warm and dry. No calf tenderness to compression. No grossly obvious visual evidence of calf swelling. Gentle manipulation of lower extremities fails to reveal any obvious evidence of injury or instability to knees hips or ankles. Neurologic: Moves upper extremities grossly normally. Patellar reflexes absent. Dorsiflexion and plantarflexion of feet 5 / 5 and symmetric. Past Medical History Past Medical History: Portion of information from History and Physical Exam, 09/09/16. Cardiac Medical History: Reports: Atrial Fibrillation, Congestive Heart Failure , Hypertension Denies: DVT, Myocardial Infarction, Hyperlipidema, Pulmonary Embolism Pulmonary Medical History: Denies: Asthma, Chronic Obstructive Pulmonary Disease (COPD) EENT Medical History: Reports: Eyes - glasses Denies: Ears, Throat Neurological Medical History: Denies: Hemorrhagic CVA, Ischemic CVA, Seizures Endocrine Medical History: Denies: Diabetes Mellitus Type 1, Diabetes Mellitus Type 2, Hyperthyroidism, Hypothyroidism GI Medical History: Reports: Other - chronic intermittent nausea Denies: Cirrhosis, Hepatitis Musculoskeltal Medical History: Reports: Arthritis, Other - Chronic back pain. Skin Medical History: Reports: Other - chronic dry skin Psychiatric Medical History: Denies: Alcohol Dependency, Depression, General Anxiety Disorder, Substance Abuse, Tobacco Dependency Hematology: Reports: Other - easy bruising Infectious Medical History: Denies: Hepatitis B, Hepatitis C Past Surgical History Past Surgical History: Reports: None Social History Information Source: Patient, Emergency Med Personnel, [facility] Records Lives with: Spouse/Significant other Smoking Status: Unknown if Ever Smoked Frequency of Alcohol Use: None Hx Recreational Drug Use: No Drugs: None Hx Prescription Drug Abuse: No - Advance Directive Resuscitation Status: Full Code Surrogate healthcare decision maker:: Family History Family History: None - Reported Parental Family History Reviewed: Yes - Uncertain cause of parents deaths. Children Family History Reviewed: Yes - Healthy Sibling(s) Family History Reviewed.: Yes - Uncertain; patient reportedly estranged from siblings. Medication/Allergy Home Medications: No Home Medications 06/15/17 Allergies/Adverse Reactions: Penicillins Allergy (Verified 06/10/17 02:43) Physical Exam Vital Signs: Temp Pulse Resp BP Pulse Ox 82.9 F L 91 21 H 133/92 H 98 06/15/17 04:46 06/15/17 04:46 06/15/17 05:46 06/15/17 05:46 06/15/17 05:46 Results Impressions: Chest X-Ray 06/15/17 05:21 IMPRESSION: No significant interval change. Assessment & Plan - Diagnosis (1) Atrial fibrillation with RVR Is this a current diagnosis for this admission?: YesPlan: Continue Cardizem drip. Wean from same. I have strongly encouraged patient not to get out of bed without notifying staff , to avoid a fall with injury. Knee high SCDs for DVT prophylaxis, along with subcutaneous heparin. Patient has received a 60 mg subcu dose of Lovenox from the emergency room physician. Impression and plans were discussed with patient and , both of whom concur. Time spent in evaluation and management of patient: 68 minutes. (2) Chest pain Qualifiers: Chest pain type: unspecified Qualified Code(s): R07.9 - Chest pain, unspecified Is this a current diagnosis for this admission?: YesPlan: Now resolved. Likely simply due to her rapid ventricular rate. Serial troponins. (3) Elevated troponin Is this a current diagnosis for this admission?: Yes (4) Hypokalemia Is this a current diagnosis for this admission?: YesPlan: Potassium replacement. (5) Non compliance w medication regimen Is this a current diagnosis for this admission?: YesPlan: With patient's poor insight, suspect this will be a significant problem from now on. (6) CKD (chronic kidney disease), stage III Is this a current diagnosis for this admission?: Yes (7) Elevated LFTs Is this a current diagnosis for this admission?: Yes
[2017-06-15] MEDS: ASPIRIN 81 MG TABLET, ENT COATED PO SCH (10:01)
[2017-06-15] MEDS: DOCUSATE SODIUM 100 MG CAPSULE PO SCH ×2 (10:02→17:53)
[2017-06-15] MEDS ORDERED: POTASSIUM CHLORIDE 20 MEQ/50 ML RTU IV SCH (11:00)
[2017-06-15] MEDS: POTASSIUM CHLORIDE 20 MEQ/15 ML UDCUP PO SCH ×2 (11:15→13:53)
--- NOTE | 2017-06-15 11:29 | PDOC PROGRESS REPORT ---
Subjective Progress Note for:: 06/15/17 Subjective:: Patient is seen on morning rounds. She is resting in bed. She denies any shortness of breath or dyspnea. She denies any further chest pain . She is now agreeable to taking oral medications that she was refusing. She is oriented x 3 but has poor insight into her health and appropriate decision making. Her is not presently at the bedside. She verbalizes no complaints at the present time. Physical Exam Vital Signs: Temp Pulse Resp BP Pulse Ox 97.4 F 106 H 18 134/68 H 96 06/15/17 07:58 06/15/17 07:58 06/15/17 07:58 06/15/17 09:46 06/15/17 09:17 Intake & Output 06/14/17 06/15/17 06/16/17 06:59 06:59 06:59 Weight 57.7 kg General appearance: PRESENT: no acute distress, thin Head exam: PRESENT: atraumatic, normocephalic Eye exam: PRESENT: conjunctiva pink, EOMI, PERRLA. ABSENT: scleral icterus Ear exam: PRESENT: normal external ear exam Mouth exam: PRESENT: moist, tongue midline Neck exam: ABSENT: carotid bruit, JVD, lymphadenopathy, thyromegaly Respiratory exam: PRESENT: clear to auscultation susan. ABSENT: rales, rhonchi, wheezes Cardiovascular exam: PRESENT: irregular rhythm, RRR, +S1, +S2, systolic murmur - 3/6 at the mitral area. ABSENT: diastolic murmur, rubs Pulses: PRESENT: normal dorsalis pedis pul Vascular exam: PRESENT: normal capillary refill GI/Abdominal exam: PRESENT: normal bowel sounds, soft. ABSENT: distended, guarding, mass, organolmegaly, rebound, tenderness Rectal exam: PRESENT: deferred Extremities exam: PRESENT: full ROM. ABSENT: calf tenderness, clubbing, pedal edema Neurological exam: PRESENT: alert, awake, oriented to person, oriented to place , oriented to time, CN II-XII grossly intact. ABSENT: motor sensory deficit Psychiatric exam: PRESENT: flat affect, unusual affect Skin exam: PRESENT: dry, intact, warm. ABSENT: cyanosis, rash Results Impressions: Chest X-Ray 06/15/17 05:21 IMPRESSION: No significant interval change. Assessment & Plan - Diagnosis (1) Atrial fibrillation with RVR Is this a current diagnosis for this admission?: YesPlan: Rate controlled on IV cardiazem. Will transition to oral and d/c drip. Patient at the present time is agreeable to taking medications. (2) Chest pain Qualifiers: Chest pain type: unspecified Qualified Code(s): R07.9 - Chest pain, unspecified Is this a current diagnosis for this admission?: YesPlan: Serial troponins pending (3) Hypokalemia Is this a current diagnosis for this admission?: YesPlan: Repleted and will monitor (4) Non compliance w medication regimen Is this a current diagnosis for this admission?: YesPlan: Patient presented with same symptoms 2 weeks ago and left AMA. She was refusing to take her oral medications. Today she is agreeable to take her medications. (5) Cardiomyopathy Qualifiers: Cardiomyopathy type: unspecified Qualified Code(s): I42.9 - Cardiomyopathy, unspecified Is this a current diagnosis for this admission?: Yes (6) Hypertension Qualifiers: Hypertension type: essential hypertension Qualified Code(s): I10 - Essential (primary) hypertension Is this a current diagnosis for this admission?: YesPlan: Continue current medications (7) Mitral regurgitation Qualifiers: Cardiac valve disease etiology: etiology unspecified Qualified Code( s): I34.0 - Nonrheumatic mitral (valve) insufficiency Is this a current diagnosis for this admission?: Yes (8) Tricuspid regurgitation Qualifiers: Cardiac valve disease etiology: etiology unspecified Qualified Code( s): I07.1 - Rheumatic tricuspid insufficiency Is this a current diagnosis for this admission?: Yes (9) CKD (chronic kidney disease), stage III Is this a current diagnosis for this admission?: YesPlan: Avoid nephrotoxic medications and dosages - Time Time Spent with patient: 25-34 minutes Critical Time spent with patient: 15-24 minutes Medications reviewed and adjusted accordingly: Yes Anticipated discharge: Home
--- NOTE | 2017-06-15 12:49 | EKG REPORT ---
SEVERITY:- ABNORMAL ECG - ATRIAL FIBRILLATION, V-RATE 97-203 MULTIPLE PREMATURE COMPLEXES, VENTRICULAR PROBABLE LVH WITH SECONDARY REPOL ABNRM : Confirmed by: Timothy Guerrier 15-Jun-2017 12:47:40
[2017-06-15] MEDS: DILTIAZEM HCL 60 MG TABLET PO SCH ×2 (13:53→22:30)
[2017-06-15 17:51] LABS: APPEARANCE,URINE SLIGHTLY-CLOUDY; BILIRUBIN,URINE NEGATIVE (NEGATIVE); GLUCOSE, URINE NEGATIVE (NEGATIVE); KETONES,URINE NEGATIVE (NEGATIVE); LEUKOCYTE ESTERASE,URINE NEGATIVE (NEGATIVE); NITRITE,URINE NEGATIVE (NEGATIVE); PROTEIN,URINE NEGATIVE (NEGATIVE); UROBILINOGEN,URINE NEGATIVE mg/dL (<2.0)
[2017-06-16] MEDS: DILTIAZEM HCL 60 MG TABLET PO SCH (05:21)
[2017-06-16 06:29] LABS: ANION GAP 12 (5-19); BLOOD UREA NITROGEN 16 mg/dL (7-20); CALCIUM 10.6 mg/dL (8.4-10.2); CARBON DIOXIDE 26 mmol/L (22-30); CHLORIDE 102 mmol/L (98-107); GLUCOSE 106 mg/dL (75-110); POTASSIUM 3.7 mmol/L (3.6-5.0)
--- NOTE | 2017-06-16 08:38 | PDOC DISCHARGE SUMMARY ---
General - Admit/Disc Date/PCP Admission Date/Primary Care Provider: 06/15/17 15:30 Discharge Date: 06/16/17 - Discharge Diagnosis (1) Atrial fibrillation with RVR Is this a current diagnosis for this admission?: YesSummary: Now rate controlled. Will place patient on beta brooks/ARB due to systolic congestive heart failure with EF of 40%. Patient has history of being noncompliant with medications and follow up care. It has been reinforced to her multiple times the need for her to take her medications. (2) Chest pain Is this a current diagnosis for this admission?: YesSummary: Ruled out for acute coronary syndrome, most likely related to tachycardia and palpitations (3) Hypokalemia Is this a current diagnosis for this admission?: YesSummary: Repleted (4) Non compliance w medication regimen Is this a current diagnosis for this admission?: YesSummary: As #1. Will have home health follow up if patient allows (5) Cardiomyopathy Is this a current diagnosis for this admission?: YesSummary: EF of 40-45%. Severe tricuspid regurgitation and mitral regurgitation (6) Hypertension Is this a current diagnosis for this admission?: YesSummary: Continue current medications (7) Mitral regurgitation Is this a current diagnosis for this admission?: YesSummary: Cardiology follow up (8) Tricuspid regurgitation Is this a current diagnosis for this admission?: YesSummary: Cardiology follow up (9) CKD (chronic kidney disease), stage III Is this a current diagnosis for this admission?: Yes - Additional Information Resuscitation Status: Full Code Home Medications: Acetaminophen [Tylenol 325 mg Tablet] 650 mg PO Q8HP PRN tablet 06/16/17 Apixaban [Eliquis 5 mg Tablet] 5 mg PO BID #60 tablet 06/16/17 Aspirin [Ecotrin 81 mg EC Tablet] 81 mg PO DAILY tabec 06/16/17 Metoprolol Succinate [Toprol Xl 50 mg Tab.sr] 50 mg PO DAILY #30 tab.sr.24h 10/21 Valsartan [Diovan 80 mg Tablet] 80 mg PO DAILY #30 tablet 06/16/17 History of Present Illness Patient complains of: Palpitations, shortness of breath and chest pain History of Present Illness: RENEE BONNER is a 71 year old female, with a several year history of atrial fibrillation, chronic noncompliance with medications and instructions, along with chronic underlying back pain, who presents to the emergency room for evaluation of above complaints. Patient has been discussed with emergency room physician who evaluated the patient. Patient has a rather odd affect, and seems to have poor insight at best into acute and chronic medical problems. is present at her side with her approval. Old inpatient records are reviewed. Approximately 5:30 PM the evening of the , after getting back from [facility], patient began experiencing pressure-like substernal discomfort, without radiation, along with intermittent "racing" of her heart. Some associated nausea but no vomiting. No fever or chills, diarrhea or dysuria. No abdominal pain. Was noted to be in atrial fibrillation with rapid ventricular response upon presentation to the emergency room. Rate is now well controlled on a Cardizem drip, having received both parenteral digoxin, along with Cardizem bolus. No chest discomfort at present. Hospital Course Hospital Course: Patient was admitted to [facility] on telemetry. She was started on po cardiazem and cardiazem infusion was weaned off. She continued in atrial fibrillation with a controlled ventricular response. Serial troponins were done which were all negative. All her symptoms dissipated once her heart rate was controlled. She was later transitioned to a beta brooks and ARB due to her history of systolic congestive heart failure. She has a history of noncompliance in follow up and taking medications. She was counseled. She was agreeable to home health nursing follow up post discharge. Physical Exam Vital Signs: Temp Pulse Resp BP Pulse Ox 97.2 F 87 20 140/83 H 94 06/16/17 07:42 06/16/17 07:42 06/16/17 07:42 06/16/17 07:42 06/16/17 07:42 Intake & Output 06/15/17 06/16/17 06/17/17 06:59 06:59 06:59 Intake Total 459 Output Total 725 Balance -266 Weight 61.3 kg General appearance: PRESENT: no acute distress, thin, well-developed, well- nourished Head exam: PRESENT: atraumatic, normocephalic Eye exam: PRESENT: conjunctiva pink, EOMI, PERRLA. ABSENT: scleral icterus Ear exam: PRESENT: normal external ear exam Mouth exam: PRESENT: moist, tongue midline Neck exam: ABSENT: carotid bruit, JVD, lymphadenopathy, thyromegaly Respiratory exam: PRESENT: clear to auscultation susan. ABSENT: rales, rhonchi, wheezes Cardiovascular exam: PRESENT: RRR. ABSENT: diastolic murmur, rubs, systolic murmur Pulses: PRESENT: normal dorsalis pedis pul Vascular exam: PRESENT: normal capillary refill GI/Abdominal exam: PRESENT: ascites Rectal exam: PRESENT: deferred Extremities exam: PRESENT: full ROM. ABSENT: calf tenderness, clubbing, pedal edema Neurological exam: PRESENT: alert, awake, oriented to person, oriented to place , oriented to time, oriented to situation, CN II-XII grossly intact. ABSENT: motor sensory deficit Psychiatric exam: PRESENT: flat affect Skin exam: PRESENT: dry, intact, warm. ABSENT: cyanosis, rash Results Laboratory Results: 06/16/17 05:38 06/15/17 06/16/17 17:30 05:38 Sodium 140.0 Potassium 3.7 Chloride 102 Carbon Dioxide 26 Anion Gap 12 BUN 16 Creatinine 0.90 Est GFR ( Amer) > 60 Est GFR (Non-Af Amer) > 60 Glucose 106 Calcium 10.6 H Urine Color YELLOW Urine Appearance SLIGHTLY-CLOUDY Urine pH 6.0 Ur Specific [place] 1.010 Urine Protein NEGATIVE Urine Glucose (UA) NEGATIVE Urine Ketones NEGATIVE Urine Blood LARGE H Urine Nitrite NEGATIVE Ur Leukocyte Esterase NEGATIVE Urine RBC (Auto) 29 06/15/17 16:00 Troponin I 0.048 Impressions: Chest X-Ray 06/15/17 05:21 IMPRESSION: No significant interval change. Qualifiers PATEINT BEING DISCHARGED WITH ANY OF THE FOLLOWING DIAGNOSIS?: No Plan Discharge Plan: Home with home health Time Spent: Less than 30 Minutes
[2017-06-16] MEDS: ASPIRIN 81 MG TABLET, ENT COATED PO SCH (09:39)
[2017-06-16] MEDS: DOCUSATE SODIUM 100 MG CAPSULE PO SCH (09:48)
[2017-06-16] MEDS ORDERED: HEPARIN SOD (PORCINE) 5,000 UNIT/ML 1 ML SYRINGE SUBCUT SCH (10:00)
[2017-06-16] MEDS ORDERED: DILTIAZEM HCL 240 MG CAPSULE.CR PO SCH (10:00)
[2017-06-16] MEDS ORDERED: VALSARTAN 80 MG TABLET PO SCH (10:00)
[2017-06-16] MEDS ORDERED: METOPROLOL SUCCINATE 50 MG TAB.SR.24H PO SCH (10:00)
[2017-06-16] MEDS ORDERED: APIXABAN 5 MG TABLET PO SCH (10:00)
[2017-06-16 10:13] VITALS: BP 115/64
== END 2017-06-16 10:38 | disposition home health service (06) | DRG 309 ==
LOC: ER 03:45 → UNDOADMOB 05:52 → EH 05:52 → 3W 07:50 → OBSVTOIN 15:30
PROVIDERS: ADMIT Family Medicine; ATTEND Family Medicine
DX: I48.91 Unspecified atrial fibrillation (principal); I13.0 Hypertensive heart and chronic kidney disease with heart failure and stage 1 through stage 4 chronic kidney disease, or unspecified chronic kidney disease; I50.20 Unspecified systolic (congestive) heart failure; N18.3 Chronic kidney disease, stage 3 (moderate); E87.6 Hypokalemia; I08.1 Rheumatic disorders of both mitral and tricuspid valves; M46.96 Unspecified inflammatory spondylopathy, lumbar region; I42.9 Cardiomyopathy, unspecified; Z91.14 Patient's other noncompliance with medication regimen; Z79.899 Other long term (current) drug therapy; Z88.0 Allergy status to penicillin
CPT/HCPCS: 36415; 71010; 80048; 80053; 80162; 81001; 82550; 82553; 83735; 84484; 85025; 85610; 93005; 93010; 96365; 96366; 99285; J1650; J3490

== ENCOUNTER 2017-06-19 17:25 | Inpatient (IN) | payer MEDICARE ==
--- NOTE | 2017-06-19 17:36 | ER Document Report ---
ED Medical Screen (RME) - General Stated Complaint: ANXIETY Time Seen by Provider: 06/19/17 17:35 Mode of Arrival: Wheelchair Information source: Patient Notes: 71-year-old female presents with concerns of anxiety chest pain stating that she cannot talk Difficult to understand patient's presentation I have greeted and performed a rapid initial assessment of this patient. A comprehensive ED assessment and evaluation of the patient, analysis of test results and completion of the medical decision making process will be conducted by additional ED providers. PHYSICAL EXAMINATION: GENERAL: Well-appearing, well-nourished and in no acute distress. HEAD: Atraumatic, normocephalic. EYES: Pupils equal round extraocular movements intact, conjunctiva are normal. ENT: Nares patent NECK: Normal range of motion LUNGS: No respiratory distress Musculoskeletal: Normal range of motion NEUROLOGICAL: Normal speech, normal gait. PSYCH: anxious SKIN: Warm, Dry, normal turgor, no rashes or lesions noted. TRAVEL OUTSIDE OF THE [place] IN LAST 30 DAYS: No - Related Data Allergies/Adverse Reactions: Penicillins Allergy (Verified 06/10/17 02:43) Past Medical History - Past Medical History Cardiac Medical History: Reports: Hx Atrial Fibrillation, Hx Congestive Heart Failure, Hx Hypertension Denies: Hx DVT, Hx Heart Attack, Hx Hypercholesterolemia, Hx Pulmonary Embolism Pulmonary Medical History: Denies: Hx Asthma, Hx COPD Neurological Medical History: Denies: Hx Seizures Endocrine Medical History: Denies: Hx Diabetes Mellitus Type 1, Hx Diabetes Mellitus Type 2, Hx Hyperthyroidism, Hx Hypothyroidism Renal/ Medical History: Denies: Hx Peritoneal Dialysis GI Medical History: Denies: Hx Cirrhosis, Hx Hepatitis Musculoskeltal Medical History: Reports Hx Arthritis Psychiatric Medical History: Denies: Hx Depression Infectious Medical History: Denies: Hx Hepatitis
[2017-06-19 18:38] LABS: ABSOLUTE BASOPHILS # (AUTO) 0.1 10^3/uL (0.0-0.2); ABSOLUTE EOSINOPHILS # (AUTO) 0.2 10^3/uL (0.0-0.6); ABSOLUTE LYMPHOCYTES (AUTO) 1.6 10^3/uL (0.5-4.7); ABSOLUTE MONOCYTES (AUTO) 0.7 10^3/uL (0.1-1.4); ABSOLUTE NEUT (AUTO) 4.1 10^3/uL (1.7-8.2); BASOPHILS % (AUTO) 1.2 % (0-2); EOSINOPHILS % (AUTO) 2.3 % (0-6); HEMATOCRIT 40.5 % (36.0-47.0); HEMOGLOBIN 13.6 g/dL (12.0-15.5); HGB HCT DIFFERENCE 0.3; LYMPHOCYTES % (AUTO) 23.9 % (13-45); MEAN CORPUSCULAR HEMOGLOBIN 32.4 pg (27.0-33.4); MEAN CORPUSCULAR HGB CONC 33.5 g/dL (32.0-36.0); MEAN CORPUSCULAR VOLUME 97 fl (80-97); MONOCYTES % (AUTO) 11.1 % (3-13); RED BLOOD COUNT 4.18 10^6/uL (3.72-5.28); RED CELL DISTRIBUTION WIDTH 14.4 % (11.5-14.0); SEGMENTED NEUTROPHILS % (AUTO) 61.5 % (42-78); WHITE BLOOD COUNT 6.6 10^3/uL (4.0-10.5)
[2017-06-19 18:48] LABS: ALANINE AMINOTRANSFERASE 21 U/L (9-52); ALBUMIN 4.5 g/dL (3.5-5.0); ALKALINE PHOSPHATASE 101 U/L (38-126); ANION GAP 11 (5-19); ASPARTATE AMINO TRANSFERASE 30 U/L (14-36); BILIRUBIN,DIRECT 0.7 mg/dL (0.0-0.4); BLOOD UREA NITROGEN 30 mg/dL (7-20); CALCIUM 10.2 mg/dL (8.4-10.2); CARBON DIOXIDE 27 mmol/L (22-30); CHLORIDE 105 mmol/L (98-107); CREATINE KINASE 166 U/L (30-135); CREATININE RESULT 1.11 mg/dL (0.52-1.25); GLUCOSE 112 mg/dL (75-110); POTASSIUM 3.9 mmol/L (3.6-5.0); SODIUM 143.1 mmol/L (137-145); TOTAL PROTEIN 7.5 g/dL (6.3-8.2)
[2017-06-19 18:50] LABS: URINE BARBITURATES SCREEN NEGATIVE; URINE METHADONE SCREEN NEGATIVE; URINE OPIATES LOW NEGATIVE; URINE PHENCYCLIDINE SCREEN NEGATIVE
[2017-06-19] MEDS ORDERED: LORAZEPAM 1 MG TABLET PO ONE (19:01)
[2017-06-19 19:04] LABS: CREATINE KINASE MB 3.42 ng/mL (<4.55); TROPONIN I 0.031 ng/mL
[2017-06-19] MEDS ORDERED: HALOPERIDOL 2 MG TABLET PO ONE (19:58)
[2017-06-19] MEDS ORDERED: NORMAL SALINE 1000 ML 1,000 ML IV ONE (20:01)
--- NOTE | 2017-06-19 20:06 | ER Document Report ---
ED General - General Chief Complaint: Anxiety Stated Complaint: ANXIETY Time Seen by Provider: 06/19/17 17:35 Mode of Arrival: Wheelchair Cannot obtain history due to: Mentally challenged, Uncooperative Notes: Patient is a 71-year-old female with past medical history of A. fib requiring chronic anti-coagulation on a history of noncompliance with her medications who presents today planning apparently of palpitations. Patient is an extremely difficult historian, very pressured speech, unable to appropriately answer my questions. She presents in a fashion consistent with acute gisell preventing appropriate history taking. Her at the bedside is likewise a very poor historian. He relates that the patient apparently called him from [facility] stating that she did not feel well and needed to come to the hospital. Patient admits that upon being discharged from the hospital she did not fill any of her medications and is not currently taking any medications although she is unable to explain to me why she is not taking her medicines. TRAVEL OUTSIDE OF THE [place] IN LAST 30 DAYS: No - Related Data Allergies/Adverse Reactions: Penicillins Allergy (Verified 06/19/17 19:11) Past Medical History - General Information source: Patient Cannot obtain history due to: Mentally challenged, Uncooperative - Social History Smoking Status: Current Every Day Smoker Lives with: Spouse/Significant other Family History: Reviewed & Not Pertinent Patient has suicidal ideation: No Patient has homicidal ideation: No - Past Medical History Cardiac Medical History: Reports: Hx Atrial Fibrillation, Hx Congestive Heart Failure, Hx Hypertension Denies: Hx DVT, Hx Heart Attack, Hx Hypercholesterolemia, Hx Pulmonary Embolism Pulmonary Medical History: Denies: Hx Asthma, Hx COPD Neurological Medical History: Denies: Hx Seizures Endocrine Medical History: Denies: Hx Diabetes Mellitus Type 1, Hx Diabetes Mellitus Type 2, Hx Hyperthyroidism, Hx Hypothyroidism Renal/ Medical History: Denies: Hx Peritoneal Dialysis GI Medical History: Denies: Hx Cirrhosis, Hx Hepatitis Musculoskeltal Medical History: Reports Hx Arthritis Psychiatric Medical History: Denies: Hx Depression Infectious Medical History: Denies: Hx Hepatitis Review of Systems - Review of Systems -: Yes ROS unobtainable due to patient's medical condition Physical Exam - Vital signs Vitals: Temp Pulse Resp BP Pulse Ox 97.5 F 109 H 26 H 125/95 H 100 06/19/17 17:36 06/19/17 17:36 06/19/17 17:36 06/19/17 17:36 06/19/17 17:36 Interpretation: Tachycardic, Tachypneic Notes: PHYSICAL EXAMINATION: GENERAL: Appears older than stated age, somewhat cachectic, pressured speech HEAD: Atraumatic, normocephalic. EYES: Pupils equal round and reactive to light, extraocular movements intact, sclera anicteric, conjunctiva are normal. ENT: nares patent, oropharynx clear without exudates. Dry mucous membranes. NECK: Normal range of motion, supple without lymphadenopathy LUNGS: Breath sounds clear to auscultation bilaterally and equal. No wheezes rales or rhonchi. HEART: Irregularly irregular tachycardia without murmurs ABDOMEN: Soft, nontender, normoactive bowel sounds. No guarding, no rebound. No masses appreciated. EXTREMITIES: Normal range of motion, no pitting or edema. No cyanosis. NEUROLOGICAL: No focal neurological deficits. Moves all extremities spontaneously and on command. PSYCH: Presents consistent with acute gisell. Pressured speech, tangential thought process, unable to appropriately receive verbal communication SKIN: Warm, Dry, normal turgor, no rashes or lesions noted. Course - Re-evaluation Re-evalutation: 06/19/17 20:03 Patient presents in acute atrial fibrillation with rapid ventricular response again secondary to noncompliance with her medications. Heart rate is between 130 and 150 at time of my assessment. Patient is extremely difficult to understand as she has very pressured speech and has a presentation consistent with acute gisell. Review of prior records shows that patient is frequently noted to have an unusual affect and pressured speech but no prior hospitalizations have included psychiatric assessment of this patient. I spent over 30 minutes at the patient's bedside on initial encounter, and she was unable to relate anything that I sent back to her almost immediately after me saying it to her. For example, when I introduced myself to the patient on 3 separate occasions she could not tell me neither my first or last name when asked. Patient is not on any psychiatric medications. Patient clearly relates to me that immediately upon being discharged she did not fill any of her medications and has not been taking any the medications that were prescribed since time of discharge. This would explain her presentation of A. fib with rapid ventricular response. I do not believe that patient will ever be able to fully comprehend that she needs to take these medications until her underlying psychiatric issues addressed. She will be started on a diltiazem infusion, given IV fluids and will be reassessed. I have also consulted psychiatry and will initiate a small dose of haloperidol here in the emergency department. She will require frequent reassessments. 06/19/17 22:10 Patient is much more calm, cooperative after receiving 2 mg of IM haloperidol as she refused to take oral medications. Patient does not have capacity to refuse these medications that she has no capacity to explain to me why she is here in the emergency department what the treatments we are offering are, why she would refuse these medications, and what would be the results of continued noncompliance with her medical treatments. She does not have capacity to be released at this time. Her rate has now normalized on the diltiazem drip at 5 mg/h at a rate of 89. She is also much more appropriate in conversation at this time. I have discussed this case with Dr. Stephenson the hospitalist who agrees to admit the patient and have relayed the psychiatric concerns for this patient and her ability to comply with the treatment regimen. - Vital Signs Vital signs: Temp Pulse Resp BP Pulse Ox 97.5 F 60 20 144/90 H 98 06/19/17 17:38 06/20/17 03:15 06/20/17 03:15 06/20/17 03:15 06/20/17 03:15 - Laboratory Result Diagrams: 06/19/17 18:20 06/19/17 18:20 Laboratory results interpreted by me: 06/19/17 06/19/17 06/19/17 18:20 18:20 18:20 RDW 14.4 H BUN 30 H Est GFR ( Amer) 59 L Est GFR (Non-Af Amer) 49 L Glucose 112 H Direct Bilirubin 0.7 H Creatine Kinase 166 H TSH 0.43 L - EKG Interpretation by Me Additional EKG results interpreted by me: 06/20/17 03:38 A. fib with rapid ventricular response. Rate 112. No ST elevations or depressions. QTC is 459. Critical Care Note - Critical Care Note Total time excluding time spent on procedures (mins): 37 Comments: Critical care time spent obtaining history from patient or surrogate, discussions with consultants, development of treatment plan with patient or surrogate, evaluation of patient's response to treatment, examination of patient , ordering and performing treatments and interventions, ordering and review of laboratory studies, re-evaluation of patient's condition, ordering and review of radiographic studies and review of old charts Discharge - Discharge Clinical Impression: Atrial fibrillation with RVR, Gisell Condition: Fair Disposition: ADMITTED INPATIENT [facility] Admitted: Telemetry
[2017-06-19] MEDS ORDERED: HALOPERIDOL LACTATE INJ 5 MG/1 ML VIAL ONE ×2 (21:00→21:06)
[2017-06-19] MEDS: DILTIAZEM HCL/D5W 125 ML IV PRN ×2 (21:30→22:00)
[2017-06-19] MEDS ORDERED: LITHIUM CARBONATE 300 MG CAPSULE PO ONE (22:45)
[2017-06-19] MEDS ORDERED: MIRTAZAPINE 15 MG TABLET PO ONE (22:45)
[2017-06-19 23:03] LABS: FREE T3 2.88 pg/mL (2.77-5.27)
[2017-06-20] MEDS ORDERED: DIAZEPAM INJ 10 MG/2 ML DISP.SYRIN IV PRN (00:05)
[2017-06-20] MEDS ORDERED: DILTIAZEM HCL/D5W 125 ML IV PRN (00:08)
[2017-06-20] MEDS ORDERED: ACETAMINOPHEN 325 MG TABLET PO PRN (00:09)
[2017-06-20] MEDS: ACETAMINOPHEN 325 MG TABLET PO PRN ×3 (00:50→05:15)
--- NOTE | 2017-06-20 03:23 | PDOC H&P ---
History of Present Illness Admission Date/PCP: 06/19/17 22:12 Patient complains of: Palpitations History of Present Illness: RENEE BONNER is a 71 year old female with a past medical history of atrial fibrillation and chronic noncompliance who presents to the emergency room with several hours of palpitations and found to have acute gisell. Psychiatric history is unclear she is an extraordinarily poor historian and unable to provide accurate history. Recent hospitalization for A. fib with RVR was challenging as she stated she will not take medications nor will she seek follow -up care. In the emergency room she is found to be acutely manic and received Haldol by ER provider. At the time she is interviewed she is sedated and unable to cooperate with history or physical. Past Medical History Cardiac Medical History: Reports: Atrial Fibrillation, Congestive Heart Failure , Hypertension Denies: DVT, Myocardial Infarction, Hyperlipidema, Pulmonary Embolism Pulmonary Medical History: Denies: Asthma, Chronic Obstructive Pulmonary Disease (COPD) Neurological Medical History: Denies: Seizures Endocrine Medical History: Denies: Diabetes Mellitus Type 1, Diabetes Mellitus Type 2, Hyperthyroidism, Hypothyroidism GI Medical History: Denies: Cirrhosis, Hepatitis Musculoskeltal Medical History: Reports: Arthritis Psychiatric Medical History: Denies: Alcohol Dependency, Depression Social History Information Source: [facility] Records Lives with: Spouse/Significant other Smoking Status: Never Smoker Frequency of Alcohol Use: None Hx Recreational Drug Use: No Drugs: None Hx Prescription Drug Abuse: No - Advance Directive Resuscitation Status: Full Code Family History Family History: Hypertension Parental Family History Reviewed: Yes - Unobtainable Children Family History Reviewed: Yes - Unobtainable Sibling(s) Family History Reviewed.: Yes - Unobtainable Medication/Allergy Home Medications: Acetaminophen [Tylenol 325 mg Tablet] 650 mg PO Q8HP PRN tablet 06/16/17 Apixaban [Eliquis 5 mg Tablet] 5 mg PO BID #60 tablet 06/16/17 Aspirin [Ecotrin 81 mg EC Tablet] 81 mg PO DAILY tabec 06/16/17 Metoprolol Succinate [Toprol Xl 50 mg Tab.sr] 50 mg PO DAILY #30 tab.sr.24h 10/21 Valsartan [Diovan 80 mg Tablet] 80 mg PO DAILY #30 tablet 06/16/17 Allergies/Adverse Reactions: Penicillins Allergy (Verified 06/19/17 19:11) Review of Systems ROS unobtainable: Due to mental status - Unobtainable Constitutional: ABSENT: chills, fever(s), headache(s), weight gain, weight loss Eyes: ABSENT: visual disturbances Ears: ABSENT: hearing changes Cardiovascular: ABSENT: chest pain, dyspnea on exertion, edema, orthropnea, palpitations Respiratory: ABSENT: cough, hemoptysis Gastrointestinal: ABSENT: abdominal pain, constipation, diarrhea, hematemesis, hematochezia, nausea, vomiting Genitourinary: ABSENT: dysuria, hematuria Musculoskeletal: ABSENT: joint swelling Integumentary: ABSENT: rash, wounds Neurological: ABSENT: abnormal gait, abnormal speech, confusion, dizziness, focal weakness, syncope Psychiatric: ABSENT: anxiety, depression, homidical ideation, suicidal ideation Endocrine: ABSENT: cold intolerance, heat intolerance, polydipsia, polyuria Hematologic/Lymphatic: ABSENT: easy bleeding, easy bruising Physical Exam Vital Signs: Temp Pulse Resp BP Pulse Ox 97.5 F 109 H 26 H 125/95 H 100 06/19/17 17:36 06/19/17 17:36 06/19/17 17:36 06/19/17 17:36 06/19/17 17:36 General appearance: PRESENT: disheveled, mild distress, thin Head exam: PRESENT: atraumatic, normocephalic Eye exam: PRESENT: conjunctiva pink, EOMI, PERRLA. ABSENT: scleral icterus Ear exam: PRESENT: normal external ear exam Mouth exam: PRESENT: moist, tongue midline Neck exam: ABSENT: carotid bruit, JVD, lymphadenopathy, thyromegaly Respiratory exam: PRESENT: clear to auscultation susan. ABSENT: rales, rhonchi, wheezes Cardiovascular exam: PRESENT: irregular rhythm, +S1, +S2, tachycardia Pulses: PRESENT: normal dorsalis pedis pul Vascular exam: PRESENT: normal capillary refill GI/Abdominal exam: PRESENT: normal bowel sounds, soft. ABSENT: distended, guarding, mass, organolmegaly, rebound, tenderness Rectal exam: PRESENT: deferred Extremities exam: PRESENT: full ROM. ABSENT: calf tenderness, clubbing, pedal edema Neurological exam: PRESENT: alert, altered, awake, oriented to person, CN II- XII grossly intact. ABSENT: motor sensory deficit Psychiatric exam: PRESENT: agitated, anxious, unusual affect Skin exam: PRESENT: dry, intact, warm. ABSENT: cyanosis, rash Assessment & Plan - Diagnosis (1) Atrial fibrillation with RVR Is this a current diagnosis for this admission?: YesPlan: Admission to a monitored bed IV Cardizem resumption of Lopressor and Eliquis. Education (2) Gisell Is this a current diagnosis for this admission?: YesPlan: Abilify and lithium initiated psychiatry consult pending. Avoiding typical antipsychotics secondary to borderline prolonged QT interval. (3) Non compliance w medication regimen Is this a current diagnosis for this admission?: YesPlan: Likely secondary to uncontrolled bipolar disorder, initiating Abilify and lithium with education - Time Time Spent: 50 to 70 Minutes - Inpatient Certification Medical Necessity: Need Close Monitoring Due to Risk of Patient Decompensation
[2017-06-20] MEDS ORDERED: DILTIAZEM HCL/D5W 125 MG/125 ML RTUINJ IV PRN (03:34)
[2017-06-20] MEDS: NORMAL SALINE 1000 ML 1,000 ML IV SCH ×2 (03:55→11:25)
[2017-06-20] MEDS ORDERED: ARIPIPRAZOLE 5 MG TABLET ONE (04:04)
[2017-06-20] MEDS: LITHIUM CARBONATE 300 MG CAPSULE PO SCH ×3 (04:04→22:13)
[2017-06-20] MEDS: ARIPIPRAZOLE 5 MG TABLET PO SCH (04:05)
[2017-06-20] MEDS ORDERED: HEPARIN SOD (PORCINE) 5,000 UNIT/ML 1 ML SYRINGE SUBCUT SCH (06:00)
--- NOTE | 2017-06-20 08:12 | EKG REPORT ---
SEVERITY:- ABNORMAL ECG - ATRIAL FIBRILLATION, V-RATE 77-149 ABNRM R PROG, CONSIDER ASMI OR LEAD PLACEMENT NONSPECIFIC T ABNORMALITIES, LATERAL LEADS : Confirmed by: Leon Alex MD 20-Jun-2017 08:11:09
[2017-06-20 09:50] LABS: ABSOLUTE EOSINOPHILS # (AUTO) 0.1 10^3/uL (0.0-0.6); ABSOLUTE LYMPHOCYTES (AUTO) 0.9 10^3/uL (0.5-4.7); ABSOLUTE MONOCYTES (AUTO) 0.5 10^3/uL (0.1-1.4); ABSOLUTE NEUT (AUTO) 3.6 10^3/uL (1.7-8.2); BASOPHILS % (AUTO) 0.9 % (0-2); EOSINOPHILS % (AUTO) 2.4 % (0-6); HEMATOCRIT 38.6 % (36.0-47.0); HGB HCT DIFFERENCE 0.4; LYMPHOCYTES % (AUTO) 17.2 % (13-45); MEAN CORPUSCULAR HEMOGLOBIN 32.6 pg (27.0-33.4); MEAN CORPUSCULAR HGB CONC 33.6 g/dL (32.0-36.0); MEAN CORPUSCULAR VOLUME 97 fl (80-97); MONOCYTES % (AUTO) 10.1 % (3-13); RED BLOOD COUNT 3.98 10^6/uL (3.72-5.28); RED CELL DISTRIBUTION WIDTH 14.5 % (11.5-14.0); SEGMENTED NEUTROPHILS % (AUTO) 69.4 % (42-78); WHITE BLOOD COUNT 5.1 10^3/uL (4.0-10.5)
[2017-06-20] MEDS ORDERED: TRAMADOL HCL 50 MG TABLET PO PRN (10:10)
[2017-06-20 10:13] LABS: ANION GAP 11 (5-19); BLOOD UREA NITROGEN 22 mg/dL (7-20); CALCIUM 9.6 mg/dL (8.4-10.2); CARBON DIOXIDE 24 mmol/L (22-30); CHLORIDE 107 mmol/L (98-107); CREATININE RESULT 0.82 mg/dL (0.52-1.25); GLUCOSE 109 mg/dL (75-110); POTASSIUM 3.8 mmol/L (3.6-5.0); SODIUM 141.8 mmol/L (137-145)
[2017-06-20] MEDS: METOPROLOL SUCCINATE 50 MG TAB.SR.24H PO SCH (11:18)
[2017-06-20] MEDS: ASPIRIN 81 MG TABLET, ENT COATED PO SCH (11:18)
[2017-06-20] MEDS: APIXABAN 5 MG TABLET PO SCH ×2 (11:18→17:30)
--- NOTE | 2017-06-20 12:26 | PDOC PROGRESS REPORT ---
Subjective Progress Note for:: 06/20/17 Subjective:: complains of back pain Physical Exam Vital Signs: Temp Pulse Resp BP Pulse Ox 97.5 F 55 L 20 115/65 100 06/20/17 07:33 06/20/17 11:00 06/20/17 07:33 06/20/17 11:00 06/20/17 07:33 Intake & Output 06/19/17 06/20/17 06/21/17 06:59 06:59 06:59 Intake Total 760 Balance 760 General appearance: PRESENT: no acute distress Eye exam: PRESENT: conjunctiva pink. ABSENT: scleral icterus Mouth exam: PRESENT: moist, tongue midline Neck exam: ABSENT: JVD Respiratory exam: PRESENT: clear to auscultation susan. ABSENT: rales, rhonchi, wheezes Cardiovascular exam: PRESENT: RRR. ABSENT: diastolic murmur, rubs, systolic murmur GI/Abdominal exam: PRESENT: normal bowel sounds, soft. ABSENT: distended, guarding, mass, organolmegaly, rebound, tenderness Extremities exam: ABSENT: calf tenderness, clubbing, pedal edema Neurological exam: PRESENT: alert, awake, oriented to person, oriented to place , oriented to time, oriented to situation, CN II-XII grossly intact. ABSENT: motor sensory deficit Psychiatric exam: PRESENT: appropriate affect Skin exam: PRESENT: dry, intact, warm. ABSENT: cyanosis, rash Results Laboratory Results: 06/20/17 09:35 06/20/17 09:35 06/20/17 06/20/17 09:35 09:35 WBC 5.1 RBC 3.98 Hgb 13.0 Hct 38.6 MCV 97 MCH 32.6 MCHC 33.6 RDW 14.5 H Plt Count 145 L Seg Neutrophils % 69.4 Lymphocytes % 17.2 Monocytes % 10.1 Eosinophils % 2.4 Basophils % 0.9 Absolute Neutrophils 3.6 Absolute Lymphocytes 0.9 Absolute Monocytes 0.5 Absolute Eosinophils 0.1 Absolute Basophils 0.0 Sodium 141.8 Potassium 3.8 Chloride 107 Carbon Dioxide 24 Anion Gap 11 BUN 22 H Creatinine 0.82 Est GFR ( Amer) > 60 Est GFR (Non-Af Amer) > 60 Glucose 109 Calcium 9.6 Assessment & Plan - Diagnosis (1) Atrial fibrillation with RVR Is this a current diagnosis for this admission?: Yes Plan: Rate controlled with cardizem drip. will try to wean off today. (2) Gisell Is this a current diagnosis for this admission?: Yes Plan: continue with as needed medications (3) Chronic back pain Qualifiers: Back pain location: low back pain Back pain laterality: unspecified Sciatica presence: without sciatica Qualified Code(s): M54.5 - Low back pain Is this a current diagnosis for this admission?: Yes Plan: Will give tramadol as needed (4) Hypertension Qualifiers: Hypertension type: essential hypertension Qualified Code(s): I10 - Essential (primary) hypertension Is this a current diagnosis for this admission?: Yes (5) CKD (chronic kidney disease), stage III Is this a current diagnosis for this admission?: Yes - Time Time Spent with patient: 25-34 minutes - Inpatient Certification Medical Necessity: Need Close Monitoring Due to Risk of Patient Decompensation
[2017-06-21] MEDS: LITHIUM CARBONATE 300 MG CAPSULE PO SCH (04:54)
[2017-06-21 05:17] VITALS: BP 145/105
[2017-06-21 05:22] LABS: ABSOLUTE EOSINOPHILS # (AUTO) 0.2 10^3/uL (0.0-0.6); ABSOLUTE LYMPHOCYTES (AUTO) 0.9 10^3/uL (0.5-4.7); ABSOLUTE MONOCYTES (AUTO) 0.4 10^3/uL (0.1-1.4); BASOPHILS % (AUTO) 0.9 % (0-2); EOSINOPHILS % (AUTO) 4.5 % (0-6); HEMATOCRIT 38.8 % (36.0-47.0); HEMOGLOBIN 13.2 g/dL (12.0-15.5); HGB HCT DIFFERENCE 0.8; LYMPHOCYTES % (AUTO) 20.3 % (13-45); MEAN CORPUSCULAR HEMOGLOBIN 32.8 pg (27.0-33.4); MEAN CORPUSCULAR HGB CONC 33.9 g/dL (32.0-36.0); MEAN CORPUSCULAR VOLUME 97 fl (80-97); MONOCYTES % (AUTO) 9.7 % (3-13); RED BLOOD COUNT 4.01 10^6/uL (3.72-5.28); RED CELL DISTRIBUTION WIDTH 14.5 % (11.5-14.0); SEGMENTED NEUTROPHILS % (AUTO) 64.6 % (42-78); WHITE BLOOD COUNT 4.7 10^3/uL (4.0-10.5)
[2017-06-21 05:38] LABS: ANION GAP 9 (5-19); BLOOD UREA NITROGEN 19 mg/dL (7-20); CALCIUM 10.2 mg/dL (8.4-10.2); CARBON DIOXIDE 25 mmol/L (22-30); CHLORIDE 109 mmol/L (98-107); CREATININE RESULT 0.85 mg/dL (0.52-1.25); GLUCOSE 93 mg/dL (75-110); POTASSIUM 4.3 mmol/L (3.6-5.0); SODIUM 142.8 mmol/L (137-145)
[2017-06-21] MEDS: APIXABAN 5 MG TABLET PO SCH (10:20)
[2017-06-21] MEDS: ARIPIPRAZOLE 5 MG TABLET PO SCH (10:20)
[2017-06-21] MEDS: ASPIRIN 81 MG TABLET, ENT COATED PO SCH (10:21)
[2017-06-21] MEDS: METOPROLOL SUCCINATE 50 MG TAB.SR.24H PO SCH (10:21)
--- NOTE | 2017-06-21 14:50 | PDOC DISCHARGE SUMMARY ---
General - Admit/Disc Date/PCP Admission Date/Primary Care Provider: 06/19/17 22:12 Discharge Date: 06/21/17 - Discharge Diagnosis (1) Atrial fibrillation with RVR Is this a current diagnosis for this admission?: Yes (2) Gisell Is this a current diagnosis for this admission?: Yes (3) Chronic back pain Is this a current diagnosis for this admission?: Yes (4) Hypertension Is this a current diagnosis for this admission?: Yes (5) CKD (chronic kidney disease), stage III Is this a current diagnosis for this admission?: Yes - Additional Information Resuscitation Status: Full Code Discharge Diet: Cardiac Discharge Activity: Activity As Tolerated Home Medications: Aspirin [Aspirin EC] 81 mg PO DAILY 06/20/17 Apixaban [Eliquis 5 mg Tablet] 5 mg PO BID #60 tablet 06/21/17 Aripiprazole [Abilify 5 mg Tablet] 10 mg PO DAILY #30 tablet 06/21/17 Metoprolol Succinate [Toprol Xl 50 mg Tab.sr] 50 mg PO DAILY #30 tab.sr.24h History of Present Illness History of Present Illness: RENEE BONNER is a 71 year old female who has a history of atrial fibrillation but has been noncompliant in the past presented with palpitations and was found to have H fibrillation with a rapid ventricular rate. Patient was recently hospitalized and when she went home then, stated that she would not take her medications. Patient does have some manic type symptoms. Hospital Course Hospital Course: 71-year-old female who presented with H fibrillation with a rapid ventricular rate. Patient was started on a diltiazem drip and her heart rate was decreased. Patient was eventually taken off diltiazem drip and treated with oral beta-blockers. Her heart rate remained under good control. The patient also was noted to be manic and was started on an antipsychotic as well as lithium. The patient in the past has been noncompliant with her medications and because of this I am hesitant to give her lithium which will need routine follow-up blood levels to be a safe medication. Because of that we will just be discharging her on an antipsychotic in addition to her usual beta blockers. Patient at the time of my interview was not manic and was alert and oriented and cooperative and stated she would take her medications however. Physical Exam Vital Signs: Temp Pulse Resp BP Pulse Ox 97.4 F 77 16 145/105 H 97 06/21/17 10:50 06/21/17 10:50 06/21/17 10:50 06/21/17 03:52 06/21/17 10:50 Intake & Output 06/20/17 06/21/17 06/22/17 06:59 06:59 06:59 Intake Total 760 2104 Output Total 1225 Balance 760 879 Weight 63.1 kg General appearance: PRESENT: no acute distress Eye exam: PRESENT: conjunctiva pink. ABSENT: scleral icterus Mouth exam: PRESENT: moist, tongue midline Neck exam: ABSENT: JVD Respiratory exam: PRESENT: clear to auscultation susan. ABSENT: rales, rhonchi, wheezes Cardiovascular exam: PRESENT: RRR. ABSENT: diastolic murmur, rubs, systolic murmur GI/Abdominal exam: PRESENT: normal bowel sounds, soft. ABSENT: distended, guarding, mass, organolmegaly, rebound, tenderness Extremities exam: ABSENT: calf tenderness, clubbing, pedal edema Neurological exam: PRESENT: alert, awake, oriented to person, oriented to place , oriented to time, oriented to situation, CN II-XII grossly intact. ABSENT: motor sensory deficit Psychiatric exam: PRESENT: appropriate affect Skin exam: PRESENT: dry, intact, warm. ABSENT: cyanosis, rash Results Laboratory Results: 06/21/17 04:34 06/21/17 04:34 06/21/17 06/21/17 04:34 04:34 WBC 4.7 RBC 4.01 Hgb 13.2 Hct 38.8 MCV 97 MCH 32.8 MCHC 33.9 RDW 14.5 H Plt Count 136 L Seg Neutrophils % 64.6 Lymphocytes % 20.3 Monocytes % 9.7 Eosinophils % 4.5 Basophils % 0.9 Absolute Neutrophils 3.0 Absolute Lymphocytes 0.9 Absolute Monocytes 0.4 Absolute Eosinophils 0.2 Absolute Basophils 0.0 Sodium 142.8 Potassium 4.3 Chloride 109 H Carbon Dioxide 25 Anion Gap 9 BUN 19 Creatinine 0.85 Est GFR ( Amer) > 60 Est GFR (Non-Af Amer) > 60 Glucose 93 Calcium 10.2 Qualifiers PATEINT BEING DISCHARGED WITH ANY OF THE FOLLOWING DIAGNOSIS?: No Plan Discharge Plan: Patient is discharged home in stable condition. She will follow-up with her primary care doctor in 1-2 weeks. Time Spent: Greater than 30 Minutes
== END 2017-06-21 11:47 | disposition home or self-care (01) | DRG 309 ==
LOC: ER 17:25 → EH 22:12 → 3W 06-20 03:00
PROVIDERS: ADMIT Internal Medicine; ATTEND Internal Medicine
DX: I48.91 Unspecified atrial fibrillation (principal); I13.0 Hypertensive heart and chronic kidney disease with heart failure and stage 1 through stage 4 chronic kidney disease, or unspecified chronic kidney disease; F30.9 Manic episode, unspecified; F31.9 Bipolar disorder, unspecified; G89.29 Other chronic pain; M54.5 Low back pain; N18.3 Chronic kidney disease, stage 3 (moderate); I50.9 Heart failure, unspecified; M19.90 Unspecified osteoarthritis, unspecified site; I45.81 Long QT syndrome; F17.210 Nicotine dependence, cigarettes, uncomplicated; Z79.899 Other long term (current) drug therapy; Z91.14 Patient's other noncompliance with medication regimen; Z79.01 Long term (current) use of anticoagulants; Z79.82 Long term (current) use of aspirin; Z88.0 Allergy status to penicillin; Z82.49 Family history of ischemic heart disease and other diseases of the circulatory system
CPT/HCPCS: 36415; 80048; 80053; 80307; 82550; 82553; 84439; 84443; 84481; 84484; 85025; 93005; 93010; 96365; 96375; 99291; J1630; J1644; J3360; J3490; J7030

== ENCOUNTER 2017-06-21 14:05 | Inpatient (IN) | payer MEDICARE ==
--- NOTE | 2017-06-21 16:37 | ER Document Report ---
ED Medical Screen (RME) - General Chief Complaint: Pain All Over Stated Complaint: BACK PAIN Notes: This visit is the fourth visit to this emergency department by this patient in the last 11 days. Her previous 3 visits were final diagnoses of atrial fibrillation with rapid ventricular response and she was kept in the hospital overnight and then discharged. says that she was talking fine until she was here and was discharged and since she was having some difficulty speaking, he figured she had a stroke. Was not told that she had had a stroke by any medical person, however. Patient is complaining of her heart fluttering at times, back of her head hurting sometimes and her back hurting. She is able to walk but unsteady on her feet. Patient wanted to go out to eat today and they went to [facility] and had to assist her into the restaurant. When it finished eating, she was not able to walk back into the vehicle and required the assistance of another person along with her . says that she has been acting "drunk headed". Patient does not take any medications because she cannot afford them and her check has not come this month so she cannot refill her prescriptions. PMH: A. fib with RVR, CHF, hypertension. TRAVEL OUTSIDE OF THE [place] IN LAST 30 DAYS: No - Related Data Allergies/Adverse Reactions: Penicillins Allergy (Verified 06/21/17 14:21) Past Medical History - Social History Chew tobacco use (# tins/day): No Frequency of alcohol use: None Drug Abuse: None - Past Medical History Cardiac Medical History: Reports: Hx Atrial Fibrillation, Hx Congestive Heart Failure, Hx Hypertension Denies: Hx DVT, Hx Heart Attack, Hx Hypercholesterolemia, Hx Pulmonary Embolism Pulmonary Medical History: Denies: Hx Asthma, Hx COPD Neurological Medical History: Denies: Hx Seizures Endocrine Medical History: Denies: Hx Diabetes Mellitus Type 1, Hx Diabetes Mellitus Type 2, Hx Hyperthyroidism, Hx Hypothyroidism Renal/ Medical History: Denies: Hx Peritoneal Dialysis GI Medical History: Denies: Hx Cirrhosis, Hx Hepatitis Musculoskeltal Medical History: Reports Hx Arthritis Psychiatric Medical History: Denies: Hx Depression Infectious Medical History: Denies: Hx Hepatitis Physical Exam - Vital signs Vitals: Temp Pulse Resp BP Pulse Ox 97.4 F 113 H 20 151/105 H 98 06/21/17 14:18 06/21/17 14:18 06/21/17 14:18 06/21/17 14:18 06/21/17 14:18 Course - Vital Signs Vital signs: Temp Pulse Resp BP Pulse Ox 97.4 F 113 H 20 151/105 H 98 06/21/17 14:18 06/21/17 14:18 06/21/17 14:18 06/21/17 14:18 06/21/17 14:18
[2017-06-21 17:31] LABS: ABSOLUTE BASOPHILS # (AUTO) 0.1 10^3/uL (0.0-0.2); ABSOLUTE EOSINOPHILS # (AUTO) 0.2 10^3/uL (0.0-0.6); ABSOLUTE LYMPHOCYTES (AUTO) 1.1 10^3/uL (0.5-4.7); ABSOLUTE MONOCYTES (AUTO) 0.7 10^3/uL (0.1-1.4); BASOPHILS % (AUTO) 0.9 % (0-2); EOSINOPHILS % (AUTO) 1.9 % (0-6); HEMATOCRIT 44.3 % (36.0-47.0); HEMOGLOBIN 14.6 g/dL (12.0-15.5); HGB HCT DIFFERENCE -0.5; LYMPHOCYTES % (AUTO) 13.8 % (13-45); MEAN CORPUSCULAR HEMOGLOBIN 32.3 pg (27.0-33.4); MEAN CORPUSCULAR HGB CONC 33.1 g/dL (32.0-36.0); MEAN CORPUSCULAR VOLUME 98 fl (80-97); MONOCYTES % (AUTO) 8.9 % (3-13); RED BLOOD COUNT 4.53 10^6/uL (3.72-5.28); RED CELL DISTRIBUTION WIDTH 14.9 % (11.5-14.0); SEGMENTED NEUTROPHILS % (AUTO) 74.5 % (42-78); WHITE BLOOD COUNT 8.1 10^3/uL (4.0-10.5)
[2017-06-21 17:57] LABS: ALANINE AMINOTRANSFERASE 29 U/L (9-52); ALBUMIN 4.5 g/dL (3.5-5.0); ALKALINE PHOSPHATASE 129 U/L (38-126); ANION GAP 12 (5-19); ASPARTATE AMINO TRANSFERASE 72 U/L (14-36); BILIRUBIN,DIRECT 0.6 mg/dL (0.0-0.4); BLOOD UREA NITROGEN 22 mg/dL (7-20); CALCIUM 11.2 mg/dL (8.4-10.2); CARBON DIOXIDE 26 mmol/L (22-30); CHLORIDE 105 mmol/L (98-107); CREATININE RESULT 0.94 mg/dL (0.52-1.25); GLUCOSE 112 mg/dL (75-110); LIPASE 175.1 U/L (23-300); SODIUM 142.5 mmol/L (137-145)
[2017-06-21 18:11] LABS: CREATINE KINASE MB 3.85 ng/mL (<4.55); TROPONIN I 0.026 ng/mL
[2017-06-21 18:13] LABS: APPEARANCE,URINE SLIGHTLY-CLOUDY; BILIRUBIN,URINE NEGATIVE (NEGATIVE); GLUCOSE, URINE NEGATIVE (NEGATIVE); KETONES,URINE NEGATIVE (NEGATIVE); LEUKOCYTE ESTERASE,URINE TRACE (NEGATIVE); NITRITE,URINE NEGATIVE (NEGATIVE); PROTEIN,URINE 100 mg/dL (NEGATIVE); URINE SPECIFIC GRAVITY 1.021
[2017-06-21] MEDS ORDERED: METOPROLOL TARTRATE 50 MG TABLET PO ONE (18:47)
--- NOTE | 2017-06-21 20:20 | EKG REPORT ---
SEVERITY:- ABNORMAL ECG - ATRIAL FIBRILLATION, V-RATE 82-156 PROBABLE LVH WITH SECONDARY REPOL ABNRM : Confirmed by: Leon Alex MD 21-Jun-2017 20:19:46
[2017-06-21] MEDS ORDERED: FUROSEMIDE INJ/PF 40 MG/4 ML SDV IV ONE (22:51)
[2017-06-21] MEDS ORDERED: MAGNESIUM HYDROXIDE SUSP 30 ML UDCUP PO PRN (23:14)
[2017-06-21] MEDS ORDERED: ACETAMINOPHEN 325 MG TABLET PO PRN (23:14)
[2017-06-21] MEDS ORDERED: ENALAPRILAT DIHYDRATE INJ/PF 1.25 MG/1 ML SDV IV PRN (23:14)
[2017-06-21] MEDS ORDERED: APIXABAN 5 MG TABLET PO SCH (23:15)
--- NOTE | 2017-06-21 23:15 | ER Document Report ---
ED General - General Chief Complaint: Pain All Over Stated Complaint: BACK PAIN Time Seen by Provider: 06/21/17 17:16 Mode of Arrival: Stretcher Information source: Patient Notes: This is a 71-year-old female with a history of A. fib, medical noncompliance as well as an undiagnosed psychiatric issue. The patient has been to the ER several times and was just released from the hospital and presents with increasing weakness. The patient fully admits to not taking her medicines and not seeking medical care outside of the emergency room. The patient is a poor historian and is accompanied by her who is a poor historian. Patient denies any chest pain. She does report shortness of breath. TRAVEL OUTSIDE OF THE [place] IN LAST 30 DAYS: No - HPI Onset: Just prior to arrival Onset/Duration: Gradual Quality of pain: Dull Severity: Mild Pain Level: Denies Associated symptoms: Shortness of breath. denies: Chest pain, Fever Exacerbated by: Denies Relieved by: Denies Similar symptoms previously: No Recently seen / treated by doctor: No - Related Data Allergies/Adverse Reactions: Penicillins Allergy (Verified 06/21/17 14:21) Past Medical History - General Information source: Patient - Social History Smoking Status: Former Smoker Cigarette use (# per day): No Chew tobacco use (# tins/day): No Frequency of alcohol use: None Drug Abuse: None Lives with: Spouse/Significant other Family History: Reviewed & Not Pertinent Patient has suicidal ideation: No Patient has homicidal ideation: No - Past Medical History Cardiac Medical History: Reports: Hx Atrial Fibrillation, Hx Congestive Heart Failure, Hx Hypertension Denies: Hx DVT, Hx Heart Attack, Hx Hypercholesterolemia, Hx Pulmonary Embolism Pulmonary Medical History: Denies: Hx Asthma, Hx COPD Neurological Medical History: Denies: Hx Seizures Endocrine Medical History: Denies: Hx Diabetes Mellitus Type 1, Hx Diabetes Mellitus Type 2, Hx Hyperthyroidism, Hx Hypothyroidism Renal/ Medical History: Denies: Hx Peritoneal Dialysis GI Medical History: Denies: Hx Cirrhosis, Hx Hepatitis Musculoskeltal Medical History: Reports Hx Arthritis Psychiatric Medical History: Denies: Hx Depression Infectious Medical History: Denies: Hx Hepatitis Review of Systems - Review of Systems Constitutional: No symptoms reported EENT: No symptoms reported Cardiovascular: See HPI Respiratory: No symptoms reported Gastrointestinal: No symptoms reported Genitourinary: No symptoms reported Female Genitourinary: No symptoms reported Musculoskeletal: See HPI Skin: No symptoms reported Hematologic/Lymphatic: No symptoms reported Neurological/Psychological: No symptoms reported Physical Exam - Vital signs Vitals: Temp Pulse Resp BP Pulse Ox 97.4 F 113 H 20 151/105 H 98 06/21/17 14:18 06/21/17 14:18 06/21/17 14:18 06/21/17 14:18 06/21/17 14:18 Notes: Physical exam: GENERAL: 71-year-old weak appearing female, alert, poor historian. HEAD: Atraumatic, normocephalic. EYES: Pupils equal round and reactive to light, extraocular movements intact, sclera anicteric, conjunctiva are normal. ENT: TMs normal, nares patent, oropharynx clear without exudates. Moist mucous membranes. NECK: Normal range of motion, supple without lymphadenopathy or JVD. LUNGS: Decreased breath sounds bilaterally HEART: Regular rate and rhythm without murmurs, rubs or gallops. ABDOMEN: Soft, normoactive bowel sounds. No tenderness to palpation. No guarding, no rebound. No masses appreciated. EXTREMITIES: Normal range of motion, no pitting or edema. No clubbing or cyanosis. NEUROLOGICAL: Cranial nerves II through XII grossly intact. Normal speech, normal gait. PSYCH: Normal mood, normal affect. SKIN: Warm, Dry, normal turgor, no rashes or lesions noted. Course - Vital Signs Vital signs: Temp Pulse Resp BP Pulse Ox 97.5 F 79 18 140/95 H 95 06/22/17 02:53 06/22/17 02:53 06/22/17 02:53 06/22/17 02:53 06/22/17 02:53 - Laboratory Result Diagrams: 06/21/17 16:56 06/21/17 16:56 Laboratory results interpreted by me: 06/21/17 06/21/17 06/21/17 16:56 16:56 16:56 MCV 98 H RDW 14.9 H BUN 22 H Est GFR (Non-Af Amer) 59 L Glucose 112 H Calcium 11.2 H Direct Bilirubin 0.6 H AST 72 H Alkaline Phosphatase 129 H NT-Pro-B Natriuret Pep 32731 H Urine Protein Urine Blood Urine Urobilinogen Ur Leukocyte Esterase 06/21/17 17:45 MCV RDW BUN Est GFR (Non-Af Amer) Glucose Calcium Direct Bilirubin AST Alkaline Phosphatase NT-Pro-B Natriuret Pep Urine Protein 100 H Urine Blood MODERATE H Urine Urobilinogen 2.0 H Ur Leukocyte Esterase TRACE H - Diagnostic Test Radiology reviewed: Image reviewed, Reports reviewed - Chest x-ray shows cardiomegaly with evidence of pulmonary congestion. CT of the abdomen shows bilateral pleural effusions. - EKG Interpretation by Pr Rhythm: A.Fib - EKG shows atrial fibrillation with a ventricular rate of 105, no acute ST-T wave changes Discharge - Discharge Clinical Impression: Decompensated heart failure Condition: Stable Disposition: ADMITTED INPATIENT Admitting Provider: Hospitalist - dr rubio Unit Admitted: Telemetry
[2017-06-22 01:23] LABS: CREATINE KINASE MB 3.18 ng/mL (<4.55); TROPONIN I 0.023 ng/mL
--- NOTE | 2017-06-22 03:53 | PDOC H&P ---
History of Present Illness Admission Date/PCP: 06/21/17 23:14 Patient complains of: Palpitations and shortness of breath History of Present Illness: RENEE BONNER is a 71 year old female with a past medical history of recently diagnosed atrial fibrillation and bipolar disorder who has been admitted stabilized and discharged 3 times in the last 10 days. She was discharged earlier in the day for the above but did not fill medication prescriptions. She developed shortness of breath with palpitations brought to the emergency room for evaluation found to be in A. fib with RVR, pleural effusions bilaterally and a BNP of 13,000. She started on Lopressor Lasix and referred to the hospitalist for admission. She denies chest pain nausea vomiting diaphoresis. Past Medical History Cardiac Medical History: Reports: Atrial Fibrillation, Congestive Heart Failure , Hypertension Denies: DVT, Myocardial Infarction, Hyperlipidema, Pulmonary Embolism Pulmonary Medical History: Denies: Asthma, Chronic Obstructive Pulmonary Disease (COPD) Neurological Medical History: Denies: Seizures Endocrine Medical History: Denies: Diabetes Mellitus Type 1, Diabetes Mellitus Type 2, Hyperthyroidism, Hypothyroidism GI Medical History: Denies: Cirrhosis, Hepatitis Musculoskeltal Medical History: Reports: Arthritis Psychiatric Medical History: Denies: Depression Social History Information Source: Patient, PENDING SALE TO [facility] Records Lives with: Spouse/Significant other Smoking Status: Former Smoker Frequency of Alcohol Use: None Hx Recreational Drug Use: No Drugs: None Hx Prescription Drug Abuse: No - Advance Directive Resuscitation Status: Full Code Family History Family History: Arthritis, COPD Parental Family History Reviewed: Yes Children Family History Reviewed: Yes Sibling(s) Family History Reviewed.: Yes Medication/Allergy Home Medications: Aspirin [Aspirin EC] 81 mg PO DAILY 06/20/17 Apixaban [Eliquis 5 mg Tablet] 5 mg PO BID #60 tablet 06/21/17 Aripiprazole [Abilify 5 mg Tablet] 10 mg PO DAILY #30 tablet 06/21/17 Metoprolol Succinate [Toprol Xl 50 mg Tab.sr] 50 mg PO DAILY #30 tab.sr.24h Allergies/Adverse Reactions: Penicillins Allergy (Verified 06/21/17 14:21) Review of Systems ROS unobtainable: Due to mental status Constitutional: ABSENT: chills, fever(s), headache(s), weight gain, weight loss Eyes: ABSENT: visual disturbances Ears: ABSENT: hearing changes Cardiovascular: ABSENT: chest pain, dyspnea on exertion, edema, orthropnea, palpitations Respiratory: ABSENT: cough, hemoptysis Gastrointestinal: ABSENT: abdominal pain, constipation, diarrhea, hematemesis, hematochezia, nausea, vomiting Genitourinary: ABSENT: dysuria, hematuria Musculoskeletal: ABSENT: joint swelling Integumentary: ABSENT: rash, wounds Neurological: ABSENT: abnormal gait, abnormal speech, confusion, dizziness, focal weakness, syncope Psychiatric: ABSENT: anxiety, depression, homidical ideation, suicidal ideation Endocrine: ABSENT: cold intolerance, heat intolerance, polydipsia, polyuria Hematologic/Lymphatic: ABSENT: easy bleeding, easy bruising Physical Exam Vital Signs: Temp Pulse Resp BP Pulse Ox 97.5 F 79 18 140/95 H 95 06/22/17 02:53 06/22/17 02:53 06/22/17 02:53 06/22/17 02:53 06/22/17 02:53 Intake & Output 06/20/17 06/21/17 06/22/17 11:59 11:59 11:59 Output Total 300 Balance -300 Weight 61.2 kg General appearance: PRESENT: cooperative, mild distress Head exam: PRESENT: atraumatic, normocephalic Eye exam: PRESENT: conjunctiva pink, EOMI, PERRLA. ABSENT: scleral icterus Ear exam: PRESENT: normal external ear exam Mouth exam: PRESENT: moist, tongue midline Neck exam: PRESENT: JVD. ABSENT: carotid bruit, lymphadenopathy, thyromegaly Respiratory exam: PRESENT: crackles, prolonged expiratory phas, tachypnea. ABSENT: rales, rhonchi, wheezes Cardiovascular exam: PRESENT: irregular rhythm, +S1, +S2 Pulses: PRESENT: normal dorsalis pedis pul Vascular exam: PRESENT: normal capillary refill GI/Abdominal exam: PRESENT: normal bowel sounds, soft. ABSENT: distended, guarding, mass, organolmegaly, rebound, tenderness Rectal exam: PRESENT: deferred Extremities exam: PRESENT: full ROM. ABSENT: calf tenderness, clubbing, pedal edema Neurological exam: PRESENT: alert, awake, oriented to person, oriented to place , oriented to time, oriented to situation, CN II-XII grossly intact. ABSENT: motor sensory deficit Psychiatric exam: PRESENT: anxious, unusual affect Skin exam: PRESENT: dry, intact, warm. ABSENT: cyanosis, rash Results Laboratory Results: 06/22/17 06/22/17 00:25 00:25 Creatine Kinase 182 H CK-MB (CK-2) 3.18 Troponin I 0.023 Assessment & Plan - Diagnosis (1) Atrial fibrillation with RVR Is this a current diagnosis for this admission?: Yes Plan: Noncompliance with medication regiment, resume Lopressor. (2) Congestive heart failure Qualifiers: Is this a current diagnosis for this admission?: Yes Plan: High output failure secondary to uncontrolled A. fib. She is received Lasix appears improved with oxygen and adequately compensated for resumption of Lopressor. Reattempt education (3) Non compliance w medication regimen Is this a current diagnosis for this admission?: Yes Plan: Education, however I am unclear if she is able to care for herself in the independent setting consider placement given readmission 3 in 10 days. (4) Bipolar 1 disorder Is this a current diagnosis for this admission?: Yes Plan: Low-dose Abilify. - Time Time Spent: 30 to 50 Minutes - Inpatient Certification Medical Necessity: Need Close Monitoring Due to Risk of Patient Decompensation
[2017-06-22 07:37] LABS: ABSOLUTE BASOPHILS # (AUTO) 0.1 10^3/uL (0.0-0.2); ABSOLUTE EOSINOPHILS # (AUTO) 0.2 10^3/uL (0.0-0.6); ABSOLUTE LYMPHOCYTES (AUTO) 1.1 10^3/uL (0.5-4.7); ABSOLUTE MONOCYTES (AUTO) 0.7 10^3/uL (0.1-1.4); ABSOLUTE NEUT (AUTO) 5.4 10^3/uL (1.7-8.2); BASOPHILS % (AUTO) 0.7 % (0-2); EOSINOPHILS % (AUTO) 2.2 % (0-6); HEMATOCRIT 44.3 % (36.0-47.0); HEMOGLOBIN 14.6 g/dL (12.0-15.5); HGB HCT DIFFERENCE -0.5; LYMPHOCYTES % (AUTO) 15.1 % (13-45); MEAN CORPUSCULAR HEMOGLOBIN 32.2 pg (27.0-33.4); MEAN CORPUSCULAR VOLUME 97 fl (80-97); MONOCYTES % (AUTO) 9.4 % (3-13); RED BLOOD COUNT 4.55 10^6/uL (3.72-5.28); RED CELL DISTRIBUTION WIDTH 14.5 % (11.5-14.0); SEGMENTED NEUTROPHILS % (AUTO) 72.6 % (42-78); WHITE BLOOD COUNT 7.5 10^3/uL (4.0-10.5)
[2017-06-22 07:53] LABS: ANION GAP 9 (5-19); BLOOD UREA NITROGEN 20 mg/dL (7-20); CALCIUM 10.6 mg/dL (8.4-10.2); CARBON DIOXIDE 30 mmol/L (22-30); CHLORIDE 103 mmol/L (98-107); CREATINE KINASE 115 U/L (30-135); CREATININE RESULT 0.99 mg/dL (0.52-1.25); GLUCOSE 90 mg/dL (75-110); SODIUM 142.2 mmol/L (137-145)
[2017-06-22 08:01] LABS: POTASSIUM 3.7 mmol/L (3.6-5.0)
[2017-06-22 08:03] LABS: CREATINE KINASE MB 2.77 ng/mL (<4.55); TROPONIN I 0.029 ng/mL
[2017-06-22 08:05] VITALS: BP 148/95
--- NOTE | 2017-06-22 09:39 | PDOC PROGRESS REPORT ---
Subjective Progress Note for:: 06/22/17 Subjective:: Patient denies any complaints today. Physical Exam Vital Signs: Temp Pulse Resp BP Pulse Ox 97.4 F 75 15 148/95 H 96 06/22/17 07:48 06/22/17 07:48 06/22/17 07:48 06/22/17 07:48 06/22/17 07:48 Intake & Output 06/21/17 06/22/17 06/23/17 06:59 06:59 06:59 Output Total 1999 Balance -1999 Weight 61.2 kg General appearance: PRESENT: no acute distress Eye exam: PRESENT: conjunctiva pink. ABSENT: scleral icterus Mouth exam: PRESENT: moist, tongue midline Neck exam: ABSENT: JVD Respiratory exam: PRESENT: decreased breath sounds - Decreased breath sounds in the bases. ABSENT: rales, rhonchi, wheezes Cardiovascular exam: PRESENT: irregular rhythm. ABSENT: diastolic murmur, rubs , systolic murmur GI/Abdominal exam: PRESENT: normal bowel sounds, soft. ABSENT: distended, guarding, mass, organolmegaly, rebound, tenderness Extremities exam: PRESENT: pedal edema - Trace pedal edema. ABSENT: calf tenderness, clubbing Neurological exam: PRESENT: alert, awake, oriented to person, oriented to place , oriented to time, oriented to situation, CN II-XII grossly intact. ABSENT: motor sensory deficit Psychiatric exam: PRESENT: appropriate affect Skin exam: PRESENT: dry, intact, warm. ABSENT: cyanosis, rash Results Laboratory Results: 06/22/17 07:00 06/22/17 07:00 06/22/17 06/22/17 07:00 07:00 WBC 7.5 RBC 4.55 Hgb 14.6 Hct 44.3 MCV 97 MCH 32.2 MCHC 33.0 RDW 14.5 H Plt Count 165 Seg Neutrophils % 72.6 Lymphocytes % 15.1 Monocytes % 9.4 Eosinophils % 2.2 Basophils % 0.7 Absolute Neutrophils 5.4 Absolute Lymphocytes 1.1 Absolute Monocytes 0.7 Absolute Eosinophils 0.2 Absolute Basophils 0.1 Sodium 142.2 Potassium 3.7 D Chloride 103 Carbon Dioxide 30 Anion Gap 9 BUN 20 Creatinine 0.99 Est GFR ( Amer) > 60 Est GFR (Non-Af Amer) 56 L Glucose 90 Calcium 10.6 H 08/06/22/17 06/22/17 00:25 00:25 07:00 Creatine Kinase 182 H 115 CK-MB (CK-2) 3.18 Troponin I 0.023 06/22/17 07:00 Creatine Kinase CK-MB (CK-2) 2.77 Troponin I 0.029 Assessment & Plan - Diagnosis (1) Atrial fibrillation with RVR Is this a current diagnosis for this admission?: Yes Plan: Patient is currently rate controlled. Will ask cardiology to evaluate. Patient has been noncompliant with her medications. Will ask cardiology whether cardiac ablation would be appropriate for this patient for rate control given her history of noncompliance. Continue Eliquis for anticoagulation. (2) Congestive heart failure Qualifiers: Is this a current diagnosis for this admission?: Yes Plan: Patient is getting IV Lasix. She denies any shortness of breath this morning. (3) Bipolar 1 disorder Is this a current diagnosis for this admission?: Yes Plan: Continue with Abilify. (4) Hypertension Qualifiers: Hypertension type: essential hypertension Qualified Code(s): I10 - Essential (primary) hypertension Is this a current diagnosis for this admission?: Yes Plan: Blood pressure is under borderline control. (5) CKD (chronic kidney disease), stage III Is this a current diagnosis for this admission?: Yes Plan: Creatinine is currently normal. Will watch closely as we give Lasix. - Time Time Spent with patient: 25-34 minutes - Inpatient Certification Medical Necessity: Need Close Monitoring Due to Risk of Patient Decompensation
[2017-06-22] MEDS ORDERED: ASPIRIN 81 MG TABLET, ENT COATED PO SCH (10:00)
[2017-06-22] MEDS ORDERED: FUROSEMIDE INJ/PF 40 MG/4 ML SDV IV SCH (10:00)
[2017-06-22] MEDS ORDERED: ARIPIPRAZOLE 5 MG TABLET PO SCH ×2 (10:00)
[2017-06-22] MEDS ORDERED: DOCUSATE SODIUM 100 MG CAPSULE PO SCH (10:00)
[2017-06-22] MEDS ORDERED: METOPROLOL SUCCINATE 50 MG TAB.SR.24H PO SCH (10:00)
--- NOTE | 2017-06-22 13:00 | PDOC CONSULTATION ---
Consultation Consult Date: 06/22/17 Attending physician:: GUI ALLEN Consult reason:: Atrial fibrillation, pleural effusion History of Present Illness Admission Date/PCP: 06/21/17 23:14 Patient complains of: Generalized weakness History of Present Illness: JOVANNY BONNER is a 71 year old female with a past medical history of recently diagnosed atrial fibrillation and bipolar disorder who has been admitted stabilized and discharged 3 times in the last 10 days. She was discharged earlier in the day for the above but did not fill medication prescriptions. She developed shortness of breath with palpitations brought to the emergency room for evaluation found to be in A. fib with RVR, pleural effusions bilaterally and a BNP of 13,000. She started on Lopressor Lasix and was subsequently admitted. She denies chest pain nausea vomiting diaphoresis. Patient has history of chronic atrial fibrillation and has a history of noncompliance. She claims this morning that she is at baseline. Patient's fianc in the room. Patient continues to smoke. She is requesting to be discharged. On telemetry monitoring her heart rate was noted to be well controlled. Past Medical History Cardiac Medical History: Reports: Atrial Fibrillation, Congestive Heart Failure , Hypertension Denies: DVT, Myocardial Infarction, Hyperlipidema, Pulmonary Embolism Pulmonary Medical History: Denies: Asthma, Chronic Obstructive Pulmonary Disease (COPD) Neurological Medical History: Denies: Seizures Endocrine Medical History: Denies: Diabetes Mellitus Type 1, Diabetes Mellitus Type 2, Hyperthyroidism, Hypothyroidism GI Medical History: Denies: Cirrhosis, Hepatitis Musculoskeltal Medical History: Reports: Arthritis Psychiatric Medical History: Denies: Depression Social History Information Source: Patient Lives with: Spouse/Significant other Smoking Status: Current Some Day Smoker - Currently claims she bought some nicotine patch Frequency of Alcohol Use: None Hx Recreational Drug Use: No Drugs: None Hx Prescription Drug Abuse: No - Advance Directive Resuscitation Status: Full Code Surrogate healthcare decision maker:: Carlin ang is the surrogate decision-maker Family History Family History: Reviewed & Not Pertinent, COPD, Hypertension Parental Family History Reviewed: Yes Children Family History Reviewed: Yes Sibling(s) Family History Reviewed.: Yes Medication/Allergy Home Medications: No Home Medications 06/22/17 Allergies/Adverse Reactions: Penicillins Allergy (Verified 06/21/17 14:21) Review of Systems Review of Systems: Please see history of present illness and past medical history as wall. Constitutional: No fever or chills reported. Head : No recent chronic headaches, recent head injury. Eyes: No recent eye pain, diplopia, redness, discharge, acute visual changes. Ears: No recent chronic ear pain, acute hearing loss, ear discharge. Oral cavity: No recent ulcerations, bleeding, oral cavity discomfort. Neck: No recent acute neck pain reported. Hematologic: No recent easy bruising or bleeding or hematologic malignancy reported. Lymphatic: No recent lymphatic malignancy, chronic lymphadenopathy reported yet Cardiovascular system review: See history of present illness. Respiratory system review: No recent chronic cough, hemoptysis, blood clots in the lungs reported. Mild Shortness of breath on exertion Gastrointestinal system review: Negative for any recent acute or chronic abdominal pain, hematemesis, melena, recent change in bowel habits. Genitourinary system review: No recent acute or chronic hematuria, flank pain, UTI etc. reported. Skin system review: Negative for any recent abnormal bruising, no rash, no pruritus reported. Neurologic: No prior history of strokes, mini strokes, seizure disorder. Psychologic: No history of major psychosis or major depression reported. Musculoskeletal: Minor aches and pains reported. No acute joint swelling reported. Endocrine: No recent polyuria, polydipsia, recent heat or cold intolerance. Physical Exam Vital Signs: Temp Pulse Resp BP Pulse Ox 97.4 F 75 15 148/95 H 96 06/22/17 07:48 06/22/17 07:48 06/22/17 07:48 06/22/17 07:48 06/22/17 07:48 Intake & Output 06/21/17 06/22/17 06/23/17 06:59 06:59 06:59 Intake Total 220 Output Total 2000 100 Balance -2000 120 Weight 61.2 kg Exam: GENERAL: well-nourished and in no acute distress. Alert and oriented x3 HEAD: Atraumatic, normocephalic. EYES: Pupils equal round and reactive to light, extraocular movements intact, sclera anicteric, conjunctiva are normal. ENT: TMs normal, nares patent, oropharynx clear without exudates. Moist mucous membranes. No oral ulcerations or bleeding gums noted NECK: supple without lymphadenopathy. Trachea is central. No cervical or axillary lymphadenopathy noted. Carotids are 2+, JVD WNL LUNGS: Respiration seems nonlabored, no significant accessory muscle action noted. Bilateral mild wheezes rales or rhonchi noted. No significant dullness noted on percussion. CHEST: Palpation of the chest wall shows no significant chest wall tenderness. No other significant abnormalities noted. 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 ABDOMEN: Soft, no significant tenderness appreciated, normoactive bowel sounds. No guarding, no rebound. No rigidity noted . No masses appreciated. EXTREMITIES: Pedal pulses are 1-2+, no calf tenderness noted. No clubbing or cyanosis.trace to 1+ pedal edema noted NEUROLOGICAL: Focused neurological exam showed no significant neurologic deficit. Normal speech, no focal weakness appreciated. PSYCH: Normal mood, normal affect. Judgment and insight within normal limits. SKIN: No significant ecchymosis, rash, ulcerations or signs of pruritus noted. MUSCULOSKELETAL EXAM: No significant joint swelling noted. Results Laboratory Results: 06/22/17 07:00 06/22/17 07:00 06/22/17 06/22/17 07:00 07:00 WBC 7.5 RBC 4.55 Hgb 14.6 Hct 44.3 MCV 97 MCH 32.2 MCHC 33.0 RDW 14.5 H Plt Count 165 Seg Neutrophils % 72.6 Lymphocytes % 15.1 Monocytes % 9.4 Eosinophils % 2.2 Basophils % 0.7 Absolute Neutrophils 5.4 Absolute Lymphocytes 1.1 Absolute Monocytes 0.7 Absolute Eosinophils 0.2 Absolute Basophils 0.1 Sodium 142.2 Potassium 3.7 D Chloride 103 Carbon Dioxide 30 Anion Gap 9 BUN 20 Creatinine 0.99 Est GFR ( Amer) > 60 Est GFR (Non-Af Amer) 56 L Glucose 90 Calcium 10.6 H 06/22/17 06/22/17 06/22/17 00:25 00:25 07:00 Creatine Kinase 182 H 115 CK-MB (CK-2) 3.18 Troponin I 0.023 06/22/17 07:00 Creatine Kinase CK-MB (CK-2) 2.77 Troponin I 0.029 EKG Comments: Atrial fibrillation with mildly increased heart rate and minor nonspecific ST-T changes Assessment & Plan - Diagnosis (1) Atrial fibrillation with RVR Is this a current diagnosis for this admission?: Yes (2) Congestive heart failure Qualifiers: Congestive heart failure type: unspecified congestive heart failure type Is this a current diagnosis for this admission?: Yes (3) COPD (chronic obstructive pulmonary disease) Qualifiers: Emphysema type: unspecified Is this a current diagnosis for this admission?: Yes (4) Bipolar disorder Qualifiers: Active/Remission status: remission status unspecified Qualified Code(s): F31.9 - Bipolar disorder, unspecified Is this a current diagnosis for this admission?: Yes - Notes Notes: Atrial fibrillation with rapid ventricular response: Agree with starting beta- brooks. May consider Cardizem for rate control. Patient currently on Eliquis continue that. Congestive heart failure: BNP is elevated. Recommend low-dose diuretic therapy. Currently patient seems euvolemic. 2D echo ordered to evaluate because of CHF. COPD: Patient has been advised to quit smoking. Continue bronchodilator and other therapy. Bipolar disorder: Patient being managed elsewhere. - Time Time Spent: 30 to 50 Minutes - CODE STATUS was discussed, patient remains full code. Surrogate decision-maker unchanged. Multiple medical problems were addressed. More than 50% of the time spent coordinating care, discussing management plans with involved caregivers. Management plans discussed with involved personnels. Medical decision making was of moderate to high complexity , patient's has multiple comorbidities. Medications reviewed and adjusted accordingly: Yes
--- NOTE | 2017-06-22 14:48 | RADIOLOGY REPORT (SQ) ---
EXAM DESCRIPTION: CT HEAD WITHOUT COMPLETED DATE/TIME: 06/21/2017 1722 hours REASON FOR STUDY: Difficulty speaking, altered mental status COMPARISON: No previous TECHNIQUE: CT brain without IV contrast was performed, reviewed at bone, subdural, and brain parench ymal windows. RADIATION DOSE: 64.6 mGy LIMITATIONS: No limitations FINDINGS: No CT evidence of acute large territory ischemic change, acute intracranial hemorrhage, ma ss effect, or midline shift. There is moderate spotty low attenuation in the bifrontal and biparietal white matter likely chronic small vessel ischemic change. Ventricles extra-axial CSF spaces are unremarkable. Bone windows demonstrate no calvarial fracture. Paranasal sinuses, mastoid air cells clear. Parasellar carotid artery calcification. This report was called to Dr. Millard IMPRESSION: No acute findings. Chronic white matter disease.
--- NOTE | 2017-06-22 15:05 | RADIOLOGY REPORT (SQ) ---
EXAM DESCRIPTION: CHEST PA/LAT COMPLETED DATE/TIME: 06/21/2017 5:16 pm REASON FOR STUDY: Hx CHF, A. fib COMPARISON: None. TECHNIQUE: CT scan of the abdomen and pelvis performed without intravenous or oral contrast. Images reviewed with lung, soft tissue, and bone windows. Reconstructed coronal and sagittal MPR images revi ewed. All images stored on PACS. All CT scanners at this facility use dose modulation, iterative reconstruction, and/or weight based d osing when appropriate to reduce radiation dose to as low as reasonably achievable (ALARA). [facility]: Dose Right [facility]: CareDose [facility]: Dose Right [facility]: Teradose 4D [facility]: [employer] RADIATION DOSE: mGy. LIMITATIONS: None. FINDINGS: LOWER CHEST: Moderate right pleural effusion. NON-CONTRASTED LIVER, SPLEEN, ADRENALS: Ascites. Evaluation limited by lack of IV contrast. No ident ified significant masses. PANCREAS: No masses identified. GALLBLADDER: No identified stones by CT criteria. RIGHT KIDNEY AND URETER: No solid masses. Parenchymal calcifications. No hydronephrosis or hydrouret er. LEFT KIDNEY AND URETER: No solid masses. Parenchymal calcifications. No hydronephrosis or hydrourete r. AORTA AND RETROPERITONEUM: No aneurysm. Scattered adenopathy. BOWEL AND PERITONEAL CAVITY: Ascites. No obvious obstruction. APPENDIX: Not visualized. PELVIS, BLADDER, AND ABDOMINAL WALL:Anasarca. Mild free fluid. Bladder normal. BONES: No significant findings. OTHER: No other significant finding. IMPRESSION: Ascites. Moderate right pleural effusion.Anasarca. TECHNICAL DOCUMENTATION: JOB ID: [id number] Quality ID # [id number]: Final reports with documentation of one or more dose reduction techniques (e.g., Au tomated exposure control, adjustment of the mA and/or kV according to patient size, use of iterative reconstruction technique) 2010 [employer]- All Rights Reserved
--- NOTE | 2017-06-22 15:12 | PDOC DISCHARGE SUMMARY ---
General - Admit/Disc Date/PCP Admission Date/Primary Care Provider: 06/21/17 23:14 Discharge Date: 06/22/17 - Discharge Diagnosis (1) Atrial fibrillation with RVR Is this a current diagnosis for this admission?: Yes (2) Congestive heart failure Is this a current diagnosis for this admission?: Yes (3) Bipolar 1 disorder Is this a current diagnosis for this admission?: Yes (4) Hypertension Is this a current diagnosis for this admission?: Yes (5) CKD (chronic kidney disease), stage III Is this a current diagnosis for this admission?: Yes - Additional Information Resuscitation Status: Full Code Discharge Diet: Cardiac Discharge Activity: Activity As Tolerated, Balance Activity w/Rest, Weigh Daily Home Medications: No Home Medications 06/22/17 History of Present Illness History of Present Illness: RENEE BONNER is a 71 year old female Hospital Course Hospital Course: The patient left AMA. Her was present at the bedside. She is competent to make decisions. Physical Exam Vital Signs: Temp Pulse Resp BP Pulse Ox 97.4 F 75 15 148/95 H 96 06/22/17 07:48 06/22/17 07:48 06/22/17 07:48 06/22/17 07:48 06/22/17 07:48 Intake & Output 06/21/17 06/22/17 06/23/17 06:59 06:59 06:59 Intake Total 220 Output Total 2000 100 Balance -2000 120 Weight 61.2 kg General appearance: PRESENT: no acute distress Eye exam: PRESENT: conjunctiva pink. ABSENT: scleral icterus Mouth exam: PRESENT: moist, tongue midline Neck exam: ABSENT: JVD Respiratory exam: PRESENT: clear to auscultation susan. ABSENT: rales, rhonchi, wheezes Cardiovascular exam: PRESENT: irregular rhythm. ABSENT: diastolic murmur, rubs , systolic murmur GI/Abdominal exam: PRESENT: normal bowel sounds, soft. ABSENT: distended, guarding, mass, organolmegaly, rebound, tenderness Extremities exam: PRESENT: pedal edema. ABSENT: calf tenderness, clubbing Neurological exam: PRESENT: alert, awake, oriented to person, oriented to place , oriented to time, oriented to situation, CN II-XII grossly intact. ABSENT: motor sensory deficit Psychiatric exam: PRESENT: anxious Skin exam: PRESENT: dry, intact, warm. ABSENT: cyanosis, rash Results Laboratory Results: 06/22/17 07:00 06/22/17 07:00 06/22/17 06/22/17 07:00 07:00 WBC 7.5 RBC 4.55 Hgb 14.6 Hct 44.3 MCV 97 MCH 32.2 MCHC 33.0 RDW 14.5 H Plt Count 165 Seg Neutrophils % 72.6 Lymphocytes % 15.1 Monocytes % 9.4 Eosinophils % 2.2 Basophils % 0.7 Absolute Neutrophils 5.4 Absolute Lymphocytes 1.1 Absolute Monocytes 0.7 Absolute Eosinophils 0.2 Absolute Basophils 0.1 Sodium 142.2 Potassium 3.7 D Chloride 103 Carbon Dioxide 30 Anion Gap 9 BUN 20 Creatinine 0.99 Est GFR ( Amer) > 60 Est GFR (Non-Af Amer) 56 L Glucose 90 Calcium 10.6 H 06/22/17 06/22/17 06/22/17 00:25 00:25 07:00 Creatine Kinase 182 H 115 CK-MB (CK-2) 3.18 Troponin I 0.023 06/22/17 07:00 Creatine Kinase CK-MB (CK-2) 2.77 Troponin I 0.029 Impressions: Head CT 06/21/17 16:21 IMPRESSION: No acute findings. Chronic white matter disease. Chest X-Ray 06/21/17 16:22 IMPRESSION: Ascites. Moderate right pleural effusion.Anasarca. Qualifiers PATEINT BEING DISCHARGED WITH ANY OF THE FOLLOWING DIAGNOSIS?: No Plan Discharge Plan: Patient left AMA. Time Spent: Less than 30 Minutes
--- NOTE | 2017-06-23 10:29 | XCELERA REPORT ---
[address] [address] Transthoracic Echocardiogram Report Name: RENEE BONNER Age: 71 yrs Gender: Female : 1945 Patient Status: Inpatient Patient Location: [address] [place] [address] Study Date: 06/22/2017 08:21 AM Height: 65 in Weight: 141 lb BSA: 1.7 m2 Procedure: A complete two-dimensional transthoracic echocardiogram was performed (2D, M-mode, spectral and color flow Doppler). The study was technically adequate with some images being suboptimal in quality. Reason For Study: chf Ordering Physician: LORIE CANTU Performed By: Bharati Lees Interpretation Summary The Ejection Fraction estimate is 45-50% Left ventricular systolic function is mildly reduced. The left ventricle is grossly normal size. There is mild global hypokinesis of the left ventricle. The right ventricular systolic function is normal. The left atrium is severely dilated. The right atrium is mildly dilated. A patent foramen ovale is suspected. There is no mitral valve stenosis. There is a moderate to severe amount of mitral regurgitation There is a trace to mild amount of aortic regurgitation There is no aortic valve stenosis There is a moderate amount of tricuspid regurgitation There is moderate pulmonary hypertension by echo Right ventricular systolic pressure is estimated to be elevated at 50- 60mmHg. There is no pericardial effusion. MMode/2D Measurements & Calculations RVDd: 2.7 cm LVIDd: 5.1 cm FS: 21.4 % Ao root diam: IVSd: 1.3 cm LVIDs: 4.0 cm EDV(Teich): 123.8 ml 2.8 cm LVPWd: 1.2 cm ESV(Teich): 70.4 ml Ao root area: EF(Teich): 43.2 % 6.1 cm2 LA dimension: 5.1 cm LVOT diam: LVLd ap4: 8.8 cm SV(MOD-sp4): 50.0 ml 2.0 cm EDV(MOD-sp4): LA A2Cs: 35.5 cm2 LVOT area: 115.0 ml LVLs ap4: 7.6 cm 3.1 cm2 ESV(MOD-sp4): 65.0 ml EF(MOD-sp4): 43.5 % LA A4Cs: LA length: 7.1 cm LA Vol Index (BP): LA Volume: 130.5 ml 30.7 cm2 76.5 ml/m2 Doppler Measurements & Calculations MV E max marzena: MV P1/2t max marzena: Ao V2 max: LV V1 max P.4 cm/sec 118.5 cm/sec 125.5 cm/sec 1.7 mmHg MV P1/2t: 57.2 msec Ao max PG: LV V1 max: MVA(P1/2t): 3.8 cm2 6.3 mmHg 66.1 cm/sec MV dec slope: TARAH(V,D): 1.6 cm2 606.6 cm/sec2 PA V2 max: PI end-d marzena: TR max marzena: 67.1 cm/sec 215.8 cm/sec 352.9 cm/sec PA max P.8 mmHg TR max P.8 mmHg Left Ventricle The left ventricle is grossly normal size. Left ventricular systolic function is mildly reduced. The Ejection Fraction estimate is 45-50%. LV diastolic function could not be adequately assessed due to atrial fibrilation. There is mild global hypokinesis of the left ventricle. Right Ventricle The right ventricle is grossly normal size. There is normal right ventricular wall thickness. The right ventricular systolic function is normal. Atria The right atrium is mildly dilated. The left atrium is severely dilated. A patent foramen ovale is suspected. Mitral Valve The mitral valve leaflets are sclerotic, but show no functional abnormalities. There is no mitral valve stenosis. There is a moderate to severe amount of mitral regurgitation. Aortic Valve The aortic valve is sclerotic, but shows no functional abnormality. There is no aortic valve stenosis. There is a trace to mild amount of aortic regurgitation. Tricuspid Valve The tricuspid valve is not well visualized, but is grossly normal. There is no tricuspid stenosis. There is a moderate amount of tricuspid regurgitation. There is moderate pulmonary hypertension by echo. Right ventricular systolic pressure is estimated to be elevated at 50-60mmHg. Pulmonic Valve The pulmonic valve is not well visualized. There is a mild amount of pulmonic regurgitation. Great Vessels The aortic root is not well visualized but is probably normal size. The inferior vena cava appeared normal and decreased > 50% with respiration (RAP 5-10 mmHg). Effusions There is no pericardial effusion. : LORIE CANTU > Timothy Guerrier
--- NOTE | 2017-06-26 19:19 | RADIOLOGY REPORT (SQ) ---
EXAM DESCRIPTION: CT LTD RENAL STONE PROTOCOL ON COMPLETED DATE/TIME: 06/21/2017 7:19 pm REASON FOR STUDY: hematuria, back pain COMPARISON: Chest CT from 09/10/2016. TECHNIQUE: CT scan of the abdomen and pelvis performed without intravenous or oral contrast. Images reviewed with lung, soft tissue, and bone windows. Reconstructed coronal and sagittal MPR images revi ewed. All images stored on PACS. All CT scanners at this facility use dose modulation, iterative reconstruction, and/or weight based d osing when appropriate to reduce radiation dose to as low as reasonably achievable (ALARA). [facility]: Dose Right [facility]: CareDose [facility]: Dose Right [facility]: Teradose 4D [facility]: [employer] RADIATION DOSE: mGy. LIMITATIONS: Limited by patient motion. FINDINGS: LOWER CHEST: Stable chronic lung change, stable small right pleural effusion, and stable t race left pleural effusion. NON-CONTRASTED LIVER, SPLEEN, ADRENALS: Evaluation limited by lack of IV contrast. No identified sign ificant masses. PANCREAS: No masses. No peripancreatic inflammatory changes. GALLBLADDER: No identified stones by CT criteria. No inflammatory changes to suggest cholecystitis. RIGHT KIDNEY AND URETER: No suspicious masses. Assessment limited by lack of IV contrast. Nonobstru cting 4 mm calculus. No hydronephrosis or hydroureter. LEFT KIDNEY AND URETER: No suspicious masses. Assessment limited by lack of IV contrast. Nonobstruc ting calculi versus vascular calcifications. No hydronephrosis or hydroureter. AORTA AND RETROPERITONEUM: Vascular calcifications. No aneurysm. No retroperitoneal masses or adenop athy. BOWEL AND PERITONEAL CAVITY: No obvious masses or inflammatory changes. Mild ascites. APPENDIX: Not visualized. PELVIS, BLADDER, AND ABDOMINAL WALL:Body wall edema compatible with anasarca. No abnormal masses. No free fluid. Bladder normal. BONES: Degenerative change without fracture or suspicious osseous lesion. OTHER: No other significant finding. IMPRESSION: NONOBSTRUCTING RIGHT RENAL CALCULUS. NO LOWER URINARY TRACT STONES OR HYDRONEPHROSIS. PLEURAL EFFUSIONS, MILD ASCITES, AND ANASARCA COMPATIBLE WITH 3RD SPACING. ADDITIONAL CHRONIC CHANGES ABOVE. COMMENT: INITIAL STUDY WAS LOST DUE TO TECHNICAL TISSUES. THIS IS A REINTERPRETATION PERFORMED ON . TECHNICAL DOCUMENTATION: JOB ID: [id number] Quality ID # [id number]: Final reports with documentation of one or more dose reduction techniques (e.g., Au tomated exposure control, adjustment of the mA and/or kV according to patient size, use of iterative reconstruction technique) 2010 [employer]- All Rights Reserved
== END 2017-06-22 10:45 | disposition left against medical advice (07) | DRG 309 ==
LOC: ER 14:05 → EH 23:14 → UNDOADMIN 23:41 → 4S 06-22 01:42
PROVIDERS: ADMIT Internal Medicine; ATTEND Internal Medicine
DX: I48.91 Unspecified atrial fibrillation (principal); I13.0 Hypertensive heart and chronic kidney disease with heart failure and stage 1 through stage 4 chronic kidney disease, or unspecified chronic kidney disease; I50.9 Heart failure, unspecified; N18.3 Chronic kidney disease, stage 3 (moderate); F31.9 Bipolar disorder, unspecified; J44.9 Chronic obstructive pulmonary disease, unspecified; F17.210 Nicotine dependence, cigarettes, uncomplicated; Z91.120 Patient's intentional underdosing of medication regimen due to financial hardship; Z79.01 Long term (current) use of anticoagulants; Z79.899 Other long term (current) drug therapy; Z88.0 Allergy status to penicillin
CPT/HCPCS: 36415; 70450; 71020; 76380; 80048; 80053; 81001; 82550; 82553; 83690; 83880; 84484; 85025; 93005; 93010; 93306; 96374; 99285; J1940

== ENCOUNTER 2017-07-01 22:17 | Emergency (ER) | payer MEDICARE ==
[2017-07-01] MEDS ORDERED: DILTIAZEM HCL INJ 25 MG/5 ML VIAL IV ONE (23:29)
--- NOTE | 2017-07-01 23:33 | ER Document Report ---
ED General - General Chief Complaint: Chest Pain Stated Complaint: CHEST PAIN Time Seen by Provider: 07/01/17 23:24 Notes: Patient is a 71-year-old female with a history of atrial fibrillation. She presents because her heart is moving fastens causing some back pain as well as some pain into her chest. Patient has been admitted twice this month because A. fib with RVR. Both times she did not fill her medications and has not been taking her medications. She did leave AMA at her last admission. No fevers. No difficulty breathing. No vomiting. No abdominal pain. No other complaints at this time. She says she does not have a doctor. She says again she was unable to fill her medications because she does not have her money. TRAVEL OUTSIDE OF THE [place] IN LAST 30 DAYS: No - Related Data Allergies/Adverse Reactions: Penicillins Allergy (Verified 06/21/17 14:21) Past Medical History - Social History Smoking Status: Current Every Day Smoker Frequency of alcohol use: None Drug Abuse: None Family History: Reviewed & Not Pertinent, COPD, Hypertension Patient has suicidal ideation: No Patient has homicidal ideation: No - Past Medical History Cardiac Medical History: Reports: Hx Atrial Fibrillation, Hx Congestive Heart Failure, Hx Hypertension Denies: Hx DVT, Hx Heart Attack, Hx Hypercholesterolemia, Hx Pulmonary Embolism Pulmonary Medical History: Denies: Hx Asthma, Hx COPD Neurological Medical History: Denies: Hx Seizures Endocrine Medical History: Denies: Hx Diabetes Mellitus Type 1, Hx Diabetes Mellitus Type 2, Hx Hyperthyroidism, Hx Hypothyroidism Renal/ Medical History: Denies: Hx Peritoneal Dialysis GI Medical History: Denies: Hx Cirrhosis, Hx Hepatitis Musculoskeltal Medical History: Reports Hx Arthritis Psychiatric Medical History: Denies: Hx Depression Infectious Medical History: Denies: Hx Hepatitis Review of Systems - Review of Systems Notes: My Normal Review Basic REVIEW OF SYSTEMS: CONSTITUTIONAL : Denies fever, chills, or sweats. Denies recent illness. EENT: Denies eye, ear, throat, or mouth pain or symptoms. Denies nasal or sinus congestion. CARDIOVASCULAR: Chest pain. Palpitations RESPIRATORY: Denies cough, cold, or chest congestion. Denies shortness of breath, difficulty breathing, or wheezing. GASTROINTESTINAL: Denies abdominal pain. Denies nausea, vomiting, or diarrhea. Denies constipation. GENITOURINARY: Denies difficulty urinating, painful urination, burning, frequency, or blood in urine. MUSCULOSKELETAL: Some back pain. SKIN: Denies rash or skin lesions. NEUROLOGICAL: Denies altered mental status or loss of consciousness. Denies headache. Denies weakness or paralysis or loss of use of either side. Denies problems with gait or speech. Denies sensory or motor loss. ALL OTHER SYSTEMS REVIEWED AND NEGATIVE. Physical Exam - Vital signs Vitals: Temp Pulse Resp BP Pulse Ox 98.2 F 116 H 20 150/111 H 95 07/01/17 22:58 07/01/17 22:58 07/01/17 22:58 07/01/17 22:58 07/01/17 22:58 - Notes Notes: General Appearance: Well nourished, alert, cooperative, no acute distress, no obvious discomfort. Vitals: reviewed, See vital signs table. Head: no swelling or tenderness to the head Eyes: PERRL, EOMI, Conjuctiva clear Mouth: No decreasd moisture Neck: Supple, no neck tenderness Lungs: No wheezing, No rales, No rhonci, No accessory muscle use, good air exchange bilaterally. Heart: Rapid rate, irregular rythm, No murmur, no rub Abdomen: Normal BS, soft, No rigidity, No abdominal tenderness, No guarding, no rebound, no abdominal masses, no organomegaly Extremities: strength 5/5 in all extremities, good pulses in all extremities, no swelling or tenderness in the extremities, no edema. Skin: warm, dry, appropriate color, no rash Neuro: speech clear, oriented x 3, normal affect, responds appropriately to questions. Course - Re-evaluation Re-evalutation: 07/02/17 01:13 Despite patient receiving Cardizem and metoprolol her heart rate still continues to run high. We will have to admit her and placed on Cardizem drip again due to her medical noncompliance. Patient has no chest pain at this time. She still some slight back pain which she says she has frequently. Patient is agreeable to admission. Hospitalist is currently in the middle of caring for sick patient on the floor and therefore admission will be delayed until he is done. 07/03/17 03:25 Patient was able to be weaned off the Cardizem drip. Her heart rate remained normal for several hours. I did check out the patient to morning ER physician as patient does not require admission at this time and just needs to be placed back on her medications. She has prescriptions for medications but says she cannot afford them until July 06. I therefore did a social services aide consult to find a way to help her pay for medications until she can get them filled on July 06 otherwise she will just continue to return because she will keep going back into atrial fibrillation with rapid ventricular response. I did see were social services aide did see the patient. I do not see a clear plan but do see that the patient was discharged home from time during the day. Dictation of this chart was performed using voice recognition software; therefore, there may be some unintended grammatical errors. 07/03/17 03:27 - Vital Signs Vital signs: Temp Pulse Resp BP Pulse Ox 97.7 F 116 H 18 140/98 H 96 07/02/17 09:43 07/01/17 22:58 07/02/17 09:43 07/02/17 09:43 07/02/17 09:43 - Laboratory Result Diagrams: 07/01/17 23:36 07/01/17 23:36 Laboratory results interpreted by me: 07/01/17 07/01/17 07/01/17 23:36 23:36 23:36 RDW 14.4 H BUN 26 H Est GFR ( Amer) 58 L Est GFR (Non-Af Amer) 48 L Glucose 124 H Calcium 10.7 H Total Bilirubin 1.8 H Direct Bilirubin 0.9 H Creatine Kinase CK-MB (CK-2) 7.09 H NT-Pro-B Natriuret Pep 07/02/17 07/02/17 00:51 00:51 RDW BUN Est GFR ( Amer) Est GFR (Non-Af Amer) Glucose Calcium Total Bilirubin Direct Bilirubin Creatine Kinase 187 H CK-MB (CK-2) NT-Pro-B Natriuret Pep 6820 H Discharge - Discharge Clinical Impression: Non compliance w medication regimen Atrial fibrillation Qualifiers: Atrial fibrillation type: chronic Qualified Code(s): I48.2 - Chronic atrial fibrillation Bipolar disorder Qualifiers: Active/Remission status: remission status unspecified Qualified Code(s): F31.9 - Bipolar disorder, unspecified Disposition: HOME, SELF-CARE Additional Instructions: Please take your medications as prescribed. Please return to the ER immediately if your heart starts to beat fast or if you feel unwell. Please follow up with the spare hand carding, Dr. Guerrier, for further management of your atrial fibrillation and high blood pressure. Prescriptions: Apixaban [Eliquis 5 mg Tablet] 5 mg PO BID #40 tablet Aripiprazole [Abilify 5 mg Tablet] 5 mg PO DAILY #20 tablet Metoprolol Succinate 50 mg PO DAILY #20 tab.er.24h
[2017-07-01] MEDS ORDERED: APIXABAN 2.5 MG TABLET PO ONE (23:34)
[2017-07-01 23:48] LABS: ABSOLUTE BASOPHILS # (AUTO) 0.1 10^3/uL (0.0-0.2); ABSOLUTE EOSINOPHILS # (AUTO) 0.1 10^3/uL (0.0-0.6); ABSOLUTE LYMPHOCYTES (AUTO) 1.6 10^3/uL (0.5-4.7); ABSOLUTE MONOCYTES (AUTO) 0.7 10^3/uL (0.1-1.4); ABSOLUTE NEUT (AUTO) 4.6 10^3/uL (1.7-8.2); BASOPHILS % (AUTO) 1.3 % (0-2); EOSINOPHILS % (AUTO) 1.8 % (0-6); HEMATOCRIT 41.3 % (36.0-47.0); HEMOGLOBIN 13.9 g/dL (12.0-15.5); HGB HCT DIFFERENCE 0.4; LYMPHOCYTES % (AUTO) 22.6 % (13-45); MEAN CORPUSCULAR HEMOGLOBIN 32.7 pg (27.0-33.4); MEAN CORPUSCULAR HGB CONC 33.7 g/dL (32.0-36.0); MEAN CORPUSCULAR VOLUME 97 fl (80-97); MONOCYTES % (AUTO) 9.7 % (3-13); RED BLOOD COUNT 4.25 10^6/uL (3.72-5.28); RED CELL DISTRIBUTION WIDTH 14.4 % (11.5-14.0); SEGMENTED NEUTROPHILS % (AUTO) 64.6 % (42-78); WHITE BLOOD COUNT 7.2 10^3/uL (4.0-10.5)
[2017-07-01] MEDS ORDERED: DIPHENHYDRAMINE HCL 50 MG/ML VIAL IV ONE (23:53)
--- NOTE | 2017-07-01 23:58 | EKG REPORT ---
SEVERITY:- ABNORMAL ECG - ATRIAL FIBRILLATION, V-RATE [id number] PROBABLE LVH WITH SECONDARY REPOL ABNRM : Confirmed by: Timothy Guerrier 01-Jul-2017 23:57:49
[2017-07-02] MEDS ORDERED: ARIPIPRAZOLE 5 MG TABLET PO ONE
[2017-07-02] MEDS ORDERED: APIXABAN 2.5 MG TABLET PO ONE
[2017-07-02] MEDS ORDERED: METOPROLOL TARTRATE 25 MG TABLET PO ONE (00:01)
[2017-07-02] MEDS ORDERED: METOPROLOL SUCCINATE 50 MG TAB.SR.24H PO ONE (00:02)
[2017-07-02 00:07] LABS: ALANINE AMINOTRANSFERASE 16 U/L (9-52); ALBUMIN 4.7 g/dL (3.5-5.0); ALKALINE PHOSPHATASE 125 U/L (38-126); ANION GAP 14 (5-19); ASPARTATE AMINO TRANSFERASE 35 U/L (14-36); BILIRUBIN,DIRECT 0.9 mg/dL (0.0-0.4); BILIRUBIN,TOTAL 1.8 mg/dL (0.2-1.3); BLOOD UREA NITROGEN 26 mg/dL (7-20); CALCIUM 10.7 mg/dL (8.4-10.2); CARBON DIOXIDE 23 mmol/L (22-30); CHLORIDE 105 mmol/L (98-107); CREATININE RESULT 1.13 mg/dL (0.52-1.25); GLUCOSE 124 mg/dL (75-110); POTASSIUM 3.8 mmol/L (3.6-5.0); SODIUM 141.8 mmol/L (137-145); TOTAL PROTEIN 7.7 g/dL (6.3-8.2)
[2017-07-02 00:16] LABS: CREATINE KINASE MB 7.09 ng/mL (<4.55)
[2017-07-02 00:17] LABS: TROPONIN I 0.034 ng/mL
--- NOTE | 2017-07-02 00:55 | RADIOLOGY REPORT (SQ) ---
EXAM DESCRIPTION: CHEST SINGLE VIEW COMPLETED DATE/TIME: 07/02/2017 12:18 am REASON FOR STUDY: chest pain, a.fib COMPARISON: 06/21/2017. EXAM PARAMETERS: NUMBER OF VIEWS: One view. TECHNIQUE: Single frontal radiographic view of the chest acquired. RADIATION DOSE: NA LIMITATIONS: None. FINDINGS: LUNGS AND PLEURA: No opacities, masses or pneumothorax. No pleural effusion. Mild emphyse matous hyperinflation. Prominent interstitium. MEDIASTINUM AND HILAR STRUCTURES: No masses. Contour normal. HEART AND VASCULAR STRUCTURES: Moderate enlargement of the cardiac silhouette. BONES: No acute findings. Small 7th and 8th posterolateral rib deformities consistent with old injur y. HARDWARE: None in the chest. OTHER: No other significant finding. IMPRESSION: NO ACUTE RADIOGRAPHIC FINDING IN THE CHEST. Moderate chronic cardiac enlargement TECHNICAL DOCUMENTATION: JOB ID: [id number]
[2017-07-02] MEDS ORDERED: DILTIAZEM HCL/D5W 125 MG/125 ML RTUINJ IV PRN (01:12)
[2017-07-02 05:08] LABS: URINE BARBITURATES SCREEN NEGATIVE; URINE METHADONE SCREEN NEGATIVE; URINE OPIATES LOW NEGATIVE; URINE PHENCYCLIDINE SCREEN NEGATIVE
[2017-07-02 09:52] VITALS: BP 140/98
[2017-07-02] MEDS ORDERED: METOPROLOL SUCCINATE 50 MG TAB.SR.24H PO SCH (10:00)
[2017-07-02] MEDS ORDERED: APIXABAN 5 MG TABLET PO SCH (10:00)
[2017-07-02] MEDS ORDERED: ARIPIPRAZOLE 5 MG TABLET PO SCH (10:00)
== END 2017-07-02 09:52 | disposition home or self-care (01) ==
LOC: ER 22:17
DX: R07.9 Chest pain, unspecified (principal); M54.9 Dorsalgia, unspecified; T46.1X6A Underdosing of calcium-channel blockers, initial encounter; Z91.120 Patient's intentional underdosing of medication regimen due to financial hardship; I48.91 Unspecified atrial fibrillation; F17.200 Nicotine dependence, unspecified, uncomplicated; I50.9 Heart failure, unspecified; I11.0 Hypertensive heart disease with heart failure; Z88.0 Allergy status to penicillin
CPT/HCPCS: 93005; 96376; 99285; 96375; 96365; 96366; 36415; 82553; 82550; 83735; 85025; 80053; 84484; 80307; 83880; 71010; 93010; J1200; J3490 ×2; A9270 ×4